=== PATIENT | female | born 1975 | race African-American/Black ===

== ENCOUNTER 2016-12-31 23:33 | Emergency (ER) | payer MEDICAID, OTHER ==
[~2016-12-31] VITALS: Ht 154.9 cm; Wt 79.4 kg
[~2016-12-31 23:33] MED LIST: KEFLEX500 MG ORAL
--- NOTE | 2017-01-01 00:05 | Emergency Room Report ---
History of Present Illness General Chief Complaint: Fever Source: Patient Present Illness HPI This is a 41-year-old female with a history of multiple sclerosis that went into remission. She also has a history of lupus that was in remission. She presents with chief complaint of fever and body pain. Onset for the last couple days. No nausea no vomiting. Denies any diarrhea. Pain is 8/10. She is on a second course of antibiotics for a sinus infection. She was on 10 days of Augmentin and now taking Bactrim. She has a son issue going on for a few months now. Has not seen ENT yet. She also has lymph nodes along both [place] next is been ongoing for many months. Allergies: Coded Allergies: CARBAMAZEPINE (Unverified Allergy, Unknown, 09/25/14) Patient History Past Medical History: see triage record, old chart reviewed Past Surgical History: other Pertinent Family History: none Social History: Denies: smoking Last Menstrual Period: december Now: No Immunizations: other Reviewed Nursing Documentation: PMH: Agreed, PSxH: Agreed Nursing Documentation-PMH Hx Neurological Problems: Yes - lupus, ms Review of Systems Constitutional: Reports: fever Eye: Denies: blurred vision, eye pain ENT: Denies: ear pain, nose congestion, throat swelling Respiratory: Denies: cough, shortness of breath Cardiovascular: Denies: chest pain, palpitations Gastrointestinal: Denies: abdominal pain, diarrhea, nausea, vomiting Musculoskeletal: Denies: back pain, joint pain Skin: Denies: rash Neurological: Denies: headache, numbness Endocrine: Denies: increased thirst, increased urine Hematologic/Lymphatic: Denies: easy bruising All Other Systems: negative except mentioned in HPI Physical Exam Vital Signs Date Time Temp Pulse Resp B/P Pulse Ox O2 Delivery O2 Flow Rate FiO2 12/31/16 23:40 99.9 101 18 103/64 96 Room Air vitals with fever Sp02 EP Interpretation: reviewed, normal General Appearance: well appearing, no apparent distress, alert Head: normocephalic, atraumatic Eyes: bilateral eye EOMI, bilateral eye PERRL ENT: hearing grossly normal, normal pharynx Neck: full range of motion, supple, no meningismus, other - Diffuse adenopathy Respiratory: chest non-tender, lungs clear, normal breath sounds Cardiovascular #1: regular rate, rhythm, no murmur Gastrointestinal: normal bowel sounds, non tender, no mass, no organomegaly, no bruit, non-distended Musculoskeletal: back normal, gait/station normal, normal range of motion Neurologic: alert, oriented x3 Psychiatric: mood/affect normal Skin: warm/dry Medical Decision Making Diagnostic Impression: Primary Impression: Fever Qualified Codes: R50.9 - Fever, unspecified Additional Impressions: Cervical adenopathy Anemia Qualified Codes: D64.9 - Anemia, unspecified Rhabdomyolysis Qualified Codes: M62.82 - Rhabdomyolysis Transaminitis Leukopenia Qualified Codes: D72.819 - Decreased white blood cell count, unspecified ER Course Issue with fever and vague symptoms. Most likely viral in nature. No evidence of sepsis. No evidence of septic joint. She is feeling better now. No evidence of bacterial infection. We'll discharge home. May be an exacerbation of her lupus. She will need a referral to see a film editor supervisor. Doubt leukemia or lymphoma. Lab Results Impression labs with elevated CPK Chest X-Ray Diagnostic Results EP Interpretation: Yes Findings: no consolidation, no effusion, no pneumothorax, no acute cardiopulmonary disease Number of Views: 1 Last Vital Signs Date Time Temp Pulse Resp B/P Pulse Ox O2 Delivery O2 Flow Rate FiO2 12/31/16 23:40 99.9 101 18 103/64 96 Room Air Status: improved Disposition: HOME, SELF-CARE Condition: Stable Scripts Ibuprofen* (MOTRIN*) 600 Mg Tablet 600 MG ORAL THREE TIMES A DAY, #30 TAB 0 Refills Prov: TEO LOCK M.D. 01/01/17 Prednisone* (PREDNISONE*) 20 Mg Tablet 60 MG ORAL DAILY, #15 TAB Prov: TEO LOCK M.D. 01/01/17 Patient Instructions: Fever, Adult, [id number] Additional Instructions: Followup with your DrKeith in 2-3 days. Recommend for her to see an ear nose and throat DrKeith and a film editor supervisor. Return if symptom worsen. TEO LOCK M.D. Jan 01, 2017 00:05
[2017-01-01] MEDS ORDERED: Acetaminophen 500mg (ES) tab ORAL ONE (00:15)
[2017-01-01 00:33] LABS: APPEARANCE,URINE CLEAR; KETONES,URINE NEGATIVE (NEGATIVE); LEUKOCYTE ESTERASE ,URINE 1+ (NEGATIVE); NITRITE,URINE NEGATIVE (NEGATIVE); PH,URINE 6 (4.5-8.0); PROTEIN,URINE NEGATIVE (NEGATIVE); UROBILINOGEN,URINE NORMAL MG/DL (0.0-1.0)
[2017-01-01 00:53] LABS: BACTERIA,URINE FEW /HPF; SQUAMOUS EPITHELIAL CELL,UR MODERATE /LPF (NONE/OCC)
[2017-01-01 00:56] LABS: MEAN CORPUSCULAR HEMOGLOBIN 25.1 PG (27.0-31.0); MEAN CORPUSCULAR HGB CONC 32.1 G/DL (32.0-36.0); MEAN CORPUSCULAR VOLUME 78 FL (80-99); MEAN PLATELET VOLUME 7.1 FL (6.5-10.1); PLATELET COUNT 178 K/UL (150-450); RED BLOOD COUNT 4.53 M/UL (4.20-5.40); RED CELL DISTRIBUTION WIDTH 14.1 % (11.6-14.8); WHITE BLOOD COUNT 2.9 K/UL (4.8-10.8)
[2017-01-01 01:20] LABS: ALANINE AMINOTRANSFERASE 53 U/L (3-33); ALBUMIN/GLOBULIN RATIO 2.2 (1.0-2.7); ANION GAP 19 (5-15); ASPARTATE AMINO TRANSFERASE 129 U/L (5-40); CALCIUM 8.7 mg/dL (8.6-10.2); CARBON DIOXIDE 19 mEQ/L (20-30); CHLORIDE 94 mEQ/L (98-107); GLOMERULAR FILTRATION RATE > 60 mL/min (>60); HEMOLYSIS 13; POTASSIUM 4.1 mEQ/L (3.4-4.9); SODIUM 132 mEQ/L (135-145); TOTAL PROTEIN 5.9 g/dL (6.6-8.7)
[2017-01-01 01:22] LABS: TROPONIN I < 0.30 ng/mL (<=0.30)
[2017-01-01 01:31] LABS: CKMB 20.9 ng/mL (< 3.8)
[2017-01-01] MEDS ORDERED: IBUPROFEN600 MG ORAL (02:12)
[2017-01-01] MEDS ORDERED: PREDNISONE20 MG ORAL (02:12)
[2017-01-01 02:20] VITALS: BP 110/64
[2017-01-01 02:22] VITALS: BP 110/64
[2017-01-01 08:11] LABS: BAND NEUTROPHILS % (MANUAL) 3 % (0-8); BASOPHILS % (MANUAL) 0 % (0-2); EOSINOPHILS % (MANUAL) 0 % (0-3); HYPOCHROMASIA 1+; LYMPHOCYTES % (MANUAL) 28 % (20-45); NEUTROPHILS % (MANUAL) 67 % (45-75); PLATELET ESTIMATE ADEQUATE; PLATELET MORPHOLOGY NORMAL; TOTAL CELLS COUNTED 100
--- NOTE | 2017-01-01 10:20 | Diagnostic Imaging Report ---
Clinical history: Shortness of breath Technique: Portable AP chest radiograph was obtained. Comparison: None Findings: The lungs are well inflated and clear. There is no pneumonia or pulmonary edema. There is no pleural effusion or pneumothorax. The cardiac and mediastinal silhouettes are normal in appearance. The bony thorax is unremarkable. Impression: No acute cardiopulmonary process.
== END 2017-01-01 02:22 | disposition home or self-care (01) ==
LOC: EMR 01-01 02:19
DX: R50.9 Fever, unspecified (principal); R59.0 Localized enlarged lymph nodes; D64.9 Anemia, unspecified; M32.9 Systemic lupus erythematosus, unspecified; G35 Multiple sclerosis
CPT/HCPCS: 36415; 71010; 80053; 81003; 81025; 82550; 82553; 83605; 84484; 85007; 85025; 87040; 96374; 99284

== ENCOUNTER 2018-01-08 00:51 | Emergency (ER) | payer MEDICAID ==
[~2018-01-08] VITALS: Ht 154.9 cm; Wt 79.4 kg
[~2018-01-08 00:51] MED LIST changes: +IBUPROFEN600 MG ORAL; +PREDNISONE20 MG ORAL
[2018-01-08] MEDS ORDERED: ACYCLOVIR400 MG ORAL (01:14)
[2018-01-08] MEDS ORDERED: VITAMIN D35000 UNI2 PO (01:14)
[2018-01-08 01:25] VITALS: BP 148/94
[2018-01-08] MEDS ORDERED: Albuterol ud Inhalation HHN ONE (01:30)
[2018-01-08] MEDS ORDERED: Ipratropium 0.02% Inh Soln 2.5ml UD HHN ONE (01:30)
[2018-01-08] MEDS ORDERED: PREDNISONE20 MG ORAL (02:16)
[2018-01-08] MEDS ORDERED: ALBUTEROL SULF8.5 GM INH (02:16)
[2018-01-08] MEDS ORDERED: AZITHROMYCIN250 MG ORAL (02:16)
--- NOTE | 2018-01-08 02:16 | Emergency Room Report ---
History of Present Illness General Chief Complaint: Upper Respiratory Illness Source: Patient Present Illness HPI Is a 42-year-old female with a history of asthma. She presents with chief complaint of shortness of breath. She's been coughing for the last 3 weeks. Her inhaler is not helping. Denies any fever or chills. Cough is nonproductive in nature. Worse with exertion. Worse with lying flat. Also losing her voice. No recent admission. No recent steroid use. Allergies: Coded Allergies: CARBAMAZEPINE (Unverified Allergy, Unknown, 09/25/14) Patient History Past Medical History: see triage record, old chart reviewed, asthma Past Surgical History: none Pertinent Family History: none Social History: Denies: smoking Last Menstrual Period: December Now: No Immunizations: other Reviewed Nursing Documentation: PMH: Agreed; PSxH: Agreed Nursing Documentation-PMH Hx Neurological Problems: Yes - lupus, ms,MIGRAINE Review of Systems Eye: Denies: eye pain, blurred vision ENT: Reports: throat pain; Denies: ear pain, nose congestion, throat swelling Respiratory: Reports: cough, shortness of breath, wheezing Cardiovascular: Denies: chest pain, palpitations Gastrointestinal: Denies: abdominal pain, diarrhea, nausea, vomiting Musculoskeletal: Denies: back pain, joint pain Skin: Denies: rash Neurological: Denies: headache, numbness Endocrine: Denies: increased thirst, increased urine Hematologic/Lymphatic: Denies: easy bruising All Other Systems: negative except mentioned in HPI Physical Exam Vital Signs Date Time Temp Pulse Resp B/P (MAP) Pulse Ox O2 Delivery O2 Flow Rate FiO2 01/08/18 01:06 99.4 85 16 148/94 97 Room Air 99.3 01/08/18 01:44 21 vitals normal except for low-grade fever Sp02 EP Interpretation: reviewed, normal General Appearance: well appearing, no apparent distress, alert Head: normocephalic, atraumatic Eyes: bilateral eye PERRL, bilateral eye EOMI ENT: hearing grossly normal, normal pharynx Neck: full range of motion, supple, no meningismus Respiratory: chest non-tender, respiratory distress, decreased breath sounds, accessory muscle use, wheezing Cardiovascular #1: regular rate, rhythm, no murmur Gastrointestinal: normal bowel sounds, non tender, no mass, no organomegaly, no bruit, non-distended Musculoskeletal: back normal, gait/station normal, normal range of motion Psychiatric: mood/affect normal Skin: warm/dry Medical Decision Making Diagnostic Impression: Primary Impression: Upper respiratory infection Qualified Codes: J06.9 - Acute upper respiratory infection, unspecified Additional Impressions: Atypical pneumonia Asthma exacerbation Qualified Codes: J45.21 - Mild intermittent asthma with (acute) exacerbation ER Course Patient presents with asthma exacerbation. She had a URI that has been persistent for 3 weeks. Concerning for secondary atypical pneumonia. We'll go ahead and put on antibiotics. Better after breathing treatment. No evidence of sepsis, ACS, PE, dissection to name a few. Last Vital Signs Date Time Temp Pulse Resp B/P (MAP) Pulse Ox O2 Delivery O2 Flow Rate FiO2 01/08/18 02:06 80 20 100 Room Air 21 01/08/18 01:25 99.3 148/94 99.3 Status: improved Disposition: HOME, SELF-CARE Condition: Stable Scripts Azithromycin* (ZITHROMAX*) 250 Mg Tablet 250 MG ORAL DAILY, #6 TAB 0 Refills Take two tablets by mouth today, then take one tablet by mouth daily for four days Prov: TEO LOCK M.D. 01/08/18 Prednisone* (PREDNISONE*) 20 Mg Tablet 60 MG ORAL DAILY, #12 TAB Prov: TEO LOCK M.D. 01/08/18 Albuterol Sulfate* (ALBUTEROL SULFATE MDI*) 8.5 Gm Hfa.aer.ad 2 PUFF INH Q4H PRN for cough/wheezing, #1 EA 0 Refills Prov: TEO LOCK M.D. 01/08/18 Referrals: [facility]ERR[facility] (PCP) Patient Instructions: Upper Respiratory Infection, Adult Additional Instructions: Follow-up with your DrKeith in 2 to 3 days. Return if symptom worsen. TEO LOCK M.D. Jan 08, 2018 02:16
[2018-01-08 02:21] VITALS: BP 148/94
== END 2018-01-08 02:21 | disposition home or self-care (01) ==
LOC: EMR 01:37
DX: J06.9 Acute upper respiratory infection, unspecified (principal); J18.9 Pneumonia, unspecified organism; J45.901 Unspecified asthma with (acute) exacerbation; M32.9 Systemic lupus erythematosus, unspecified
CPT/HCPCS: 94640; 99284; J7512

== ENCOUNTER 2018-01-22 14:42 | Emergency (ER) | payer MEDICAID ==
[~2018-01-22] VITALS: Ht 157.5 cm; Wt 79.4 kg
[~2018-01-22 14:42] MED LIST changes: +ACYCLOVIR400 MG ORAL; +ALBUTEROL SULF8.5 GM INH; +AZITHROMYCIN250 MG ORAL; +VITAMIN D35000 UNI2 PO
[2018-01-22 14:46] VITALS: BP 140/76
[2018-01-22] MEDS ORDERED: GUAIFENESIN-CO118 M1 ORAL (15:04)
[2018-01-22] MEDS ORDERED: PREDNISONE20 MG ORAL (15:04)
[2018-01-22] MEDS ORDERED: ZYRTEC10 MG ORAL (15:04)
--- NOTE | 2018-01-22 15:09 | Emergency Room Report ---
History of Present Illness General Chief Complaint: Upper Respiratory Illness Source: Patient, Medical Record Present Illness HPI Patient presents with complaints of cough She reports that after her initial visit she started doing somewhat better Several days ago again began having cough She feels that at nighttime or when there is heat the cough is worse Denies any shortness of breath denies any chest pain patient has long-standing history of asthma She also does have a cat however reports that she has been allergy tested and does not have allergies to the CAT Patient has albuterol at home has also had Atrovent Patient also reports using cough syrup Allergies: Coded Allergies: CARBAMAZEPINE (Unverified Allergy, Unknown, 09/25/14) Patient History Past Medical History: see triage record Pertinent Family History: none Last Menstrual Period: 01/14/18 Reviewed Nursing Documentation: PMH: Agreed; PSxH: Agreed Nursing Documentation-PMH Past Medical History: No History, Except For Hx Neurological Problems: Yes - lupus, ms,MIGRAINE Review of Systems All Other Systems: negative except mentioned in HPI Physical Exam Vital Signs Date Time Temp Pulse Resp B/P (MAP) Pulse Ox O2 Delivery O2 Flow Rate FiO2 01/22/18 14:46 76 18 Room Air 01/22/18 14:46 98.3 140/76 97 98.3 Sp02 EP Interpretation: reviewed, normal General Appearance: well appearing, no apparent distress Head: normocephalic, atraumatic Eyes: bilateral eye PERRL, bilateral eye EOMI ENT: hearing grossly normal, normal pharynx, TMs + canals normal, uvula midline Neck: full range of motion, supple, no meningismus, no bony tend Respiratory: lungs clear, normal breath sounds, no rhonchi, no respiratory distress, no retraction, no accessory muscle use, other - However the patient does have intermittent dry coughing episodes Cardiovascular #1: normal peripheral pulses, regular rate, rhythm, no edema, no gallop, no JVD, no murmur Gastrointestinal: normal bowel sounds, non tender, soft, no mass, no organomegaly, non-distended, no guarding, no hernia, no pulsatile mass, no rebound Musculoskeletal: normal inspection Neurologic: oriented x3, responsive, carpenter repair III-XII nml as tested, motor strength/ tone normal, sensory intact Psychiatric: mood/affect normal Skin: normal color, no rash, warm/dry, palpation normal Lymphatic: normal inspection, no adenopathy Medical Decision Making Diagnostic Impression: Primary Impression: reactive airway disease ER Course Given the patient's history and presentation Patient appears to have symptoms of URI pathology There appears to be some asthmatic type component along with some allergic component as well Patient's respirations are appropriate, lung sánchez are clear We will attempt different medications such as antihistamine as well and patient requires close outpatient follow-up Last Vital Signs Date Time Temp Pulse Resp B/P (MAP) Pulse Ox O2 Delivery O2 Flow Rate FiO2 01/22/18 14:46 98.3 76 18 140/76 97 Room Air 98.2 Status: unchanged Disposition: HOME, SELF-CARE Condition: Stable Scripts Guaifenesin/Codeine Phos* (ROBITUSSIN AC*) 118 Ml Liquid 5 ML ORAL Q6H PRN for For Cough for 7 Days, #118 ML 0 Refills Prov: Yoana Hernandez DO 01/22/18 Cetirizine Hcl* (ZYRTEC*) 10 Mg Tablet 10 MG ORAL DAILY, #30 TAB 0 Refills Prov: Yoana Hernandez DO 01/22/18 Prednisone* (PREDNISONE*) 20 Mg Tablet 20 MG ORAL BID, #12 TAB Prov: Yoana Hernandez DO 01/22/18 Patient Instructions: Upper Respiratory Infection, Adult, Asthma, Acute Bronchospasm Additional Instructions: Patient is provided with the discharge instructions notified to follow up with primary doctor in the next 2-3 days otherwise return to the er with any worsening symptoms. Please note that this report is being documented using [employer] technology. This can lead to erroneous entry secondary to incorrect interpretation by the dictating instrument. Yoana Hernandez DO Jan 22, 2018 15:08
[2018-01-22 15:11] VITALS: BP 149/89
== END 2018-01-22 15:25 | disposition home or self-care (01) ==
LOC: EMR 15:18
DX: J45.909 Unspecified asthma, uncomplicated (principal); Z88.8 Allergy status to other drugs, medicaments and biological substances
CPT/HCPCS: 99284

== ENCOUNTER 2018-05-03 21:55 | Emergency (ER) | payer MEDICAID ==
[~2018-05-03] VITALS: Ht 157.5 cm; Wt 81.6 kg
[~2018-05-03 21:55] MED LIST changes: +GUAIFENESIN-CO118 M1 ORAL; +ZYRTEC10 MG ORAL
[2018-05-03 22:12] VITALS: BP 147/66
[2018-05-03] MEDS ORDERED: IBUPROFEN600 MG ORAL (22:34)
[2018-05-03 22:48] VITALS: BP 0/0
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
--- NOTE | 2018-05-04 10:04 | Diagnostic Imaging Report ---
Indication: Pain Technique: 3 views left hand Comparison: none Findings: There is a fracture deformity of the base of the fifth distal phalanx with suggestion of acute fracture lines, only visible on the lateral view. No other acute fractures. No dislocations. The joint spaces are preserved. Impression: Positive for fracture of the base of the fifth distal phalanx This was discussed by phone with Dr. Cadet in the emergency room at the time of interpretation
== END 2018-05-03 22:55 | disposition home or self-care (01) ==
LOC: EMR 22:50
DX: S63.617A Unspecified sprain of left little finger, initial encounter (principal); Y04.0XXA Assault by unarmed brawl or fight, initial encounter; Y93.89 Activity, other specified; Y92.9 Unspecified place or not applicable
CPT/HCPCS: 99283

== ENCOUNTER 2018-09-18 13:23 | Inpatient (IN) | payer MEDICAID ==
[~2018-09-18] VITALS: Ht 157.5 cm; Wt 79.4 kg
[2018-09-18] MEDS ORDERED: plaquenil ORAL (13:44)
[2018-09-18 14:05] VITALS: BP 166/92
[2018-09-18] MEDS ORDERED: Albuterol ud Inhalation HHN ONE (14:30)
--- NOTE | 2018-09-18 14:30 | Emergency Room Report ---
History of Present Illness General Chief Complaint: Flu Like Symptoms Source: Patient Present Illness HPI The patient states that she has had progressively worsening cough, congestion and shortness of breath for the past week. The patient states that she is also had bodyaches and fever and chills. She states that her temp has been anywhere from 99-102. She states she has tried many different [id number] cold and flu medications without relief. She has had sputum production. She denies headache or neck pain. She denies nausea or vomiting. She denies abdominal pain. She denies dysuria or hematuria. She denies chest pain. She does have a history of lupus. She is on multiple medications to include Plaquenil. She did not receive the influenza vaccine. She has no other complaints. Allergies: Coded Allergies: CARBAMAZEPINE (Unverified Allergy, Unknown, 09/25/14) Patient History Past Medical History: see triage record, asthma, other - Lupus, MS Social History: Denies: smoking, alcohol use, drug use Last Menstrual Period: 09/01/2018 Reviewed Nursing Documentation: PMH: Agreed; PSxH: Agreed Nursing Documentation-PMH Hx Cardiac Problems: No Hx Hypertension: No Hx Pacemaker: No Hx Asthma: Yes Hx COPD: No Hx Diabetes: No Hx Cancer: No Hx Gastrointestinal Problems: No Hx Dialysis: No History Of Psychiatric Problem: No Hx Neurological Problems: Yes - Lupus, MS, MIGRAINE Hx Cerebrovascular Accident: No Hx Seizures: No Review of Systems All Other Systems: negative except mentioned in HPI Physical Exam Vital Signs Date Time Temp Pulse Resp B/P (MAP) Pulse Ox O2 Delivery O2 Flow Rate FiO2 09/18/18 13:38 98.6 85 16 148/88 96 Room Air 09/18/18 14:05 100 Sp02 EP Interpretation: reviewed, normal General Appearance: no apparent distress, alert, GCS 15, non-toxic Head: normocephalic, atraumatic Eyes: bilateral eye normal inspection, bilateral eye PERRL ENT: hearing grossly normal, normal pharynx, no angioedema, normal voice Neck: full range of motion, supple/symm/no masses Respiratory: chest non-tender, no respiratory distress, no retraction, no accessory muscle use, speaking full sentences, wheezing, expiration, other - Recurrent coughing episodes Cardiovascular #1: regular rate, rhythm, no edema Gastrointestinal: normal bowel sounds, non tender, soft, non-distended, no guarding, no rebound Rectal: deferred Musculoskeletal: back normal, gait/station normal, normal range of motion, non- tender Neurologic: alert, oriented x3, responsive, motor strength/tone normal, sensory intact, speech normal Psychiatric: judgement/insight normal, memory normal, mood/affect normal, no suicidal/homicidal ideation Skin: normal color, no rash, warm/dry, well hydrated Medical Decision Making Diagnostic Impression: Primary Impression: Asthma exacerbation Additional Impression: Pneumonia ER Course This patient has pneumonia. She also has an asthma exacerbation. She appears clinically ill. She is having active rigors and febrile to 103 here in the emergency department. She is given IV Rocephin and albuterol treatments. I feel that this patient should be admitted for further monitoring and pulmonary hygiene. I am concerned that the patient's asthma exacerbation could worsen. The patient is also immunocompromised at baseline secondary to MS and lupus and she could deteriorate rapidly. She is admitted for further evaluation and treatment. Please note that this Emergency Department Report was dictated using [employer] technology software, occasionally this can lead to erroneous entry secondary to interpretation by the dictation equipment. Laboratory Tests Test 09/18/18 14:40 White Blood Count 7.0 K/UL (4.8-10.8) Red Blood Count 4.15 M/UL (4.20-5.40) L Hemoglobin 10.7 G/DL (12.0-16.0) L Hematocrit 33.2 % (37.0-47.0) L Mean Corpuscular Volume 80 FL (80-99) Mean Corpuscular Hemoglobin 25.8 PG (27.0-31.0) L Mean Corpuscular Hemoglobin Concent 32.3 G/DL (32.0-36.0) Red Cell Distribution Width 11.8 % (11.6-14.8) Platelet Count 175 K/UL (150-450) Mean Platelet Volume 9.0 FL (6.5-10.1) Neutrophils (%) (Auto) 71.1 % (45.0-75.0) Lymphocytes (%) (Auto) 21.8 % (20.0-45.0) Monocytes (%) (Auto) 4.7 % (1.0-10.0) Eosinophils (%) (Auto) 1.1 % (0.0-3.0) Basophils (%) (Auto) 1.3 % (0.0-2.0) Sodium Level 141 MMOL/L (136-145) Potassium Level 3.5 MMOL/L (3.5-5.1) Chloride Level 105 MMOL/L (98-107) Carbon Dioxide Level 22 MMOL/L (21-32) Anion Gap 14 mmol/L (5-15) Blood Urea Nitrogen 11 mg/dL (7-18) Creatinine 0.8 MG/DL (0.55-1.30) Estimate Glomerular Filtration Rate > 60 mL/min (>60) Glucose Level 74 MG/DL (74-106) Calcium Level 8.8 MG/DL (8.5-10.1) Total Bilirubin 0.4 MG/DL (0.2-1.0) Aspartate Amino Transferase (AST) 41 U/L (15-37) H Alanine Aminotransferase (ALT) 29 U/L (12-78) Alkaline Phosphatase 110 U/L (46-116) Total Protein 6.9 G/DL (6.4-8.2) Albumin 3.2 G/DL (3.4-5.0) L Globulin 3.7 g/dL Albumin/Globulin Ratio 0.9 (1.0-2.7) L Microbiology Date/Time Source Procedure Growth Status 09/18/18 13:10 Nasal Nares Influenza Types A,B Antigen (CASSANDRA) - Final Complete Chest X-Ray Diagnostic Results Chest X-Ray Diagnostic Results : Chest X-Ray Ordered: Yes # of Views/Limited/Complete: 1 View Indication: Other - cough EP Interpretation: No Interpretation: other - LLL opacity Impression: Other - See above and official report in EMR Electronically Signed by: Gaby Lang DO Last Vital Signs Date Time Temp Pulse Resp B/P (MAP) Pulse Ox O2 Delivery O2 Flow Rate FiO2 09/18/18 14:05 98.5 77 12 166/92 100 Room Air 09/18/18 14:05 100 Disposition: ADMITTED INPATIENT Condition: Serious Gaby Lang DO Sep 18, 2018 14:29
[2018-09-18 15:00] LABS: BASOPHILS % (AUTO) 1.3 % (0.0-2.0); EOSINOPHILS % (AUTO) 1.1 % (0.0-3.0); HEMATOCRIT 33.2 % (37.0-47.0); HEMOGLOBIN 10.7 G/DL (12.0-16.0); LYMPHOCYTES % (AUTO) 21.8 % (20.0-45.0); MEAN CORPUSCULAR VOLUME 80 FL (80-99); MONOCYTES % (AUTO) 4.7 % (1.0-10.0); NEUTROPHILS % (AUTO) 71.1 % (45.0-75.0); PLATELET COUNT 175 K/UL (150-450); RED BLOOD COUNT 4.15 M/UL (4.20-5.40); RED CELL DISTRIBUTION WIDTH 11.8 % (11.6-14.8)
[2018-09-18 15:09] LABS: ANION GAP 14 mmol/L (5-15); BLOOD UREA NITROGEN 11 mg/dL (7-18); CALCIUM 8.8 MG/DL (8.5-10.1); CARBON DIOXIDE 22 MMOL/L (21-32); CHLORIDE 105 MMOL/L (98-107); CREATININE 0.8 MG/DL (0.55-1.30); POTASSIUM 3.5 MMOL/L (3.5-5.1); SODIUM 141 MMOL/L (136-145)
[2018-09-18 15:13] LABS: ALANINE AMINOTRANSFERASE 29 U/L (12-78); ALBUMIN 3.2 G/DL (3.4-5.0); ALBUMIN/GLOBULIN RATIO 0.9 (1.0-2.7); ALKALINE PHOSPHATASE 110 U/L (46-116); ASPARTATE AMINO TRANSFERASE 41 U/L (15-37); BILIRUBIN,TOTAL 0.4 MG/DL (0.2-1.0)
--- NOTE | 2018-09-18 15:58 | Diagnostic Imaging Report ---
Indication: Cough Comparison: 01/01/2017 A single view chest radiograph was obtained. Findings: There is a faint density in the retrocardiac aspect of the left lower lobe. Pneumonia not excluded. Correlate clinically. This is questionable. Heart size is normal. Bones are unremarkable. IMPRESSION: Query pneumonia at the left lung base.
[2018-09-18 16:12] VITALS: BP 158/66
[2018-09-18] MEDS ORDERED: cefTRIAXone 1 GM in NS 55 ML IVPB ONE (17:15)
[2018-09-18] MEDS ORDERED: Acetaminophen 500mg (ES) tab ORAL ONE (17:15)
[2018-09-18] MEDS ORDERED: IBUPROFEN800 M1 PO (18:24)
[2018-09-18] MEDS ORDERED: DICLOFENAC SODI75 MG ORAL (18:26)
[2018-09-18 20:00] VITALS: BP 122/62
[2018-09-18 20:50] VITALS: BP 132/78
[2018-09-18] MEDS: Heparin 5000 units/ml inj SUBQ SCH (21:00)
[2018-09-18] MEDS ORDERED: LORazepam Inj 2mg/ml 1ml IV PRN (21:15)
[2018-09-18] MEDS ORDERED: Nitroglycerin Subl 0.4mg tab SL PRN (21:15)
[2018-09-18] MEDS ORDERED: Ketorolac 30mg Inj IV PRN (21:15)
[2018-09-18] MEDS: Piperacillin/Tazobactam 3.375 GM in D5W 110 ML IVPB SCH (22:26)
[2018-09-18] MEDS: Solu-MEDROL 125mg Inj IV SCH (23:21)
[2018-09-18] MEDS: Promethazine/Codeine 5ml UD ORAL PRN (23:22)
[2018-09-19] VITALS: BP 124/75
[2018-09-19 04:00] VITALS: BP 148/79
[2018-09-19] MEDS: Solu-MEDROL 125mg Inj IV SCH ×3 (05:36→17:16)
[2018-09-19] MEDS: Piperacillin/Tazobactam 3.375 GM in D5W 110 ML IVPB SCH ×3 (05:36→21:21)
[2018-09-19] MEDS: Albuterol/Ipratropium 3ml neb HHN PRN ×3 (05:55→13:49)
[2018-09-19] MEDS: Promethazine/Codeine 5ml UD ORAL PRN ×3 (05:58→21:21)
[2018-09-19] MEDS: Morphine Sulfate 2mg/ml Inj IVP PRN ×2 (06:20→12:06)
[2018-09-19 08:00] VITALS: BP 144/80
[2018-09-19] MEDS: Heparin 5000 units/ml inj SUBQ SCH ×2 (09:00→21:00)
[2018-09-19 12:00] VITALS: BP 140/80
--- NOTE | 2018-09-19 12:57 | Consultation ---
History of Present Illness General Date patient seen: Sep 19, 2018 Chief Complaint: Flu Like Symptoms Present Illness HPI 43 year old male with hx of SLE (inactive for years), Asthma presented to ER with CC of progressively worsening cough, congestion and shortness of breath for the past week with fever and chills. She states that her temp has been anywhere from 99-102. She has had sputum production. She denied chest pain. She is on Plaquenil for her Lupus. she was diagnosed to have acute exacerbation of Asthma with purulent bronchitis and admitted for further treatment. Allergies: Coded Allergies: CARBAMAZEPINE (Unverified Allergy, Unknown, 09/25/14) Medication History Scheduled Acyclovir* (Acyclovir*), 400 MG ORAL DAILY, (Reported) Cetirizine Hcl* (Zyrtec*), 10 MG ORAL DAILY Diclofenac Sod* (Voltaren*), 75 MG ORAL DAILY, (Reported) [plaquenil], 400 MG ORAL DAILY, (Reported) Scheduled PRN Albuterol Sulfate* (Albuterol Sulfate Mdi*), 2 PUFF INH Q4H PRN for cough/ wheezing Ibuprofen (Ibuprofen), 800 MG PO Q8HR PRN for FEVER, (Reported) Discontinued Medications Guaifenesin/Codeine Phos* (Robitussin Ac*), 5 ML ORAL Q6H PRN for For Cough Discontinued Reason: Pt stopped taking med Patient History Healthcare decision maker N Resuscitation status Advanced Directive on File Past Medical/Surgical History Past Medical/Surgical History: (1) History of systemic lupus erythematosus (SLE) Review of Systems Constitutional: Reports: fever, malaise All Other Systems: negative except mentioned in HPI Physical Exam General Appearance: WD/WN Lines, tubes and drains: peripheral HEENT: normocephalic, atraumatic Neck: non-tender, supple Respiratory/Chest: chest wall non-tender, crackles/rales, rhonchi - left, rhonchi - right Cardiovascular/Chest: normal peripheral pulses, normal rate Abdomen: normal bowel sounds, non tender Genitourinary/Rectal: normal genital exam Extremities: normal range of motion Last 24 Hour Vital Signs Date Time Temp Pulse Resp B/P (MAP) Pulse Ox O2 Delivery O2 Flow Rate FiO2 09/19/18 09:21 80 14 96 Room Air 21 09/19/18 09:14 88 14 94 Room Air 21 09/19/18 09:00 Room Air 09/19/18 08:00 98.0 69 18 144/80 (101) 97 09/19/18 06:04 98 24 98 Room Air 21 09/19/18 05:54 101 22 96 Room Air 21 09/19/18 04:51 84 20 Room Air 21 09/19/18 04:00 97.4 66 18 148/79 (102) 98 09/19/18 00:00 98.1 98 18 124/75 (91) 98 09/18/18 21:18 Room Air 09/18/18 20:50 98.3 75 20 132/78 (96) 98 09/18/18 20:39 99.6 129 18 122/62 98 Room Air 21 09/18/18 20:00 99.6 18 122/62 98 09/18/18 19:15 99.6 09/18/18 17:51 103.6 09/18/18 16:12 129 25 158/66 99 Room Air 09/18/18 15:22 121 22 100 Room Air 21 09/18/18 14:37 80 22 Room Air 21 09/18/18 14:35 80 22 100 Room Air 21 09/18/18 14:05 98.5 77 12 166/92 100 Room Air 09/18/18 14:05 77 12 Room Air 100 09/18/18 13:38 98.6 85 16 148/88 96 Room Air Intake and Output 09/18/18 09/19/18 19:00 07:00 Intake Total 1000 ml 617.5 ml Output Total 200 ml Balance 1000 ml 417.5 ml Intake Oral 480 ml IV Total 1000 ml 137.5 ml Output Urine Total 200 ml # Voids 3 Laboratory Tests Test 09/18/18 14:40 White Blood Count 7.0 K/UL (4.8-10.8) Red Blood Count 4.15 M/UL (4.20-5.40) L Hemoglobin 10.7 G/DL (12.0-16.0) L Hematocrit 33.2 % (37.0-47.0) L Mean Corpuscular Volume 80 FL (80-99) Mean Corpuscular Hemoglobin 25.8 PG (27.0-31.0) L Mean Corpuscular Hemoglobin Concent 32.3 G/DL (32.0-36.0) Red Cell Distribution Width 11.8 % (11.6-14.8) Platelet Count 175 K/UL (150-450) Mean Platelet Volume 9.0 FL (6.5-10.1) Neutrophils (%) (Auto) 71.1 % (45.0-75.0) Lymphocytes (%) (Auto) 21.8 % (20.0-45.0) Monocytes (%) (Auto) 4.7 % (1.0-10.0) Eosinophils (%) (Auto) 1.1 % (0.0-3.0) Basophils (%) (Auto) 1.3 % (0.0-2.0) Sodium Level 141 MMOL/L (136-145) Potassium Level 3.5 MMOL/L (3.5-5.1) Chloride Level 105 MMOL/L (98-107) Carbon Dioxide Level 22 MMOL/L (21-32) Anion Gap 14 mmol/L (5-15) Blood Urea Nitrogen 11 mg/dL (7-18) Creatinine 0.8 MG/DL (0.55-1.30) Estimat Glomerular Filtration Rate > 60 mL/min (>60) Glucose Level 74 MG/DL (74-106) Calcium Level 8.8 MG/DL (8.5-10.1) Total Bilirubin 0.4 MG/DL (0.2-1.0) Aspartate Amino Transf (AST/SGOT) 41 U/L (15-37) H Alanine Aminotransferase (ALT/SGPT) 29 U/L (12-78) Alkaline Phosphatase 110 U/L (46-116) Total Protein 6.9 G/DL (6.4-8.2) Albumin 3.2 G/DL (3.4-5.0) L Globulin 3.7 g/dL Albumin/Globulin Ratio 0.9 (1.0-2.7) L Microbiology Date/Time Source Procedure Growth Status 09/18/18 23:20 Sputum Gram Stain - Final Resulted 09/18/18 23:20 Sputum Sputum Culture Pending Resulted 09/18/18 13:10 Nasal Nares Influenza Types A,B Antigen (CASSANDRA) - Final Complete Height (Feet): 5 Height (Inches): 2.00 Weight (Pounds): 175 Medications Current Medications Medications (Trade) Dose Ordered Sig/Aileen Route PRN Reason Start Time Stop Time Status Last Admin Dose Admin Acetaminophen (Tylenol) 650 mg Q6H PRN ORAL Mild Pain/Temp > 100.5 09/18/18 21:15 10/18/18 21:14 Albuterol/ Ipratropium (Albuterol/ Ipratropium) 3 ml Q4H PRN HHN dyspnea 09/18/18 21:15 09/23/18 21:14 09/19/18 09:13 Dextrose (Dextrose 50%) 25 ml Q30M PRN IV Hypoglycemia 09/18/18 21:15 10/18/18 21:14 Dextrose (Dextrose 50%) 50 ml Q30M PRN IV Hypoglycemia 09/18/18 21:15 10/18/18 21:14 Heparin Sodium (Porcine) (Heparin 5000 units/ml) 5,000 units EVERY 12 HOURS SUBQ 09/18/18 21:00 10/18/18 20:59 Ketorolac Tromethamine (Toradol 30mg) 30 mg Q8H PRN IV moderate pain 4-6 09/18/18 21:15 09/23/18 21:14 Lorazepam (Ativan 2mg/ml 1ml) 0.5 mg Q4H PRN IV For Anxiety 09/18/18 21:15 09/25/18 21:14 Methylprednisolone Sodium Succinate (Solu-MEDROL) 60 mg EVERY 6 HOURS IV 09/19/18 00:00 10/19/18 00:00 09/19/18 12:06 Morphine Sulfate (Morphine Sulfate) 2 mg Q4H PRN IVP severe pain 7-10 09/18/18 21:15 09/25/18 21:14 09/19/18 12:06 Nitroglycerin (Ntg) 0.4 mg Q5M X 3 DOSES PRN SL Prn Chest Pain 09/18/18 21:15 10/18/18 21:14 Ondansetron HCl (Zofran) 4 mg Q6H PRN IVP Nausea & Vomiting 09/18/18 21:15 10/18/18 21:14 Piperacillin Sod/ Tazobactam Sod 3.375 gm/Dextrose 110 ml @ 27.5 mls/hr EVERY 8 HOURS IVPB 09/18/18 22:00 09/25/18 21:59 09/19/18 05:36 Promethazine HCl/ Codeine (Phenergan with Codeine) 5 ml Q6H PRN ORAL cough 09/18/18 21:15 10/18/18 21:14 09/19/18 05:58 Temazepam (Restoril) 15 mg HSPRN PRN ORAL Insomnia 09/18/18 21:15 09/25/18 21:14 09/19/18 01:18 Theophylline (Bennett-Dur) 100 mg EVERY 12 HOURS ORAL 09/19/18 21:00 10/19/18 20:59 Assessment/Plan Problem List: (1) Asthma exacerbation ICD Codes: J45.901 - Unspecified asthma with (acute) exacerbation SNOMED: 312120364 (2) Pneumonia ICD Codes: J18.9 - Pneumonia, unspecified organism SNOMED: 815777321 (3) History of systemic lupus erythematosus (SLE) ICD Codes: Z87.39 - Personal history of other diseases of the musculoskeletal system and connective tissue SNOMED: 490664710 Assessment/Plan respiratory treatment iv steroids iv abx check sputum Rheumatology to see ( if available) Kadeem Lainez MD Sep 19, 2018 12:57
[2018-09-19 16:00] VITALS: BP 150/68
[2018-09-19] MEDS ORDERED: Tubing IV Secondary IV ONE (16:57)
[2018-09-19] MEDS ORDERED: NS 500ML ONE (16:57)
[2018-09-19 20:00] VITALS: BP 153/78
--- NOTE | 2018-09-19 21:10 | History & Physical ---
History and Physical History & Physicial Dictated for Int Med-Dr Gonzalez no. [id number]. Leonid Salmeron MD Sep 19, 2018 21:10
[2018-09-19] MEDS: Theophylline ER 100mg ORAL SCH (21:21)
--- NOTE | 2018-09-19 23:45 | History and Physical Report ---
DATE OF ADMISSION: 09/19/2018 CHIEF COMPLAINT: The patient is a 43-year-old female, presents with chief complaint of shortness of breath and cough. HISTORY OF PRESENT ILLNESS: Began on 09/10/2018. The patient was exposed to an upper respiratory tract infection by her grandchild. The patient states since that time, she has had fevers and chills. The patient has body aches. The patient has a cough, which is productive of a yellowish green phlegm. The patient also developed shortness of breath. The patient presented to [place] emergency room. The patient is admitted for acute exacerbation of asthma versus pneumonia. PAST MEDICAL HISTORY: Significant for: 1. Asthma. 2. Lupus. 3. History of multiple sclerosis. PAST SURGICAL HISTORY: Significant for bilateral tubal ligation. CURRENT MEDICATIONS: 1. Acyclovir 400 mg p.o. daily. 2. Albuterol metered-dose inhaler two puffs p.o. q.i.d. p.r.n. 3. Zyrtec 10 mg p.o. daily. 4. Voltaren 75 mg p.o. daily. 5. Ibuprofen 800 mg p.o. q.8 h. p.r.n. 6. Plaquenil 40 mg p.o. daily. ALLERGIES: To Tegretol. 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 The patient denies tobacco use. The patient admits to rare alcohol use. REVIEW OF SYSTEMS: CONSTITUTIONAL: The patient denies weight loss or weight gain. The patient denies fevers or chills. HEENT: The patient denies ear or throat pain. The patient denies headache. CARDIOVASCULAR: The patient denies palpitations or chest pain. CHEST: The patient complains of shortness of breath as above. The patient complains of productive cough. The patient denies wheezes. ABDOMEN: The patient denies nausea, vomiting, diarrhea, or constipation. GENITOURINARY: The patient denies dysuria or increased frequency of urination. NEUROMUSCULAR: The patient denies seizures or generalized weakness. PHYSICAL EXAMINATION: VITAL SIGNS: Temperature 98.9, respirations 18, pulse 74, and blood pressure 140/80. GENERAL: The patient is a well-developed and well-nourished slightly obese female, in no apparent distress. HEENT: Eyes, pupils equal and responsive to light and accommodation. Extraocular movements are intact. NECK: Supple without lymphadenopathy. CHEST: Lungs are with diffuse wheezes bilaterally. There are no crackles heard. There are decreased breath sounds in the left lower lobe. CARDIOVASCULAR: Regular rhythm and rate. S1, S2 are normal without murmurs, rubs, or gallops. ABDOMEN: Soft, nontender, and nondistended with positive bowel sounds. No evidence of hepatosplenomegaly. Currently, no rebound or guarding noted. EXTREMITIES: Negative for clubbing, cyanosis, or edema. RECTAL: Refused. GENITAL: Refused. NEUROLOGIC: Cranial nerves II through XII are grossly intact without focal deficits. Motor strength is 5/5 bilaterally intact. Deep tendon reflexes are 2+ plantar. LABORATORY AND DIAGNOSTIC DATA: A chest x-ray showed a faint density in the retrocardiac area of the left lower lobe. WBC 7.0, hemoglobin 10.7, hematocrit 33.2, and platelets 175,000. Sodium 141, potassium 3.5, chloride 105, CO2 22, BUN 11, creatinine 0.8, and glucose 74. ASSESSMENT: This is a 43-year-old female with: 1. Left lower lobe pneumonia. 2. Shortness of breath. 3. Asthma. 4. Systemic lupus. 5. Multiple sclerosis. TREATMENT: 1. Left lower lobe pneumonia. A Pulmonary consultation has been obtained with Dr. Kadeem Lainez. The patient has been started empirically on intravenous Zosyn. We will follow recommendations of Pulmonary. 2. Shortness of breath/asthma. The patient has been started empirically on IV Solu-Medrol. The patient is also on theophylline. We will follow recommendations of Pulmonary. 3. Systemic lupus. Continue Plaquenil as above. 4. History of multiple sclerosis. Leonid Salmeron M.D. DR: YAMILA JOB#: [id number] CC:
[2018-09-20] VITALS (8 sets, daily range): BP systolic 146–173; BP diastolic 79–102
[2018-09-20] MEDS: Solu-MEDROL 125mg Inj IV SCH ×3 (00:07→12:03)
[2018-09-20] MEDS: Morphine Sulfate 2mg/ml Inj IVP PRN ×3 (00:08→19:57)
[2018-09-20] MEDS: Albuterol/Ipratropium 3ml neb HHN PRN ×2 (02:14→13:22)
[2018-09-20] MEDS: Piperacillin/Tazobactam 3.375 GM in D5W 110 ML IVPB SCH ×3 (05:25→21:55)
[2018-09-20] MEDS: Theophylline ER 100mg ORAL SCH ×2 (08:58→21:55)
[2018-09-20] MEDS: Heparin 5000 units/ml inj SUBQ SCH ×2 (08:59→21:00)
[2018-09-20 09:13] LABS: HEMATOCRIT 31.8 % (37.0-47.0); HEMOGLOBIN 10.4 G/DL (12.0-16.0); MEAN CORPUSCULAR VOLUME 79 FL (80-99); PLATELET COUNT 242 K/UL (150-450); RED BLOOD COUNT 4.02 M/UL (4.20-5.40); RED CELL DISTRIBUTION WIDTH 11.7 % (11.6-14.8); WHITE BLOOD COUNT 15.2 K/UL (4.8-10.8)
[2018-09-20 09:30] LABS: ANION GAP 12 mmol/L (5-15); BLOOD UREA NITROGEN 9 mg/dL (7-18); CALCIUM 8.8 MG/DL (8.5-10.1); CARBON DIOXIDE 22 MMOL/L (21-32); CHLORIDE 106 MMOL/L (98-107); CREATININE 0.8 MG/DL (0.55-1.30); POTASSIUM 3.6 MMOL/L (3.5-5.1); SODIUM 140 MMOL/L (136-145)
--- NOTE | 2018-09-20 13:05 | Pulmonology Progress Note ---
Assessment/Plan Problems: (1) Asthma exacerbation (2) Pneumonia (3) History of systemic lupus erythematosus (SLE) Assessment/Plan improving taper steroids check electrolytes check sputum ID evaluation check cultures. dvt prophylaxis. Subjective Interval Events: less phlegmn Allergies: Coded Allergies: CARBAMAZEPINE (Unverified Allergy, Unknown, 09/25/14) Objective Last 24 Hour Vital Signs Date Time Temp Pulse Resp B/P (MAP) Pulse Ox O2 Delivery O2 Flow Rate FiO2 09/20/18 12:00 98.6 62 20 173/102 (125) 100 09/20/18 10:15 168/85 09/20/18 08:00 98.3 65 18 168/85 (112) 100 09/20/18 04:00 97.4 74 18 152/91 (111) 96 09/20/18 02:25 81 18 99 Room Air 21 09/20/18 02:15 79 18 95 Room Air 21 09/20/18 00:00 97.9 62 18 151/80 (103) 97 09/19/18 21:00 Room Air 09/19/18 20:25 86 20 Room Air 21 09/19/18 20:00 98.5 70 21 153/78 (103) 99 09/19/18 16:00 98.7 88 21 150/68 (95) 99 09/19/18 14:00 88 16 99 Room Air 21 09/19/18 13:50 84 16 92 Room Air 21 09/19/18 13:50 21 Intake and Output 09/19/18 09/20/18 19:00 07:00 Intake Total 1292.5 ml 497.5 ml Balance 1292.5 ml 497.5 ml Intake Oral 1100 ml 360 ml IV Total 192.5 ml 137.5 ml # Voids 4 3 General Appearance: cachetic HEENT: normocephalic, atraumatic Respiratory/Chest: chest wall non-tender, lungs clear Cardiovascular: normal peripheral pulses, normal rate Abdomen: normal bowel sounds, no organomegaly Genitourinary: normal external genitalia Extremities: no cyanosis 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: 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, abnormal gait Microbiology Date/Time Source Procedure Growth Status 09/18/18 23:20 Sputum Gram Stain - Final Resulted 09/18/18 23:20 Sputum Sputum Culture Pending Resulted 09/18/18 13:10 Nasal Nares Influenza Types A,B Antigen (CASSANDRA) - Final Complete Laboratory Tests 09/20/18 08:12: White Blood Count 15.2H, Red Blood Count 4.02L, Hemoglobin 10.4L, Hematocrit 31.8L, Mean Corpuscular Volume 79L, Mean Corpuscular Hemoglobin 25.8L, Mean Corpuscular Hemoglobin Concent 32.6, Red Cell Distribution Width 11.7, Platelet Count 242, Mean Platelet Volume 7.0, Neutrophils (%) (Auto) , Lymphocytes (%) ( Auto) , Monocytes (%) (Auto) , Eosinophils (%) (Auto) , Basophils (%) (Auto) , Differential Total Cells Counted 100, Neutrophils % (Manual) 86H, Lymphocytes % (Manual) 8L, Monocytes % (Manual) 3, Eosinophils % (Manual) 0, Basophils % ( Manual) 0, Band Neutrophils 3, Platelet Estimate Adequate, Platelet Morphology , Giant Platelets Occasional, Hypochromasia 1+, Sodium Level 140, Potassium Level 3.6, Chloride Level 106, Carbon Dioxide Level 22, Anion Gap 12, Blood Urea Nitrogen 9, Creatinine 0.8, Estimat Glomerular Filtration Rate > 60, Glucose Level 137H, Calcium Level 8.8 Current Medications Medications (Trade) Dose Ordered Sig/Aileen Route PRN Reason Start Time Stop Time Status Last Admin Dose Admin Acetaminophen (Tylenol) 650 mg Q6H PRN ORAL Mild Pain/Temp > 100.5 09/18/18 21:15 10/18/18 21:14 Albuterol/ Ipratropium (Albuterol/ Ipratropium) 3 ml Q4H PRN HHN dyspnea 09/18/18 21:15 09/23/18 21:14 09/20/18 02:14 Clonidine HCl (Catapres Tab) 0.1 mg Q4H PRN ORAL For High Blood Pressure 09/20/18 10:00 10/20/18 09:59 09/20/18 10:15 Dextrose (Dextrose 50%) 25 ml Q30M PRN IV Hypoglycemia 09/18/18 21:15 10/18/18 21:14 Dextrose (Dextrose 50%) 50 ml Q30M PRN IV Hypoglycemia 09/18/18 21:15 10/18/18 21:14 Heparin Sodium (Porcine) (Heparin 5000 units/ml) 5,000 units EVERY 12 HOURS SUBQ 09/18/18 21:00 10/18/18 20:59 Lorazepam (Ativan 2mg/ml 1ml) 0.5 mg Q4H PRN IV For Anxiety 09/18/18 21:15 09/25/18 21:14 Methylprednisolone Sodium Succinate (Solu-MEDROL) 60 mg EVERY 6 HOURS IV 09/19/18 00:00 10/19/18 00:00 09/20/18 12:03 Morphine Sulfate (Morphine Sulfate) 2 mg Q4H PRN IVP severe pain 7-09/18/18 21:15 09/25/18 21:14 09/20/18 12:07 Nitroglycerin (Ntg) 0.4 mg Q5M X 3 DOSES PRN SL Prn Chest Pain 09/18/18 21:15 10/18/18 21:14 Ondansetron HCl (Zofran) 4 mg Q6H PRN IVP Nausea & Vomiting 09/18/18 21:15 10/18/18 21:14 Piperacillin Sod/ Tazobactam Sod 3.375 gm/Dextrose 110 ml @ 27.5 mls/hr EVERY 8 HOURS IVPB 09/18/18 22:00 09/25/18 21:59 09/20/18 05:25 Promethazine HCl/ Codeine (Phenergan with Codeine) 5 ml Q6H PRN ORAL cough 09/18/18 21:15 10/18/18 21:14 09/19/18 21:21 Temazepam (Restoril) 15 mg HSPRN PRN ORAL Insomnia 09/18/18 21:15 09/25/18 21:14 09/19/18 21:21 Theophylline (Bennett-Dur) 100 mg EVERY 12 HOURS ORAL 09/19/18 21:00 10/19/18 20:59 09/20/18 08:58 Kadeem Lainez MD Sep 20, 2018 13:05
[2018-09-20] MEDS: Promethazine/Codeine 5ml UD ORAL PRN (21:55)
--- NOTE | 2018-09-20 23:00 | Internal Med Progress Note ---
Subjective Physician Name Jason Gonzalez Attending Physician Jason Gonzalez MD Current Medications Medications (Trade) Dose Ordered Sig/Aileen Route PRN Reason Start Time Stop Time Status Last Admin Dose Admin Acetaminophen (Tylenol) 650 mg Q6H PRN ORAL Mild Pain/Temp > 100.5 09/18/18 21:15 10/18/18 21:14 Albuterol/ Ipratropium (Albuterol/ Ipratropium) 3 ml Q4H PRN HHN dyspnea 09/18/18 21:15 09/23/18 21:14 09/20/18 13:22 Clonidine HCl (Catapres Tab) 0.1 mg Q4H PRN ORAL For High Blood Pressure 09/20/18 10:00 10/20/18 09:59 09/20/18 10:15 Dextrose (Dextrose 50%) 25 ml Q30M PRN IV Hypoglycemia 09/18/18 21:15 10/18/18 21:14 Dextrose (Dextrose 50%) 50 ml Q30M PRN IV Hypoglycemia 09/18/18 21:15 10/18/18 21:14 Heparin Sodium (Porcine) (Heparin 5000 units/ml) 5,000 units EVERY 12 HOURS SUBQ 09/18/18 21:00 10/18/18 20:59 Lorazepam (Ativan 2mg/ml 1ml) 0.5 mg Q4H PRN IV For Anxiety 09/18/18 21:15 09/25/18 21:14 Methylprednisolone Sodium Succinate (Solu-MEDROL) 60 mg DAILY IV 09/21/18 09:00 10/19/18 00:00 Morphine Sulfate (Morphine Sulfate) 2 mg Q4H PRN IVP severe pain 7-10 09/18/18 21:15 09/25/18 21:14 09/20/18 19:57 Nitroglycerin (Ntg) 0.4 mg Q5M X 3 DOSES PRN SL Prn Chest Pain 09/18/18 21:15 10/18/18 21:14 Ondansetron HCl (Zofran) 4 mg Q6H PRN IVP Nausea & Vomiting 09/18/18 21:15 10/18/18 21:14 Piperacillin Sod/ Tazobactam Sod 3.375 gm/Dextrose 110 ml @ 27.5 mls/hr EVERY 8 HOURS IVPB 09/18/18 22:00 09/25/18 21:59 09/20/18 21:55 Promethazine HCl/ Codeine (Phenergan with Codeine) 5 ml Q6H PRN ORAL cough 09/18/18 21:15 10/18/18 21:14 09/20/18 21:55 Temazepam (Restoril) 15 mg HSPRN PRN ORAL Insomnia 09/18/18 21:15 09/25/18 21:14 09/20/18 21:55 Theophylline (Bennett-Dur) 100 mg EVERY 12 HOURS ORAL 09/19/18 21:00 10/19/18 20:59 09/20/18 21:55 Allergies: Coded Allergies: CARBAMAZEPINE (Unverified Allergy, Unknown, 09/25/14) Subjective awake, alert, responsive, elevated BP, C/O WATTS, less SOB Objective Last Vital Signs Date Time Temp Pulse Resp B/P (MAP) Pulse Ox O2 Delivery O2 Flow Rate FiO2 09/20/18 21:00 Room Air 09/20/18 20:34 68 18 21 09/20/18 20:00 97.6 146/79 (101) 98 Laboratory Tests Test 09/20/18 08:12 White Blood Count 15.2 K/UL (4.8-10.8) H Red Blood Count 4.02 M/UL (4.20-5.40) L Hemoglobin 10.4 G/DL (12.0-16.0) L Hematocrit 31.8 % (37.0-47.0) L Mean Corpuscular Volume 79 FL (80-99) L Mean Corpuscular Hemoglobin 25.8 PG (27.0-31.0) L Mean Corpuscular Hemoglobin Concent 32.6 G/DL (32.0-36.0) Red Cell Distribution Width 11.7 % (11.6-14.8) Platelet Count 242 K/UL (150-450) Mean Platelet Volume 7.0 FL (6.5-10.1) Neutrophils (%) (Auto) % (45.0-75.0) Lymphocytes (%) (Auto) % (20.0-45.0) Monocytes (%) (Auto) % (1.0-10.0) Eosinophils (%) (Auto) % (0.0-3.0) Basophils (%) (Auto) % (0.0-2.0) Differential Total Cells Counted 100 Neutrophils % (Manual) 86 % (45-75) H Lymphocytes % (Manual) 8 % (20-45) L Monocytes % (Manual) 3 % (1-10) Eosinophils % (Manual) 0 % (0-3) Basophils % (Manual) 0 % (0-2) Band Neutrophils 3 % (0-8) Platelet Estimate Adequate Platelet Morphology Giant Platelets Occasional Hypochromasia 1+ Sodium Level 140 MMOL/L (136-145) Potassium Level 3.6 MMOL/L (3.5-5.1) Chloride Level 106 MMOL/L (98-107) Carbon Dioxide Level 22 MMOL/L (21-32) Anion Gap 12 mmol/L (5-15) Blood Urea Nitrogen 9 mg/dL (7-18) Creatinine 0.8 MG/DL (0.55-1.30) Estimat Glomerular Filtration Rate > 60 mL/min (>60) Glucose Level 137 MG/DL (74-106) H Calcium Level 8.8 MG/DL (8.5-10.1) Microbiology Date/Time Source Procedure Growth Status 09/18/18 23:20 Sputum Gram Stain - Final Resulted 09/18/18 23:20 Sputum Sputum Culture Pending Resulted 09/18/18 13:10 Nasal Nares Influenza Types A,B Antigen (CASSANDRA) - Final Complete Intake and Output 09/19/18 09/20/18 19:00 07:00 Intake Total 1292.5 ml 497.5 ml Balance 1292.5 ml 497.5 ml Intake Oral 1100 ml 360 ml IV Total 192.5 ml 137.5 ml # Voids 4 3 Objective General: No acute distress, awake and alert HEENT: NCAT, sclera anicteric, PERRL, EOMI. Neck: Supple, no significant jugular venous distention, Lungs: Good inspiratory effort, less Wheeze, No Rales. Heart: Regular rate and rhythm, normal S1/S2, no murmurs Abdomen: soft, nontender, nondistended. Normoactive bowel sounds, Obesity. / Rectal: Refused and deferred. Extremities: No Cyanosis , clubbing or edema. Neuro: A&O x 3, Able to move all extremities Skin: warm, no rashes or lesions Psych: Normal mood and affect Assessment/Plan Assessment/Plan 1. Left lower lobe pneumonia. 2. Shortness of breath. 3. Asthma. 4. Systemic lupus. 5. Multiple sclerosis Plan: Neb Tx Abx: Zosyn Solumedral IV Heparin SQ Jason Gonzalez MD Sep 20, 2018 23:00
[2018-09-21] VITALS: BP 149/92
[2018-09-21 04:00] VITALS: BP 152/90
[2018-09-21] MEDS: Piperacillin/Tazobactam 3.375 GM in D5W 110 ML IVPB SCH (05:14)
[2018-09-21] MEDS: Promethazine/Codeine 5ml UD ORAL PRN (05:26)
[2018-09-21] MEDS: Albuterol/Ipratropium 3ml neb HHN PRN (05:40)
[2018-09-21 06:47] LABS: BASOPHILS % (AUTO) 0.5 % (0.0-2.0); LYMPHOCYTES % (AUTO) 12.7 % (20.0-45.0); MEAN CORPUSCULAR VOLUME 80 FL (80-99); MONOCYTES % (AUTO) 3.1 % (1.0-10.0); NEUTROPHILS % (AUTO) 83.8 % (45.0-75.0); PLATELET COUNT 280 K/UL (150-450); RED BLOOD COUNT 3.86 M/UL (4.20-5.40); RED CELL DISTRIBUTION WIDTH 11.8 % (11.6-14.8); WHITE BLOOD COUNT 14.9 K/UL (4.8-10.8)
[2018-09-21 07:06] LABS: ALANINE AMINOTRANSFERASE 37 U/L (12-78); ALBUMIN 3.1 G/DL (3.4-5.0); ALBUMIN/GLOBULIN RATIO 0.9 (1.0-2.7); ALKALINE PHOSPHATASE 89 U/L (46-116); ANION GAP 11 mmol/L (5-15); ASPARTATE AMINO TRANSFERASE 26 U/L (15-37); BILIRUBIN,TOTAL 0.3 MG/DL (0.2-1.0); BLOOD UREA NITROGEN 16 mg/dL (7-18); CALCIUM 8.8 MG/DL (8.5-10.1); CARBON DIOXIDE 24 MMOL/L (21-32); CHLORIDE 106 MMOL/L (98-107); CREATININE 0.9 MG/DL (0.55-1.30); PHOSPHORUS 3.8 MG/DL (2.5-4.9); SODIUM 140 MMOL/L (136-145)
[2018-09-21 08:00] VITALS: BP 171/94
[2018-09-21] MEDS ORDERED: Solu-MEDROL 125mg Inj IV SCH (09:00)
[2018-09-21] MEDS: Heparin 5000 units/ml inj SUBQ SCH (09:00)
[2018-09-21] MEDS: Morphine Sulfate 2mg/ml Inj IVP PRN (09:40)
[2018-09-21] MEDS: Theophylline ER 100mg ORAL SCH (09:41)
[2018-09-21 12:00] VITALS: BP 155/90
--- NOTE | 2018-09-21 12:06 | Consultation ---
History of Present Illness General Date patient seen: Sep 21, 2018 Chief Complaint: Flu Like Symptoms Present Illness HPI 43 y/o F with hx of SLE (inactive for years) on Plaquenil, Migraine Headaches, MS, Asthma, s/p b/l tubal ligation presents to ED on 09/18 with worsening productive cough, congestion, body aches, SOB, f/c for 1 week. Fever up to 102. Patient refers symptoms began on 09/10. Exposed to grandchild who have an URI. CXR showed faint density retrocardiac area of LLL. Denied CP, WATTS, neck pain, N/V, abd pain, dysuria, hematuria, CP Allergies: Coded Allergies: CARBAMAZEPINE (Unverified Allergy, Unknown, 09/25/14) Medication History Scheduled Acyclovir* (Acyclovir*), 400 MG ORAL DAILY, (Reported) Cetirizine Hcl* (Zyrtec*), 10 MG ORAL DAILY Diclofenac Sod* (Voltaren*), 75 MG ORAL DAILY, (Reported) [plaquenil], 400 MG ORAL DAILY, (Reported) Scheduled PRN Albuterol Sulfate* (Albuterol Sulfate Mdi*), 2 PUFF INH Q4H PRN for cough/ wheezing Ibuprofen (Ibuprofen), 800 MG PO Q8HR PRN for FEVER, (Reported) Discontinued Medications Guaifenesin/Codeine Phos* (Robitussin Ac*), 5 ML ORAL Q6H PRN for For Cough Discontinued Reason: Pt stopped taking med Patient History Healthcare decision maker N Resuscitation status Advanced Directive on File Patient History Narrative Pmhx: as above Shx: Denies: smoking, alcohol use, drug use Fhx: non contributory Review of Systems All Other Systems: negative except mentioned in HPI Physical Exam Physical Exam Narrative GENERAL: The patient is a well-developed and well-nourished slightly obese female, in no apparent distress. HEENT: Eyes, pupils equal and responsive to light and accommodation. Extraocular movements are intact. NECK: Supple without lymphadenopathy. CHEST: Lungs are with diffuse wheezes bilaterally. There are no crackles heard. There are decreased breath sounds in the left lower lobe. CARDIOVASCULAR: Regular rhythm and rate. S1, S2 are normal without murmurs, rubs, or gallops. ABDOMEN: Soft, nontender, and nondistended with positive bowel sounds. No evidence of hepatosplenomegaly. Currently, no rebound or guarding noted. EXTREMITIES: Negative for clubbing, cyanosis, or edema. Last 24 Hour Vital Signs Date Time Temp Pulse Resp B/P (MAP) Pulse Ox O2 Delivery O2 Flow Rate FiO2 09/21/18 10:10 97.7 09/21/18 09:40 171/94 09/21/18 09:00 Room Air 09/21/18 08:00 97.7 60 19 171/94 (119) 100 09/21/18 06:58 64 18 Room Air 21 09/21/18 05:51 62 20 99 Room Air 21 09/21/18 05:40 95 20 96 Room Air 21 09/21/18 04:00 97.5 60 17 152/90 (110) 97 09/21/18 00:00 97.6 63 18 149/92 (111) 100 09/20/18 21:00 Room Air 09/20/18 20:34 68 18 Room Air 21 09/20/18 20:00 97.6 61 18 146/79 (101) 98 09/20/18 16:00 98.4 63 19 154/90 (111) 96 09/20/18 13:31 80 20 99 Room Air 21 09/20/18 13:23 62 20 Room Air 21 09/20/18 13:22 62 20 98 Room Air 21 09/20/18 13:00 98.6 62 20 160/97 (118) 100 09/20/18 12:00 98.6 62 20 173/102 (125) 100 Intake and Output 09/20/18 09/21/18 19:00 07:00 Intake Total 645.0 ml 437.5 ml Balance 645.0 ml 437.5 ml Intake Oral 480 ml 300 ml IV Total 165.0 ml 137.5 ml # Voids 4 4 # Bowel Movements 1 Laboratory Tests Test 09/21/18 05:10 White Blood Count 14.9 K/UL (4.8-10.8) H Red Blood Count 3.86 M/UL (4.20-5.40) L Hemoglobin 10.0 G/DL (12.0-16.0) L Hematocrit 31.0 % (37.0-47.0) L Mean Corpuscular Volume 80 FL (80-99) Mean Corpuscular Hemoglobin 25.9 PG (27.0-31.0) L Mean Corpuscular Hemoglobin Concent 32.3 G/DL (32.0-36.0) Red Cell Distribution Width 11.8 % (11.6-14.8) Platelet Count 280 K/UL (150-450) Mean Platelet Volume 7.5 FL (6.5-10.1) Neutrophils (%) (Auto) 83.8 % (45.0-75.0) H Lymphocytes (%) (Auto) 12.7 % (20.0-45.0) L Monocytes (%) (Auto) 3.1 % (1.0-10.0) Eosinophils (%) (Auto) 0.0 % (0.0-3.0) Basophils (%) (Auto) 0.5 % (0.0-2.0) Erythrocyte Sedimentation Rate 57 MM/HR (0-20) H Sodium Level 140 MMOL/L (136-145) Potassium Level 4.0 MMOL/L (3.5-5.1) Chloride Level 106 MMOL/L (98-107) Carbon Dioxide Level 24 MMOL/L (21-32) Anion Gap 11 mmol/L (5-15) Blood Urea Nitrogen 16 mg/dL (7-18) Creatinine 0.9 MG/DL (0.55-1.30) Estimat Glomerular Filtration Rate > 60 mL/min (>60) Glucose Level 103 MG/DL (74-106) Calcium Level 8.8 MG/DL (8.5-10.1) Phosphorus Level 3.8 MG/DL (2.5-4.9) Magnesium Level 2.1 MG/DL (1.8-2.4) Total Bilirubin 0.3 MG/DL (0.2-1.0) Aspartate Amino Transf (AST/SGOT) 26 U/L (15-37) Alanine Aminotransferase (ALT/SGPT) 37 U/L (12-78) Alkaline Phosphatase 89 U/L (46-116) C-Reactive Protein, Quantitative 3.9 mg/dL (0.00-0.90) H Total Protein 6.4 G/DL (6.4-8.2) Albumin 3.1 G/DL (3.4-5.0) L Globulin 3.3 g/dL Albumin/Globulin Ratio 0.9 (1.0-2.7) L Height (Feet): 5 Height (Inches): 2.00 Weight (Pounds): 175 Medications Current Medications Medications (Trade) Dose Ordered Sig/Aileen Route PRN Reason Start Time Stop Time Status Last Admin Dose Admin Acetaminophen (Tylenol) 650 mg Q6H PRN ORAL Mild Pain/Temp > 100.5 09/18/18 21:15 10/18/18 21:14 Albuterol/ Ipratropium (Albuterol/ Ipratropium) 3 ml Q4H PRN HHN dyspnea 09/18/18 21:15 09/23/18 21:14 09/21/18 05:40 Clonidine HCl (Catapres Tab) 0.1 mg Q4H PRN ORAL For High Blood Pressure 09/20/18 10:00 10/20/18 09:59 09/21/18 09:40 Dextrose (Dextrose 50%) 25 ml Q30M PRN IV Hypoglycemia 09/18/18 21:15 10/18/18 21:14 Dextrose (Dextrose 50%) 50 ml Q30M PRN IV Hypoglycemia 09/18/18 21:15 10/18/18 21:14 Heparin Sodium (Porcine) (Heparin 5000 units/ml) 5,000 units EVERY 12 HOURS SUBQ 09/18/18 21:00 10/18/18 20:59 Lorazepam (Ativan 2mg/ml 1ml) 0.5 mg Q4H PRN IV For Anxiety 09/18/18 21:15 09/25/18 21:14 Methylprednisolone Sodium Succinate (Solu-MEDROL) 60 mg DAILY IV 09/21/18 09:00 10/19/18 00:00 09/21/18 09:41 Morphine Sulfate (Morphine Sulfate) 2 mg Q4H PRN IVP severe pain 7-10 09/18/18 21:15 09/25/18 21:14 09/21/18 09:40 Nitroglycerin (Ntg) 0.4 mg Q5M X 3 DOSES PRN SL Prn Chest Pain 09/18/18 21:15 10/18/18 21:14 Ondansetron HCl (Zofran) 4 mg Q6H PRN IVP Nausea & Vomiting 09/18/18 21:15 10/18/18 21:14 09/20/18 23:28 Piperacillin Sod/ Tazobactam Sod 3.375 gm/Dextrose 110 ml @ 27.5 mls/hr EVERY 8 HOURS IVPB 09/18/18 22:00 09/25/18 21:59 09/21/18 05:14 Promethazine HCl/ Codeine (Phenergan with Codeine) 5 ml Q6H PRN ORAL cough 09/18/18 21:15 10/18/18 21:14 09/21/18 05:26 Temazepam (Restoril) 15 mg HSPRN PRN ORAL Insomnia 09/18/18 21:15 09/25/18 21:14 09/20/18 21:55 Theophylline (Bennett-Dur) 100 mg EVERY 12 HOURS ORAL 09/19/18 21:00 10/19/18 20:59 09/21/18 09:41 Assessment/Plan Assessment/Plan Abx: Zosyn 09/18- Assessment: CAP, likely complication of viral URI -influenz sc neg -CXR: There is a faint density in the retrocardiac aspect of the left lower lobe. Pneumonia not excluded. -sp cx normal margaret Fever, improving Leukocytosis (on high dose steroids) SLE (inactive for years) on Plaquenil Migraine Headaches MS Asthma s/p b/l tubal ligation Plan: -Switch Zosyn #4/7 to PO Levaquin for PNA -f/u cx -Monitor CBC/CMP, temperatures -aspiration precautions Thank you for this consultation. Will continue to follow along with you. Discussed with Jany Herrera M.D. Sep 21, 2018 12:06
--- NOTE | 2018-09-21 15:11 | Internal Med Progress Note ---
Subjective Physician Name Jason Gonzalez Attending Physician Jason Gonzalez MD Current Medications Medications (Trade) Dose Ordered Sig/Aileen Route PRN Reason Start Time Stop Time Status Last Admin Dose Admin Acetaminophen (Tylenol) 650 mg Q6H PRN ORAL Mild Pain/Temp > 100.5 09/18/18 21:15 10/18/18 21:14 Albuterol/ Ipratropium (Albuterol/ Ipratropium) 3 ml Q4H PRN HHN dyspnea 09/18/18 21:15 09/23/18 21:14 09/21/18 05:40 Clonidine HCl (Catapres Tab) 0.1 mg Q4H PRN ORAL For High Blood Pressure 09/20/18 10:00 10/20/18 09:59 09/21/18 09:40 Dextrose (Dextrose 50%) 25 ml Q30M PRN IV Hypoglycemia 09/18/18 21:15 10/18/18 21:14 Dextrose (Dextrose 50%) 50 ml Q30M PRN IV Hypoglycemia 09/18/18 21:15 10/18/18 21:14 Heparin Sodium (Porcine) (Heparin 5000 units/ml) 5,000 units EVERY 12 HOURS SUBQ 09/18/18 21:00 10/18/18 20:59 Levofloxacin (Levaquin) 750 mg DAILY ORAL 09/21/18 12:09 09/28/18 12:08 09/21/18 12:35 Lorazepam (Ativan 2mg/ml 1ml) 0.5 mg Q4H PRN IV For Anxiety 09/18/18 21:15 09/25/18 21:14 Methylprednisolone Sodium Succinate (Solu-MEDROL) 60 mg DAILY IV 09/21/18 09:00 10/19/18 00:00 09/21/18 09:41 Morphine Sulfate (Morphine Sulfate) 2 mg Q4H PRN IVP severe pain 7-10 09/18/18 21:15 09/25/18 21:14 09/21/18 09:40 Nitroglycerin (Ntg) 0.4 mg Q5M X 3 DOSES PRN SL Prn Chest Pain 09/18/18 21:15 10/18/18 21:14 Ondansetron HCl (Zofran) 4 mg Q6H PRN IVP Nausea & Vomiting 09/18/18 21:15 10/18/18 21:14 12/13/18 23:28 Promethazine HCl/ Codeine (Phenergan with Codeine) 5 ml Q6H PRN ORAL cough 09/18/18 21:15 10/18/18 21:14 09/21/18 05:26 Temazepam (Restoril) 15 mg HSPRN PRN ORAL Insomnia 09/18/18 21:15 09/25/18 21:14 09/20/18 21:55 Theophylline (Bennett-Dur) 100 mg EVERY 12 HOURS ORAL 09/19/18 21:00 10/19/18 20:59 09/21/18 09:41 Allergies: Coded Allergies: CARBAMAZEPINE (Unverified Allergy, Unknown, 09/25/14) Subjective awake, alert, responsive, elevated BP, C/O less WATTS, less SOB Objective Last Vital Signs Date Time Temp Pulse Resp B/P (MAP) Pulse Ox O2 Delivery O2 Flow Rate FiO2 09/21/18 12:00 97.8 61 20 155/90 (111) 94 09/21/18 09:00 Room Air 09/21/18 06:58 21 Laboratory Tests Test 09/21/18 05:10 White Blood Count 14.9 K/UL (4.8-10.8) H Red Blood Count 3.86 M/UL (4.20-5.40) L Hemoglobin 10.0 G/DL (12.0-16.0) L Hematocrit 31.0 % (37.0-47.0) L Mean Corpuscular Volume 80 FL (80-99) Mean Corpuscular Hemoglobin 25.9 PG (27.0-31.0) L Mean Corpuscular Hemoglobin Concent 32.3 G/DL (32.0-36.0) Red Cell Distribution Width 11.8 % (11.6-14.8) Platelet Count 280 K/UL (150-450) Mean Platelet Volume 7.5 FL (6.5-10.1) Neutrophils (%) (Auto) 83.8 % (45.0-75.0) H Lymphocytes (%) (Auto) 12.7 % (20.0-45.0) L Monocytes (%) (Auto) 3.1 % (1.0-10.0) Eosinophils (%) (Auto) 0.0 % (0.0-3.0) Basophils (%) (Auto) 0.5 % (0.0-2.0) Erythrocyte Sedimentation Rate 57 MM/HR (0-20) H Sodium Level 140 MMOL/L (136-145) Potassium Level 4.0 MMOL/L (3.5-5.1) Chloride Level 106 MMOL/L (98-107) Carbon Dioxide Level 24 MMOL/L (21-32) Anion Gap 11 mmol/L (5-15) Blood Urea Nitrogen 16 mg/dL (7-18) Creatinine 0.9 MG/DL (0.55-1.30) Estimat Glomerular Filtration Rate > 60 mL/min (>60) Glucose Level 103 MG/DL (74-106) Calcium Level 8.8 MG/DL (8.5-10.1) Phosphorus Level 3.8 MG/DL (2.5-4.9) Magnesium Level 2.1 MG/DL (1.8-2.4) Total Bilirubin 0.3 MG/DL (0.2-1.0) Aspartate Amino Transf (AST/SGOT) 26 U/L (15-37) Alanine Aminotransferase (ALT/SGPT) 37 U/L (12-78) Alkaline Phosphatase 89 U/L (46-116) C-Reactive Protein, Quantitative 3.9 mg/dL (0.00-0.90) H Total Protein 6.4 G/DL (6.4-8.2) Albumin 3.1 G/DL (3.4-5.0) L Globulin 3.3 g/dL Albumin/Globulin Ratio 0.9 (1.0-2.7) L Microbiology Date/Time Source Procedure Growth Status 09/18/18 23:20 Sputum Gram Stain - Final Complete 09/18/18 23:20 Sputum Sputum Culture - Final NORMAL UPPER RESPIRATORY BAY AT 48 ... Complete Intake and Output 09/20/18 09/21/18 19:00 07:00 Intake Total 645.0 ml 437.5 ml Balance 645.0 ml 437.5 ml Intake Oral 480 ml 300 ml IV Total 165.0 ml 137.5 ml # Voids 4 4 # Bowel Movements 1 Objective General: No acute distress, awake and alert HEENT: NCAT, sclera anicteric, PERRL, EOMI. Neck: Supple, no significant jugular venous distention, Lungs: Good inspiratory effort, less Wheeze, No Rales. Heart: Regular rate and rhythm, normal S1/S2, no murmurs Abdomen: soft, nontender, nondistended. Normoactive bowel sounds, Obesity. / Rectal: Refused and deferred. Extremities: No Cyanosis , clubbing or edema. Neuro: A&O x 3, Able to move all extremities Skin: warm, no rashes or lesions Psych: Normal mood and affect Assessment/Plan Assessment/Plan 1. Left lower lobe pneumonia. 2. Shortness of breath. 3. Asthma. 4. Systemic lupus. 5. Multiple sclerosis Plan: Neb Tx Abx: Start Levaquin , DC Zosyn Solumedral IV Heparin SQ DC planning Start Clonidine PRN, Avapro 75 mg Jason Gonzalez MD Sep 21, 2018 15:11
[2018-09-21] MEDS ORDERED: LEVOFLOXACIN500 MG ORAL (15:32)
[2018-09-21] MEDS ORDERED: PREDNISONE10 M2 PO (15:32)
--- NOTE | 2018-09-21 15:33 | Pulmonology Progress Note ---
Assessment/Plan Problems: (1) Asthma exacerbation (2) Pneumonia (3) History of systemic lupus erythematosus (SLE) Assessment/Plan improving taper steroids check electrolytes check sputum ID evaluation appreciated check cultures. dvt prophylaxis. dc home with oral abx and steroids Subjective ROS Limited/Unobtainable: No Constitutional: Reports: no symptoms HEENT: Repors: no symptoms Allergies: Coded Allergies: CARBAMAZEPINE (Unverified Allergy, Unknown, 09/25/14) Objective Last 24 Hour Vital Signs Date Time Temp Pulse Resp B/P (MAP) Pulse Ox O2 Delivery O2 Flow Rate FiO2 09/21/18 15:30 154/89 09/21/18 12:00 97.8 61 20 155/90 (111) 94 09/21/18 10:10 97.7 09/21/18 09:40 171/94 09/21/18 09:00 Room Air 09/21/18 08:00 97.7 60 19 171/94 (119) 100 09/21/18 06:58 64 18 Room Air 21 09/21/18 05:51 62 20 99 Room Air 21 09/21/18 05:40 95 20 96 Room Air 21 09/21/18 04:00 97.5 60 17 152/90 (110) 97 09/21/18 00:00 97.6 63 18 149/92 (111) 100 09/20/18 21:00 Room Air 09/20/18 20:34 68 18 Room Air 21 09/20/18 20:00 97.6 61 18 146/79 (101) 98 09/20/18 16:00 98.4 63 19 154/90 (111) 96 Intake and Output 09/20/18 09/21/18 19:00 07:00 Intake Total 645.0 ml 437.5 ml Balance 645.0 ml 437.5 ml Intake Oral 480 ml 300 ml IV Total 165.0 ml 137.5 ml # Voids 4 4 # Bowel Movements 1 General Appearance: WD/WN HEENT: normocephalic Respiratory/Chest: chest wall non-tender, lungs clear Breasts: no masses Cardiovascular: normal rate Abdomen: normal bowel sounds, soft, non tender Extremities: no cyanosis Skin: no lesions Microbiology Date/Time Source Procedure Growth Status 09/18/18 23:20 Sputum Gram Stain - Final Complete 09/18/18 23:20 Sputum Sputum Culture - Final NORMAL UPPER RESPIRATORY BAY AT 48 ... Complete Laboratory Tests 09/21/18 05:10: White Blood Count 14.9H, Red Blood Count 3.86L, Hemoglobin 10.0L, Hematocrit 31.0L, Mean Corpuscular Volume 80, Mean Corpuscular Hemoglobin 25.9L, Mean Corpuscular Hemoglobin Concent 32.3, Red Cell Distribution Width 11.8, Platelet Count 280, Mean Platelet Volume 7.5, Neutrophils (%) (Auto) 83.8H, Lymphocytes ( %) (Auto) 12.7L, Monocytes (%) (Auto) 3.1, Eosinophils (%) (Auto) 0.0, Basophils (%) (Auto) 0.5, Erythrocyte Sedimentation Rate 57H, Sodium Level 140, Potassium Level 4.0, Chloride Level 106, Carbon Dioxide Level 24, Anion Gap 11, Blood Urea Nitrogen 16, Creatinine 0.9, Estimat Glomerular Filtration Rate > 60 , Glucose Level 103, Calcium Level 8.8, Phosphorus Level 3.8, Magnesium Level 2.1, Total Bilirubin 0.3, Aspartate Amino Transf (AST/SGOT) 26, Alanine Aminotransferase (ALT/SGPT) 37, Alkaline Phosphatase 89, C-Reactive Protein, Quantitative 3.9H, Total Protein 6.4, Albumin 3.1L, Globulin 3.3, Albumin/ Globulin Ratio 0.9L Current Medications Medications (Trade) Dose Ordered Sig/Aileen Route PRN Reason Start Time Stop Time Status Last Admin Dose Admin Acetaminophen (Tylenol) 650 mg Q6H PRN ORAL Mild Pain/Temp > 100.5 09/18/18 21:15 10/18/18 21:14 Albuterol/ Ipratropium (Albuterol/ Ipratropium) 3 ml Q4H PRN HHN dyspnea 09/18/18 21:15 09/23/18 21:14 09/21/18 05:40 Clonidine HCl (Catapres Tab) 0.1 mg Q4H PRN ORAL SBP > 160 09/21/18 15:15 10/21/18 15:14 Dextrose (Dextrose 50%) 25 ml Q30M PRN IV Hypoglycemia 09/18/18 21:15 10/18/18 21:14 Dextrose (Dextrose 50%) 50 ml Q30M PRN IV Hypoglycemia 09/18/18 21:15 10/18/18 21:14 Heparin Sodium (Porcine) (Heparin 5000 units/ml) 5,000 units EVERY 12 HOURS SUBQ 09/18/18 21:00 10/18/18 20:59 Irbesartan (Avapro) 75 mg DAILY ORAL 09/21/18 15:15 10/21/18 15:14 09/21/18 15:30 Levofloxacin (Levaquin) 750 mg DAILY ORAL 09/21/18 12:09 09/28/18 12:08 09/21/18 12:35 Nitroglycerin (Ntg) 0.4 mg Q5M X 3 DOSES PRN SL Prn Chest Pain 09/18/18 21:15 10/18/18 21:14 Promethazine HCl/ Codeine (Phenergan with Codeine) 5 ml Q6H PRN ORAL cough 09/18/18 21:15 10/18/18 21:14 09/21/18 05:26 Temazepam (Restoril) 15 mg HSPRN PRN ORAL Insomnia 09/18/18 21:15 09/25/18 21:14 09/20/18 21:55 Kadeem Lainez MD Sep 21, 2018 15:33
[2018-09-21 16:00] VITALS: BP 154/89
--- NOTE | 2018-09-24 08:42 | Discharge Summary ---
Discharge Summary Discharge Summary _ DATE OF ADMISSION: 09/18/2018 DATE OF DISCHARGE: 09/21/2018 DISCHARGED BY: Dr. Gonzalez REASON FOR ADMISSION: 43 years old female with past medical history of lupus, MS, asthma , migraine headaches, presented to emergency department complaining of progressively worsening cough ,congestion and shortness of breath. Patient reported body aches ,fever and chills. Cough productive , but no hemoptysis . No nausea, no vomiting,no abdominal pain . No dysuria or hematuria . No chest pain . Patient did not receive influenza vaccine this year. Upon evaluation blood pressure was slightly elevated 148/88. Pulse oximetry was stable on room air. No fever. Chest x-ray revealed density in the retrocardiac aspect of the left lower lobe, possible pneumonia. Laboratory workup revealed no leukocytosis ,hemoglobin 10.7, hematocrit 33.2. Electrolytes and renal parameters were stable. Patient admitted with diagnoses of pneumonia, asthma exacerbation. CONSULTANTS: pulmonary Dr. Fatou CR specialist Dr. Chavarria [facility] COURSE: Patient admitted to medical surgical floor . ID and pulmonology consults were requested. Supplemental oxygen provided as needed to keep pulse oximetry above 90%. Pulmonary toilet with nebulizing therapy with bronchodilators provided around the clock and as needed. Patient was started on intravenous steroids with gradual tapering down. Patient was started on empiric antibiotic. Sputum culture was negative. Influenza screen test was negative. Trial of theophylline started Antitussive provided as needed . Patient noted to have leukocytosis , likely reactive secondary to high dose of steroids. No fevers. Blood pressure was managed with ARB. DVT prophylaxis provided. Supportive care provided. Apparently systemic lupus was inactive for years. Patient on Plaquenil at home , Patient clinically stabilized and was ready for discharge home on oral antibiotic to complete the course and Medrol Dosepak. FINAL DIAGNOSES: Community-acquired pneumonia left lower lobe, likely complication of viral upper respiratory infection Asthma exacerbation Systemic lupus erythematosus Multiple sclerosis Hypertension DISCHARGE MEDICATIONS: See Medication Reconciliation list. DISCHARGE INSTRUCTIONS: Patient was discharged home . Follow up with primary care provider in one week. I have been assigned to dictate discharge summary for this account. I was not involved in the patient's management. Viktoriya Rios NP Sep 24, 2018 08:42
== END 2018-09-21 18:04 | disposition home or self-care (01) | DRG 139 ==
LOC: EMR 14:35 → 4E 17:45 → EDBEDREQ 20:00 → EMR 20:41
DX: J18.9 Pneumonia, unspecified organism (principal); M32.9 Systemic lupus erythematosus, unspecified; G35 Multiple sclerosis; J45.901 Unspecified asthma with (acute) exacerbation; J06.9 Acute upper respiratory infection, unspecified; I10 Essential (primary) hypertension; Z88.8 Allergy status to other drugs, medicaments and biological substances
CPT/HCPCS: 36415; 71045; 80048; 80053; 83735; 84100; 85007; 85025; 85651; 86140; 86710; 87070; 87205; 94640; 94664; 96361; 96365; 99285; J2405; J7620

== ENCOUNTER 2018-10-11 14:07 | Inpatient (IN) | payer MEDICAID ==
[~2018-10-11] VITALS: Ht 154.9 cm; Wt 79.4 kg
[~2018-10-11 14:07] MED LIST changes: +DICLOFENAC SODI75 MG ORAL; +IBUPROFEN800 M1 PO; +LEVOFLOXACIN500 MG ORAL; +PREDNISONE10 M2 PO; +plaquenil ORAL
[2018-10-11 14:30] VITALS: BP 132/72
--- NOTE | 2018-10-11 14:37 | NUR ---
ED Nurse Note: Received pt from [facility].
[2018-10-11] MEDS ORDERED: Solu-MEDROL 125mg Inj IVP ONE (14:45)
[2018-10-11] MEDS ORDERED: Ipratropium 0.02% Inh Soln 2.5ml UD HHN ONE (14:45)
[2018-10-11] MEDS ORDERED: Morphine Sulfate 4mg/ml Inj (IV/IM USE ONLY) IVP ONE (14:45)
[2018-10-11] MEDS: Albuterol ud Inhalation HHN SCH ×3 (15:08→15:59)
[2018-10-11 16:00] VITALS: BP 129/66
--- NOTE | 2018-10-11 16:00 | Emergency Room Report ---
History of Present Illness General Chief Complaint: Upper Respiratory Illness Source: Patient Present Illness HPI Patient presents with fever and cough. She was recently admitted for pneumonia. She is on prednisone for lupus. She also has a history of asthma. Never intubated. Not worse attack, but weak, not eating well. Taking OTC meds for fever. Use of inhaler without help. No h/o blood clots, calf pain, edema. Discharged 09/21 with these diagnoses: Community-acquired pneumonia left lower lobe, likely complication of viral upper respiratory infection Asthma exacerbation Systemic lupus erythematosus Multiple sclerosis Hypertension H/O Lupus on plaquinil, and prednisone H/O multiple sclerosis - in remission. Previously she had numbness and weakness in her left arm that resolved completely. She states veins were used up with treatment of multiple sclerosis. 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 Last Menstrual Period: 09/2018 Now: No Reviewed Nursing Documentation: PMH: Agreed; PSxH: Agreed Nursing Documentation-PMH Past Medical History: No History, Except For Hx Cardiac Problems: No Hx Hypertension: No Hx Pacemaker: No Hx Asthma: Yes - PNA Hx COPD: No Hx Diabetes: No Hx Cancer: No Hx Gastrointestinal Problems: No Hx Dialysis: No Hx Neurological Problems: Yes - Lupus, MS Hx Cerebrovascular Accident: No Hx Seizures: No Review of Systems All Other Systems: negative except mentioned in HPI Physical Exam Vital Signs Date Time Temp Pulse Resp B/P (MAP) Pulse Ox O2 Delivery O2 Flow Rate FiO2 10/11/18 14:09 103.1 135 20 145/78 95 Room Air 10/11/18 15:08 21 Sp02 EP Interpretation: reviewed, abnormal - interpreted as low by me General Appearance: mild distress Eyes: bilateral eye normal inspection, bilateral eye PERRL ENT: moist mucus membranes Neck: supple, no meningismus, other - Thyroid fullness Respiratory: respiratory distress - mild, rales, wheezing, expiration, inspiration Cardiovascular #1: no edema, tachycardia Cardiovascular #2: 2+ radial (R), 2+ femoral (R) Gastrointestinal: non tender, soft, decreased bowel sounds Genitourinary: no CVA tenderness Neurologic: oriented x3, motor strength/tone normal, sensory intact, grossly normal Psychiatric: mood/affect normal Skin: normal color, warm/dry, other - striae Procedures Central Line Central Line : Consent: Verbal Central Line Lumen: triple Maximal Sterile Barrier Tech: yes cap, yes mask, yes sterile gown, yes sterile gloves, yes large sterile sheet, yes hand hygiene, yes chlorhexidine prep Central Line Postion: femoral (R) Anesthesia: Lidocaine cc's of anesthesia: 5 Complications: none Central Line Post Position: sutured, good blood return Attempts: One Patient Tolerated: Well Complications: None Progress CVP performed with ultrasound. EBL = 23 cc (20 for blood) Medical Decision Making Diagnostic Impression: Primary Impression: Pneumonia Qualified Codes: J18.1 - Lobar pneumonia, unspecified organism Additional Impressions: Bronchospasm History of systemic lupus erythematosus (SLE) Volume depletion ER Course Patient presents febrile tachycardic with cough. Differential includes sepsis, pneumonia, pulmonary embolus, UTI amongst others. Evaluation will be with EKG, chest x-ray and labs. Patient will receive IV hydration, Tylenol, solumedrol and breathing treatments. Most likely she will need antibiotics. We will be checking influenza and treat her if her influenza swab is positive. Nurse's unable to start IV. Attempts at external jugular were unsuccessful. The veins were cannulated however due to decreased volume IVs were unsuccessful. A central line was begun. Bloods were drawn at that time. Central venous pressures were low. EKG was sinus tachycardia without strain pattern. Chest x-ray with bilateral infiltrates. White count normal (on immune suppression). Initial lactate is normal. CMP normal. Troponin negative. Patient improving with IV hydration, breathing treatments and antipyretics. Antibiotics are begun.. Patient is admitted to telemetry with a diagnosis of bilateral pneumonia, Dr. Gonzalez. Patient with paroxysms of coughing and wheezing. Repeat Albuterol with improvement. Laboratory Tests Test 10/11/18 14:30 10/11/18 15:50 10/11/18 17:01 10/11/18 17:15 Sodium Level 135 MMOL/L (136-145) L Potassium Level 3.5 MMOL/L (3.5-5.1) Chloride Level 101 MMOL/L (98-107) Carbon Dioxide Level 21 MMOL/L (21-32) Anion Gap 13 mmol/L (5-15) Blood Urea Nitrogen 16 mg/dL (7-18) Creatinine 1.1 MG/DL (0.55-1.30) Estimate Glomerular Filtration Rate > 60 mL/min (>60) Glucose Level 92 MG/DL (74-106) Calcium Level 9.1 MG/DL (8.5-10.1) Total Bilirubin 0.4 MG/DL (0.2-1.0) Aspartate Amino Transferase (AST) 23 U/L (15-37) Alanine Aminotransferase (ALT) 24 U/L (12-78) Alkaline Phosphatase 84 U/L (46-116) Total Creatine Kinase 29 U/L (26-308) Creatine Kinase MB < 0.5 NG/ML (0.0-3.6) Creatine Kinase MB Relative Index 1.7 Total Protein 6.2 G/DL (6.4-8.2) L Albumin 2.8 G/DL (3.4-5.0) L Globulin 3.4 g/dL Albumin/Globulin Ratio 0.8 (1.0-2.7) L White Blood Count 7.5 K/UL (4.8-10.8) Red Blood Count 3.68 M/UL (4.20-5.40) L Hemoglobin 9.5 G/DL (12.0-16.0) L Hematocrit 29.8 % (37.0-47.0) L Mean Corpuscular Volume 81 FL (80-99) Mean Corpuscular Hemoglobin 25.9 PG (27.0-31.0) L Mean Corpuscular Hemoglobin Concent 32.0 G/DL (32.0-36.0) Red Cell Distribution Width 13.7 % (11.6-14.8) Platelet Count 215 K/UL (150-450) Mean Platelet Volume 6.6 FL (6.5-10.1) Neutrophils (%) (Auto) 41.4 % (45.0-75.0) L Lymphocytes (%) (Auto) 40.1 % (20.0-45.0) Monocytes (%) (Auto) 14.6 % (1.0-10.0) H Eosinophils (%) (Auto) 1.7 % (0.0-3.0) Basophils (%) (Auto) 2.2 % (0.0-2.0) H Lactic Acid Level 1.60 mmol/L (0.4-2.0) Troponin I 0.000 ng/mL (0.000-0.056) Thyroid Stimulating Hormone (TSH) 1.700 uiU/mL (0.358-3.740) Prothrombin Time 10.5 SEC (9.30-11.50) Prothrombin Time INR 1.0 (0.9-1.1) PTT 26 SEC (23-33) Urine Color Pale yellow Urine Appearance Clear Urine pH 6 (4.5-8.0) Urine Specific [place] 1.005 (1.005-1.035) Urine Protein 3+ (NEGATIVE) H Urine Glucose (UA) Negative (NEGATIVE) Urine Ketones Negative (NEGATIVE) Urine Blood Negative (NEGATIVE) Urine Nitrite Negative (NEGATIVE) Urine Bilirubin Negative (NEGATIVE) Urine Urobilinogen Normal MG/DL (0.0-1.0) Urine Leukocyte Esterase Negative (NEGATIVE) Urine RBC 0-2 /HPF (0 - 2) Urine WBC 0-2 /HPF (0 - 2) Urine Squamous Epithelial Cells Few /LPF (NONE/OCC) Urine Bacteria Occasional /HPF (NONE) Urine Opiates Screen Negative (NEGATIVE) Urine Barbiturates Screen Negative (NEGATIVE) Phencyclidine (PCP) Screen Negative (NEGATIVE) Urine Amphetamines Screen Negative (NEGATIVE) Urine Benzodiazepines Screen Negative (NEGATIVE) Urine Cocaine Screen Negative (NEGATIVE) Urine Marijuana (THC) Screen Positive (NEGATIVE) H Microbiology Date/Time Source Procedure Growth Status 10/11/18 15:50 Nasal Nares Influenza Types A,B Antigen (CASSANDRA) - Final Complete EKG Diagnostic Results Rate: tachycardiac ST Segments: no acute changes Rhythm Strip Diag. Results EP Interpretation: yes Rhythm: NSR, no PVC's, no ectopy Chest X-Ray Diagnostic Results Chest X-Ray Diagnostic Results : Chest X-Ray Ordered: Yes # of Views/Limited/Complete: 1 View Indication: Other EP Interpretation: Yes Interpretation: no effusion, no pneumothorax, other - bilat infiltrates Impression: Other Electronically Signed by: Electronically signed by Matthias Nova MD Last Vital Signs Date Time Temp Pulse Resp B/P (MAP) Pulse Ox O2 Delivery O2 Flow Rate FiO2 10/12/18 00:00 96.8 16 138/91 (107) 95 10/12/18 00:00 101 10/11/18 23:37 Room Air 10/11/18 21:20 21 Status: improved Disposition: ADMITTED INPATIENT Condition: Serious Referrals: NON PHYSICIAN (PCP) Matthias Nova MD Oct 11, 2018 16:00
[2018-10-11] MEDS ORDERED: Azithromycin 500 MG in D5W 275 ML IVPB ONE (16:15)
[2018-10-11] MEDS ORDERED: cefTRIAXone 1 GM in NS 55 ML IVPB ONE (16:15)
[2018-10-11 16:30] LABS: BASOPHILS % (AUTO) 2.2 % (0.0-2.0); EOSINOPHILS % (AUTO) 1.7 % (0.0-3.0); HEMATOCRIT 29.8 % (37.0-47.0); HEMOGLOBIN 9.5 G/DL (12.0-16.0); LYMPHOCYTES % (AUTO) 40.1 % (20.0-45.0); MEAN CORPUSCULAR VOLUME 81 FL (80-99); MONOCYTES % (AUTO) 14.6 % (1.0-10.0); NEUTROPHILS % (AUTO) 41.4 % (45.0-75.0); PLATELET COUNT 215 K/UL (150-450); RED BLOOD COUNT 3.68 M/UL (4.20-5.40); RED CELL DISTRIBUTION WIDTH 13.7 % (11.6-14.8); WHITE BLOOD COUNT 7.5 K/UL (4.8-10.8)
[2018-10-11 16:44] LABS: ANION GAP 13 mmol/L (5-15); BLOOD UREA NITROGEN 16 mg/dL (7-18); CALCIUM 9.1 MG/DL (8.5-10.1); CARBON DIOXIDE 21 MMOL/L (21-32); CHLORIDE 101 MMOL/L (98-107); CREATININE 1.1 MG/DL (0.55-1.30); POTASSIUM 3.5 MMOL/L (3.5-5.1); SODIUM 135 MMOL/L (136-145)
[2018-10-11 16:57] LABS: ALANINE AMINOTRANSFERASE 24 U/L (12-78); ALBUMIN 2.8 G/DL (3.4-5.0); ALBUMIN/GLOBULIN RATIO 0.8 (1.0-2.7); ALKALINE PHOSPHATASE 84 U/L (46-116); ASPARTATE AMINO TRANSFERASE 23 U/L (15-37); BILIRUBIN,TOTAL 0.4 MG/DL (0.2-1.0); CKMB < 0.5 NG/ML (0.0-3.6); CREATINE KINASE 29 U/L (26-308)
[2018-10-11 17:32] LABS: APPEARANCE,URINE CLEAR; BILIRUBIN, URINE NEGATIVE (NEGATIVE); COLOR,URINE PALE YELLOW; GLUCOSE, URINE (UA) NEGATIVE (NEGATIVE); KETONES,URINE NEGATIVE (NEGATIVE); LEUKOCYTE ESTERASE ,URINE NEGATIVE (NEGATIVE); NITRITE,URINE NEGATIVE (NEGATIVE); PH,URINE 6 (4.5-8.0); PROTEIN,URINE 3+ (NEGATIVE); UROBILINOGEN,URINE NORMAL MG/DL (0.0-1.0)
[2018-10-11] MEDS ORDERED: Morphine Sulfate 4mg/ml Inj (IV/IM USE ONLY) IVP PRN (18:00)
[2018-10-11] MEDS ORDERED: Miralax 17gm pkt ORAL PRN (18:00)
[2018-10-11] MEDS ORDERED: Albuterol ud Inhalation HHN ONE (18:30)
--- NOTE | 2018-10-11 18:31 | NUR ---
ED Nurse Note: Report given to [facility] over telephone. Pt stable with family at bedisde. Ready to transport to unit.
--- NOTE | 2018-10-11 19:30 | NUR ---
ED Nurse Note: Received patient from NOE Mackey. Pt AO4. VÍCTOR. BAILEE.
[2018-10-11 19:44] VITALS: BP 139/78
[2018-10-11 20:00] VITALS: BP 129/80
--- NOTE | 2018-10-11 20:10 | NUR ---
TRANSFER TO FLOOR: Patient transferred to [facility] 207-2 as ordered, per MD Carlos. Report given to NOE Little. Belongings list completed with receiving RN. Pt ambulatory AO4. NAD. VSS.
--- NOTE | 2018-10-11 20:30 | NUR ---
NURSE NOTES: Pt admitted on floor from ED All Car RN. Initial assessment done. Pt ambulatory. A+Ox4. Pt able to verbalize needs. No acute distress or discomfort noted. V/S: T:97.5 HR:113 O2:98 on room air R:18 BP:129/80. Skin intact. Pt resting in bed comfortably. Belongings checked with RN. Put on radiographer cardiac catheterization. Pt has R femoral TL iv flushes well. Admission orders already put by Dr. Lainez. Bed in low and locked position, call light within reach,bedside table within reach.Continue to monitor.
[2018-10-11] MEDS: Cefepime HCl 2 GM in D5W 110 ML IV SCH (21:29)
[2018-10-11] MEDS: Heparin 5000 units/ml inj SUBQ SCH (21:30)
[2018-10-11] MEDS ORDERED: Vancomycin 1.5 GM/D5W 250ML IVPB ONE (22:00)
[2018-10-11] MEDS ORDERED: Vancomycin 1 GM in D5W 275 ML IV SCH (23:00)
--- NOTE | 2018-10-11 23:00 | NUR ---
NURSE NOTES: Pt noted with non-productive cough. made aware with new order.Also made aware that pt has 98% O2 saturation on room air. Awaiting for diet order.
[2018-10-12] VITALS (7 sets, daily range): BP systolic 138–164; BP diastolic 84–101
[2018-10-12] MEDS: Albuterol/Ipratropium 3ml neb HHN PRN ×3 (02:29→19:22)
--- NOTE | 2018-10-12 03:55 | NUR ---
NURSE NOTES: Pt in stable condition with no signs of distress or discomfort. Pt resting in bed comfortably. Bed in low and locked position, call light within reach, bedside table within reach.Continue to monitor.
--- NOTE | 2018-10-12 07:23 | NUR ---
HAND-OFF: Report given to NOE Lynn and NOE Swanson. Endorsed plan of care.
--- NOTE | 2018-10-12 07:23 | NUR ---
NURSE NOTES: Received report from NOE Stubbs. Patient is in bed resting with no signs of acute distress and denies pain. Call light within reach. Bed in lowest position. Will continue to monitor.
[2018-10-12 08:27] LABS: BASOPHILS % (AUTO) 2.4 % (0.0-2.0); EOSINOPHILS % (AUTO) 0.1 % (0.0-3.0); HEMATOCRIT 26.9 % (37.0-47.0); HEMOGLOBIN 8.6 G/DL (12.0-16.0); LYMPHOCYTES % (AUTO) 16.7 % (20.0-45.0); MEAN CORPUSCULAR VOLUME 81 FL (80-99); MONOCYTES % (AUTO) 7.9 % (1.0-10.0); NEUTROPHILS % (AUTO) 72.9 % (45.0-75.0); PLATELET COUNT 213 K/UL (150-450); RED CELL DISTRIBUTION WIDTH 14.2 % (11.6-14.8)
[2018-10-12 08:43] LABS: ALBUMIN 2.6 G/DL (3.4-5.0); ANION GAP 12 mmol/L (5-15); BLOOD UREA NITROGEN 12 mg/dL (7-18); CALCIUM 8.7 MG/DL (8.5-10.1); CARBON DIOXIDE 21 MMOL/L (21-32); CHLORIDE 108 MMOL/L (98-107); CREATININE 0.9 MG/DL (0.55-1.30); PHOSPHORUS 2.5 MG/DL (2.5-4.9); POTASSIUM 3.7 MMOL/L (3.5-5.1); SODIUM 141 MMOL/L (136-145)
--- NOTE | 2018-10-12 08:49 | Consultation ---
History of Present Illness General Date patient seen: Oct 12, 2018 Chief Complaint: Upper Respiratory Illness Reason for Consultation: PNA Present Illness HPI Ms. Bradley is a 43 y/o F with hx of SLE (inactive for years) on Plaquenil and prednisone, Migraine Headaches, MS, Asthma, s/p b/l tubal ligation presents to ED on 10/11/18 with worsening productive cough, congestion, body aches, SOB, f/c. She was recently D/C from the hospital with CAP about two weeks ago. She was started Abx and a CXR showed infiltrated per the ED read. She had a single fever up to 103.1 but has been aferbile since. ID was consulted for PNA PMHx/PSHx SLE on Plaquenil and prednisone Migraine Headaches MS Asthma s/p b/l tubal ligation SocHx No E/T/D FamHx Not contributory Allergies: Coded Allergies: CARBAMAZEPINE (Unverified Allergy, Unknown, 09/25/14) Medication History Scheduled Acyclovir* (Acyclovir*), 400 MG ORAL DAILY, (Reported) Cetirizine Hcl* (Zyrtec*), 10 MG ORAL DAILY [plaquenil], 400 MG ORAL DAILY, (Reported) Scheduled PRN Albuterol Sulfate* (Albuterol Sulfate Mdi*), 2 PUFF INH Q4H PRN for cough/ wheezing Ibuprofen (Ibuprofen), 800 MG PO Q8HR PRN for FEVER, (Reported) Discontinued Medications Diclofenac Sod* (Voltaren*), 75 MG ORAL DAILY, (Reported) Discontinued Reason: Therapy completed Levofloxacin (Levofloxacin*), 750 MG ORAL DAILY Discontinued Reason: Therapy completed Prednisone (Prednisone), 20 MG PO DAILY Discontinued Reason: Therapy completed Patient History Healthcare decision maker Resuscitation status Advanced Directive on File Review of Systems ROS Narrative 12 point ROS negative except as note in the HPI. Physical Exam Last 24 Hour Vital Signs Date Time Temp Pulse Resp B/P (MAP) Pulse Ox O2 Delivery O2 Flow Rate FiO2 10/12/18 08:00 98.4 18 156/95 (115) 97 10/12/18 04:32 94 10/12/18 04:31 96.8 16 138/91 (107) 95 10/12/18 02:40 95 22 96 Room Air 21 10/12/18 02:29 102 25 95 Room Air 21 10/12/18 00:00 96.8 16 138/91 (107) 95 10/12/18 00:00 101 10/11/18 23:37 Room Air 10/11/18 21:20 118 20 Room Air 21 10/11/18 20:38 115 10/11/18 20:00 97.5 18 129/80 (96) 98 10/11/18 19:44 98.6 122 20 139/78 100 Room Air 10/11/18 18:54 138 28 100 Room Air 21 10/11/18 18:40 126 24 98 Room Air 21 10/11/18 18:24 98.6 137 25 135/63 94 Room Air 10/11/18 16:54 98.6 10/11/18 16:00 98.5 155 24 129/66 100 Room Air 10/11/18 16:00 155 24 Room Air 10/11/18 15:32 150 29 100 Room Air 10/11/18 15:08 140 25 99 Room Air 10/11/18 15:08 140 25 Room Air 10/11/18 14:30 98.7 145 31 132/72 99 Room Air 10/11/18 14:09 103.1 135 20 145/78 95 Room Air Intake and Output 10/11/18 10/12/18 19:00 07:00 Intake Total 120 ml Balance 120 ml Intake Oral 120 ml Laboratory Tests Test 10/11/18 14:30 10/11/18 15:50 10/11/18 17:01 10/11/18 17:15 Sodium Level 135 MMOL/L (136-145) L Potassium Level 3.5 MMOL/L (3.5-5.1) Chloride Level 101 MMOL/L (98-107) Carbon Dioxide Level 21 MMOL/L (21-32) Anion Gap 13 mmol/L (5-15) Blood Urea Nitrogen 16 mg/dL (7-18) Creatinine 1.1 MG/DL (0.55-1.30) Estimat Glomerular Filtration Rate > 60 mL/min (>60) Glucose Level 92 MG/DL (74-106) Calcium Level 9.1 MG/DL (8.5-10.1) Total Bilirubin 0.4 MG/DL (0.2-1.0) Aspartate Amino Transf (AST/SGOT) 23 U/L (15-37) Alanine Aminotransferase (ALT/SGPT) 24 U/L (12-78) Alkaline Phosphatase 84 U/L (46-116) Total Creatine Kinase 29 U/L (26-308) Creatine Kinase MB < 0.5 NG/ML (0.0-3.6) Creatine Kinase MB Relative Index 1.7 Total Protein 6.2 G/DL (6.4-8.2) L Albumin 2.8 G/DL (3.4-5.0) L Globulin 3.4 g/dL Albumin/Globulin Ratio 0.8 (1.0-2.7) L White Blood Count 7.5 K/UL (4.8-10.8) Red Blood Count 3.68 M/UL (4.20-5.40) L Hemoglobin 9.5 G/DL (12.0-16.0) L Hematocrit 29.8 % (37.0-47.0) L Mean Corpuscular Volume 81 FL (80-99) Mean Corpuscular Hemoglobin 25.9 PG (27.0-31.0) L Mean Corpuscular Hemoglobin Concent 32.0 G/DL (32.0-36.0) Red Cell Distribution Width 13.7 % (11.6-14.8) Platelet Count 215 K/UL (150-450) Mean Platelet Volume 6.6 FL (6.5-10.1) Neutrophils (%) (Auto) 41.4 % (45.0-75.0) L Lymphocytes (%) (Auto) 40.1 % (20.0-45.0) Monocytes (%) (Auto) 14.6 % (1.0-10.0) H Eosinophils (%) (Auto) 1.7 % (0.0-3.0) Basophils (%) (Auto) 2.2 % (0.0-2.0) H Lactic Acid Level 1.60 mmol/L (0.4-2.0) Troponin I 0.000 ng/mL (0.000-0.056) Thyroid Stimulating Hormone (TSH) 1.700 uiU/mL (0.358-3.740) Prothrombin Time 10.5 SEC (9.30-11.50) Prothromb Time International Ratio 1.0 (0.9-1.1) Activated Partial Thromboplast Time 26 SEC (23-33) Urine Color Pale yellow Urine Appearance Clear Urine pH 6 (4.5-8.0) Urine Specific [place] 1.005 (1.005-1.035) Urine Protein 3+ (NEGATIVE) H Urine Glucose (UA) Negative (NEGATIVE) Urine Ketones Negative (NEGATIVE) Urine Blood Negative (NEGATIVE) Urine Nitrite Negative (NEGATIVE) Urine Bilirubin Negative (NEGATIVE) Urine Urobilinogen Normal MG/DL (0.0-1.0) Urine Leukocyte Esterase Negative (NEGATIVE) Urine RBC 0-2 /HPF (0 - 2) Urine WBC 0-2 /HPF (0 - 2) Urine Squamous Epithelial Cells Few /LPF (NONE/OCC) Urine Bacteria Occasional /HPF (NONE) Urine Opiates Screen Negative (NEGATIVE) Urine Barbiturates Screen Negative (NEGATIVE) Phencyclidine (PCP) Screen Negative (NEGATIVE) Urine Amphetamines Screen Negative (NEGATIVE) Urine Benzodiazepines Screen Negative (NEGATIVE) Urine Cocaine Screen Negative (NEGATIVE) Urine Marijuana (THC) Screen Positive (NEGATIVE) H Test 10/12/18 07:30 White Blood Count Pending Red Blood Count Pending Hemoglobin Pending Hematocrit Pending Mean Corpuscular Volume Pending Mean Corpuscular Hemoglobin Pending Mean Corpuscular Hemoglobin Concent Pending Red Cell Distribution Width Pending Platelet Count Pending Mean Platelet Volume Pending Neutrophils (%) (Auto) Pending Lymphocytes (%) (Auto) Pending Monocytes (%) (Auto) Pending Eosinophils (%) (Auto) Pending Basophils (%) (Auto) Pending Sodium Level 141 MMOL/L (136-145) Potassium Level 3.7 MMOL/L (3.5-5.1) Chloride Level 108 MMOL/L (98-107) H Carbon Dioxide Level 21 MMOL/L (21-32) Anion Gap 12 mmol/L (5-15) Blood Urea Nitrogen 12 mg/dL (7-18) Creatinine 0.9 MG/DL (0.55-1.30) Estimat Glomerular Filtration Rate > 60 mL/min (>60) Glucose Level 120 MG/DL (74-106) H Calcium Level 8.7 MG/DL (8.5-10.1) Phosphorus Level 2.5 MG/DL (2.5-4.9) Albumin 2.6 G/DL (3.4-5.0) L Microbiology Date/Time Source Procedure Growth Status 10/11/18 15:50 Nasal Nares Influenza Types A,B Antigen (CASSANDRA) - Final Complete 10/11/18 17:15 Urine,Clean Catch Urine Culture - Preliminary NO GROWTH Resulted Height (Feet): 5 Height (Inches): 1.00 Weight (Pounds): 175 Medications Current Medications Medications (Trade) Dose Ordered Sig/Aileen Route PRN Reason Start Time Stop Time Status Last Admin Dose Admin Acetaminophen (Tylenol) 650 mg Q4H PRN ORAL FEVER (temp>100.5F) 10/11/18 18:00 11/10/18 17:59 Albuterol/ Ipratropium (Albuterol/ Ipratropium) 3 ml Q4H PRN HHN Shortness of Breath 10/11/18 18:00 10/16/18 17:59 10/12/18 02:29 Cefepime HCl 2 gm/ Dextrose 110 ml @ 220 mls/hr EVERY 12 HOURS IV 10/11/18 21:00 10/18/18 20:59 10/11/18 21:29 Chlorhexidine Gluconate (Ann-Hex 2%) 1 applic DAILY@2000 TOPIC 10/12/18 20:00 11/11/18 19:59 Dextrose (Dextrose 50%) 25 ml Q30M PRN IV Hypoglycemia 10/11/18 18:00 11/10/18 17:59 Dextrose (Dextrose 50%) 50 ml Q30M PRN IV Hypoglycemia 10/11/18 18:00 11/10/18 17:59 Heparin Sodium (Porcine) (Heparin 5000 units/ml) 5,000 units EVERY 12 HOURS SUBQ 10/11/18 21:00 11/10/18 20:59 10/11/18 21:30 Morphine Sulfate (Morphine Sulfate) 2 mg Q4H PRN IVP Severe Pain (Pain Scale 7-10) 10/11/18 18:00 10/18/18 17:59 Ondansetron HCl (Zofran) 4 mg Q6H PRN IVP Nausea & Vomiting 10/11/18 18:00 11/10/18 17:59 Polyethylene Glycol (Miralax) 17 gm DAILYPRN PRN ORAL Constipation 10/11/18 18:00 11/10/18 17:59 Vancomycin HCl (Vanco rx to dose) 1 ea DAILY PRN MISC PER RX PROTOCOL 10/11/18 18:15 11/10/18 18:14 Vancomycin/Sodium Chloride 250 ml @ 166.667 mls/hr Q12HR@1000,2200 IVPB 10/12/18 10:00 10/17/18 09:59 Objective Narrative Gen: NAD, well appearing, alert HEENT: NCAT, MMM, EOMI, PERRL, No Oral lesion, no scleral icterus NECK: full range of motion, supple, no meningismus, No LAD, No JVD LUNGS: B/L Congestion and Wheezing, No Accessory muscle use CARDS: RRR, S1, S2, No M/R/G, ABD: Soft, NT, ND, No R/G, + BS, No HSM, No Masses : Deferred Ext: C/C/E, Pulses 2+ B/L (DP, Rad): NEURO: A/O x 4, Strength and Sensation Grossly intact PSYCH: Mood/affect normal SKIN: Warm/dry, No rashes Assessment/Plan Assessment/Plan 43 y/o F with hx of SLE (inactive for years) on Plaquenil and prednisone, Migraine Headaches, MS, Asthma, s/p b/l tubal ligation presents to ED on 10/11/18 with worsening productive cough, congestion, body aches, SOB, f/c. CAP, likely complication of viral URI, Suspect asthma exacerbation contributing -influenz sc neg -CXR - read pending -SCx pend - On Abx for HAP Fever - resolved Leukocytosis (on high dose steroids) SLE on Plaquenil and steroids Migraine Headaches MS Plan: - D/C Cefepime and Vancomcyin - Start levofloxacin PO 750mg Qday #10/14 - f/u cx - f/u CXR - Monitor CBC/CMP, temperatures - Aspiration precautions Thank you for this consult. We will continue to follow the patient during this hospitalization. Matthias Flores MD Oct 12, 2018 08:49
[2018-10-12] MEDS: Heparin 5000 units/ml inj SUBQ SCH ×2 (09:00→20:29)
[2018-10-12] MEDS: Cefepime HCl 2 GM in D5W 110 ML IV SCH (09:06)
--- NOTE | 2018-10-12 09:13 | NUR ---
INSURANCE ALL AVAILABLE CLINICALS FAXED TO: EDITA ELLIS:NIA P:[phone] F:[phone] REF#[id number]
[2018-10-12] MEDS ORDERED: Vancomycin 750mg/NS 250ml IVPB SCH (10:00)
[2018-10-12] MEDS ORDERED: Levofloxacin 500mg tab ORAL SCH (11:00)
--- NOTE | 2018-10-12 11:58 | NUR ---
CASE MANAGEMENT:REVIEW 43 YR OLD FEMALE FROM HOME CC: FLU LIKE SYMPTOMS AND FEVER 103.1 PMH: ASTHMA. PNA. LUPUS SI: PNEUMONIA. BRONCHOSPASM 103.1 135 20 145/78 95% ON RA H/H-9.5/29.8 ALB-2.8 IS: DUONEB HHN X4 IV ROCEPHIN IV AZITHROMYCIN IV SOLUMEDROL 1L NS BOLUS IV ZOFRAN IV MORPHINE TYLENOL PO CXR SPUTUM CX : TO TELEMETRY UNIT
--- NOTE | 2018-10-12 12:07 | Consultation ---
History of Present Illness General Date patient seen: Oct 12, 2018 Chief Complaint: Upper Respiratory Illness Reason for Consultation: PNA Present Illness HPI 43 year old female with hx of lupus, Asthma, multiple sclerosis, presented to ER with fever and cough. She was diagnosed to have sepsis and pneumonia and admitted to telemetry for further management. Allergies: Coded Allergies: CARBAMAZEPINE (Unverified Allergy, Unknown, 09/25/14) Medication History Scheduled Acyclovir* (Acyclovir*), 400 MG ORAL DAILY, (Reported) Cetirizine Hcl* (Zyrtec*), 10 MG ORAL DAILY [plaquenil], 400 MG ORAL DAILY, (Reported) Scheduled PRN Albuterol Sulfate* (Albuterol Sulfate Mdi*), 2 PUFF INH Q4H PRN for cough/ wheezing Ibuprofen (Ibuprofen), 800 MG PO Q8HR PRN for FEVER, (Reported) Discontinued Medications Diclofenac Sod* (Voltaren*), 75 MG ORAL DAILY, (Reported) Discontinued Reason: Therapy completed Levofloxacin (Levofloxacin*), 750 MG ORAL DAILY Discontinued Reason: Therapy completed Prednisone (Prednisone), 20 MG PO DAILY Discontinued Reason: Therapy completed Patient History Healthcare decision maker Resuscitation status Advanced Directive on File Past Medical/Surgical History Past Medical/Surgical History: (1) History of asthma (2) History of systemic lupus erythematosus (SLE) Review of Systems Respiratory: Reports: cough, shortness of breath All Other Systems: negative except mentioned in HPI Physical Exam General Appearance: WD/WN Lines, tubes and drains: peripheral HEENT: normocephalic, atraumatic Neck: non-tender, normal alignment Respiratory/Chest: chest wall non-tender, lungs clear Breasts: no masses Cardiovascular/Chest: normal peripheral pulses Abdomen: normal bowel sounds Genitourinary/Rectal: normal genital exam Extremities: normal range of motion 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 Last 24 Hour Vital Signs Date Time Temp Pulse Resp B/P (MAP) Pulse Ox O2 Delivery O2 Flow Rate FiO2 10/12/18 12:00 98.5 18 164/101 (122) 96 10/12/18 09:00 Room Air 10/12/18 08:00 98.4 18 156/95 (115) 97 10/12/18 07:31 86 10/12/18 04:32 94 10/12/18 04:31 96.8 16 138/91 (107) 95 10/12/18 02:40 95 22 96 Room Air 21 10/12/18 02:29 102 25 95 Room Air 21 10/12/18 00:00 96.8 16 138/91 (107) 95 10/12/18 00:00 101 10/11/18 23:37 Room Air 10/11/18 21:20 118 20 Room Air 21 10/11/18 20:38 115 10/11/18 20:00 97.5 18 129/80 (96) 98 10/11/18 19:44 98.6 122 20 139/78 100 Room Air 10/11/18 18:54 138 28 100 Room Air 21 10/11/18 18:40 126 24 98 Room Air 21 10/11/18 18:24 98.6 137 25 135/63 94 Room Air 10/11/18 16:54 98.6 10/11/18 16:00 98.5 155 24 129/66 100 Room Air 10/11/18 16:00 155 24 Room Air 10/11/18 15:32 150 29 100 Room Air 10/11/18 15:08 140 25 99 Room Air 21 10/11/18 15:08 140 25 Room Air 21 10/11/18 14:30 98.7 145 31 132/72 99 Room Air 10/11/18 14:09 103.1 135 20 145/78 95 Room Air Intake and Output 10/11/18 10/12/18 19:00 07:00 Intake Total 120 ml Balance 120 ml Intake Oral 120 ml Laboratory Tests Test 10/11/18 14:30 10/11/18 15:50 10/11/18 17:01 10/11/18 17:15 Sodium Level 135 MMOL/L (136-145) L Potassium Level 3.5 MMOL/L (3.5-5.1) Chloride Level 101 MMOL/L (98-107) Carbon Dioxide Level 21 MMOL/L (21-32) Anion Gap 13 mmol/L (5-15) Blood Urea Nitrogen 16 mg/dL (7-18) Creatinine 1.1 MG/DL (0.55-1.30) Estimat Glomerular Filtration Rate > 60 mL/min (>60) Glucose Level 92 MG/DL (74-106) Calcium Level 9.1 MG/DL (8.5-10.1) Total Bilirubin 0.4 MG/DL (0.2-1.0) Aspartate Amino Transf (AST/SGOT) 23 U/L (15-37) Alanine Aminotransferase (ALT/SGPT) 24 U/L (12-78) Alkaline Phosphatase 84 U/L (46-116) Total Creatine Kinase 29 U/L (26-308) Creatine Kinase MB < 0.5 NG/ML (0.0-3.6) Creatine Kinase MB Relative Index 1.7 Total Protein 6.2 G/DL (6.4-8.2) L Albumin 2.8 G/DL (3.4-5.0) L Globulin 3.4 g/dL Albumin/Globulin Ratio 0.8 (1.0-2.7) L White Blood Count 7.5 K/UL (4.8-10.8) Red Blood Count 3.68 M/UL (4.20-5.40) L Hemoglobin 9.5 G/DL (12.0-16.0) L Hematocrit 29.8 % (37.0-47.0) L Mean Corpuscular Volume 81 FL (80-99) Mean Corpuscular Hemoglobin 25.9 PG (27.0-31.0) L Mean Corpuscular Hemoglobin Concent 32.0 G/DL (32.0-36.0) Red Cell Distribution Width 13.7 % (11.6-14.8) Platelet Count 215 K/UL (150-450) Mean Platelet Volume 6.6 FL (6.5-10.1) Neutrophils (%) (Auto) 41.4 % (45.0-75.0) L Lymphocytes (%) (Auto) 40.1 % (20.0-45.0) Monocytes (%) (Auto) 14.6 % (1.0-10.0) H Eosinophils (%) (Auto) 1.7 % (0.0-3.0) Basophils (%) (Auto) 2.2 % (0.0-2.0) H Lactic Acid Level 1.60 mmol/L (0.4-2.0) Troponin I 0.000 ng/mL (0.000-0.056) Thyroid Stimulating Hormone (TSH) 1.700 uiU/mL (0.358-3.740) Prothrombin Time 10.5 SEC (9.30-11.50) Prothromb Time International Ratio 1.0 (0.9-1.1) Activated Partial Thromboplast Time 26 SEC (23-33) Urine Color Pale yellow Urine Appearance Clear Urine pH 6 (4.5-8.0) Urine Specific [place] 1.005 (1.005-1.035) Urine Protein 3+ (NEGATIVE) H Urine Glucose (UA) Negative (NEGATIVE) Urine Ketones Negative (NEGATIVE) Urine Blood Negative (NEGATIVE) Urine Nitrite Negative (NEGATIVE) Urine Bilirubin Negative (NEGATIVE) Urine Urobilinogen Normal MG/DL (0.0-1.0) Urine Leukocyte Esterase Negative (NEGATIVE) Urine RBC 0-2 /HPF (0 - 2) Urine WBC 0-2 /HPF (0 - 2) Urine Squamous Epithelial Cells Few /LPF (NONE/OCC) Urine Bacteria Occasional /HPF (NONE) Urine Opiates Screen Negative (NEGATIVE) Urine Barbiturates Screen Negative (NEGATIVE) Phencyclidine (PCP) Screen Negative (NEGATIVE) Urine Amphetamines Screen Negative (NEGATIVE) Urine Benzodiazepines Screen Negative (NEGATIVE) Urine Cocaine Screen Negative (NEGATIVE) Urine Marijuana (THC) Screen Positive (NEGATIVE) H Test 10/12/18 07:30 White Blood Count 9.0 K/UL (4.8-10.8) Red Blood Count 3.30 M/UL (4.20-5.40) L Hemoglobin 8.6 G/DL (12.0-16.0) L Hematocrit 26.9 % (37.0-47.0) L Mean Corpuscular Volume 81 FL (80-99) Mean Corpuscular Hemoglobin 25.9 PG (27.0-31.0) L Mean Corpuscular Hemoglobin Concent 31.9 G/DL (32.0-36.0) L Red Cell Distribution Width 14.2 % (11.6-14.8) Platelet Count 213 K/UL (150-450) Mean Platelet Volume 5.8 FL (6.5-10.1) L Neutrophils (%) (Auto) 72.9 % (45.0-75.0) Lymphocytes (%) (Auto) 16.7 % (20.0-45.0) L Monocytes (%) (Auto) 7.9 % (1.0-10.0) Eosinophils (%) (Auto) 0.1 % (0.0-3.0) Basophils (%) (Auto) 2.4 % (0.0-2.0) H Sodium Level 141 MMOL/L (136-145) Potassium Level 3.7 MMOL/L (3.5-5.1) Chloride Level 108 MMOL/L (98-107) H Carbon Dioxide Level 21 MMOL/L (21-32) Anion Gap 12 mmol/L (5-15) Blood Urea Nitrogen 12 mg/dL (7-18) Creatinine 0.9 MG/DL (0.55-1.30) Estimat Glomerular Filtration Rate > 60 mL/min (>60) Glucose Level 120 MG/DL (74-106) H Calcium Level 8.7 MG/DL (8.5-10.1) Phosphorus Level 2.5 MG/DL (2.5-4.9) Albumin 2.6 G/DL (3.4-5.0) L Microbiology Date/Time Source Procedure Growth Status 10/11/18 15:50 Nasal Nares Influenza Types A,B Antigen (CASSANDRA) - Final Complete 10/11/18 17:15 Urine,Clean Catch Urine Culture - Preliminary NO GROWTH Resulted Height (Feet): 5 Height (Inches): 1.00 Weight (Pounds): 175 Medications Current Medications Medications (Trade) Dose Ordered Sig/Aileen Route PRN Reason Start Time Stop Time Status Last Admin Dose Admin Acetaminophen (Tylenol) 650 mg Q4H PRN ORAL FEVER (temp>100.5F) 10/11/18 18:00 11/10/18 17:59 Albuterol/ Ipratropium (Albuterol/ Ipratropium) 3 ml Q4H PRN HHN Shortness of Breath 10/11/18 18:00 10/16/18 17:59 10/12/18 02:29 Chlorhexidine Gluconate (Ann-Hex 2%) 1 applic DAILY@1999 TOPIC 10/12/18 20:00 11/11/18 19:59 Dextrose (Dextrose 50%) 25 ml Q30M PRN IV Hypoglycemia 10/11/18 18:00 11/10/18 17:59 Dextrose (Dextrose 50%) 50 ml Q30M PRN IV Hypoglycemia 10/11/18 18:00 11/10/18 17:59 Heparin Sodium (Porcine) (Heparin 5000 units/ml) 5,000 units EVERY 12 HOURS SUBQ 10/11/18 21:00 11/10/18 20:59 10/11/18 21:30 Levofloxacin (Levaquin) 500 mg DAILY ORAL 10/12/18 11:00 10/19/18 10:59 10/12/18 11:03 Morphine Sulfate (Morphine Sulfate) 2 mg Q4H PRN IVP Severe Pain (Pain Scale 7-10) 10/11/18 18:00 10/18/18 17:59 Ondansetron HCl (Zofran) 4 mg Q6H PRN IVP Nausea & Vomiting 10/11/18 18:00 11/10/18 17:59 Polyethylene Glycol (Miralax) 17 gm DAILYPRN PRN ORAL Constipation 10/11/18 18:00 11/10/18 17:59 Assessment/Plan Problem List: (1) Pneumonia ICD Codes: J18.9 - Pneumonia, unspecified organism SNOMED: 087363537 Qualifiers: Qualified Codes: J18.1 - Lobar pneumonia, unspecified organism (2) History of asthma ICD Codes: Z87.09 - Personal history of other diseases of the respiratory system SNOMED: 785665116 (3) History of systemic lupus erythematosus (SLE) ICD Codes: Z87.39 - Personal history of other diseases of the musculoskeletal system and connective tissue SNOMED: 024022253 Assessment/Plan respiratory treatment check electrolytes iv abx titrate fio2 to sat of 92% Kadeem Lainez MD Oct 12, 2018 12:07
--- NOTE | 2018-10-12 13:48 | NUR ---
NURSE NOTES: Left a message to Dr. Fernandez regarding blood pressure 164/101n and 146/94. New orders recieve
--- NOTE | 2018-10-12 13:50 | NUR ---
NURSE NOTES: Left a message to Dr. Fernandez regarding blood pressure 164/101n and 146/94. New orders received. Will take note and carry out.
--- NOTE | 2018-10-12 15:50 | NUR ---
TRANSFER TO FLOOR: Patient transferred to [facility], per Dr. Lainez's order. Report given to Gerry Carpio. Belongings and medications given to GERRY Carpio. Family informed of transfer.
--- NOTE | 2018-10-12 15:50 | NUR ---
NURSE NOTES: REC'D FROM 2E A 43 YR OLD FEMALE WITH DX OF PNEUMONIA. AWAKE /ALERT. NO C/O PAIN. NO ACUTE SOB. IN NO DISTRESS.
--- NOTE | 2018-10-12 17:00 | NUR ---
NURSE NOTES: mrsa, vre, cre collected and sent to lab per protocol.
[2018-10-12] MEDS ORDERED: Miralax 17gm pkt ORAL PRN (18:00)
--- NOTE | 2018-10-12 18:04 | History & Physical ---
History and Physical History & Physicial Jason Gonzalez MD Oct 12, 2018 18:04
[2018-10-12] MEDS: guaiFENesin ER 600mg tab ORAL SCH (18:06)
[2018-10-12] MEDS: Morphine Sulfate 4mg/ml Inj (IV/IM USE ONLY) IVP PRN (18:56)
--- NOTE | 2018-10-12 19:00 | NUR ---
NURSE NOTES: RESTING IN BED. IN NO DISTRESS.
--- NOTE | 2018-10-12 19:15 | NUR ---
NURSE NOTES: Pt awake and alert x4, resting in bed. No s/s of acute distress noted, breathing even and unlabored to room air. No complaining of pain, IV patent with no s/s of infiltration. Irrigated 10cc to right catheter pt tolerated well. Bed to lowest position, call light within reach, will continue to monitor. Addendum: 10/12/18 at 1928 by Aparna Garcia RN Wrong pt documentation.
--- NOTE | 2018-10-12 19:28 | NUR ---
Pt resting in bed awake, sitting in bed receiving respiratory treatment. No s/s of acute distress noted, no complaining of pain. Bed to lowest position, call light within reach, will continue to monitor.
--- NOTE | 2018-10-12 19:30 | NUR ---
HAND-OFF: Report given to ELVIE LIU.
--- NOTE | 2018-10-12 19:30 | History and Physical Report ---
DATE OF ADMISSION: 10/11/2018 CHIEF COMPLAINT: Shortness of breath and cough. HISTORY OF PRESENT ILLNESS: This is a 43-year-old very unfortunate female with past medical history significant for SLE on Plaquenil, history of migraine headaches, multiple sclerosis, asthma, as well as hypertension, morbid obesity, and history of bilateral tubal ligation, who presented to emergency room complaining about worsening of productive cough associated with chest congestion, body aches, and shortness of breath. The patient was recently discharged from the [facility] due to community-acquired pneumonia about two weeks ago, received antibiotics. Shortly after initial evaluation in the emergency, the patient was admitted to the hospital with pneumonia and a fever of 103.1. PAST MEDICAL HISTORY AND PAST SURGICAL HISTORY: As above. History of SLE on Plaquenil, migraine headache, multiple sclerosis, asthma, bilateral tubal ligation, and hypertension. MEDICATIONS: At home, please refer to medication reconciliation. ALLERGIES: Carbamazepine. SOCIAL HISTORY: Denies any smoking, alcohol, or drugs. FAMILY HISTORY: Noncontributory. REVIEW OF SYSTEMS: Mostly as above. Denies any dysuria, frequency, or hematuria. Denies any hemoptysis or hematochezia. Denies any suicidal or homicidal ideation. Complained of a productive cough with yellowish sputum. Denies any loss of consciousness. Denies any fall or head trauma. Complained about fever, chills and weakness. PHYSICAL EXAMINATION: VITAL SIGNS: On admission, temperature 98.4, pulse 94, respirations 18, and blood pressure 156/95. GENERAL: The patient is awake and responsive, in no acute distress. HEAD AND NECK: Pupils are equal and reactive to light. Extraocular movements are intact. Neck was supple. No JVD. LUNGS: Good air entry. Expiratory wheezes bilaterally. No rhonchi. HEART: S1 and S2. Regular rhythm. No murmur or gallops. Distant heart sounds. ABDOMEN: Soft, nontender, and nondistended. Mildly obese. EXTREMITIES: No cyanosis, clubbing, or edema. NEUROLOGIC: Cranial nerves II through XII grossly intact. Moves all four extremities. Gait is intact. RECTAL: Refused and deferred. GENITOURINARY: Refused and deferred. LABORATORY AND DIAGNOSTIC DATA: On admission, WBC of 7.5, hemoglobin 9.5, hematocrit 29, and platelets 215,000. PT 10, INR 1.1, and PTT 26. Sodium 135, potassium 3.5, chloride 101, bicarbonate 21, BUN 16, and creatinine 1.1. Glucose is 92. Lactic acid is 1.6. First troponin 0.00. TSH is 1.70. AST 20, ALT 24. Urinalysis +3 protein, otherwise all negative. Urine drug screen is positive for marijuana. Chest x-ray is still pending. ASSESSMENT: 1. Acute pneumonia. 2. Acute asthma exacerbation. 3. History of multiple sclerosis. 4. Systemic lupus erythematosus. 5. Migraine headache. 6. Morbid obesity. PLAN: 1. Admit the patient to medical/surgical. 2. Discussed with Dr. Lainez from Pulmonary Critical Care and Dr. Matthias Flores from Infectious Disease. 3. We follow up with laboratory and cultures. 4. Broad spectrum antibiotic with Levaquin. 5. Monitor blood cultures. 6. Nebulizer treatment. 7. Code status, Full Code. 8. DVT prophylaxis is heparin subcutaneous. Jason Gonzalez M.D. DR: MICHAEL JOB#: [id number] CC:
[2018-10-12] MEDS ORDERED: Dyna-Hex 2% Top Sol 2oz TOPIC SCH (20:00)
[2018-10-12] MEDS: Dyna-Hex 2% Top Sol 2oz TOPIC SCH (20:28)
[2018-10-12] MEDS: Guaifenesin/DM 10ml syrup ORAL PRN (21:56)
[2018-10-13] VITALS (7 sets, daily range): BP systolic 127–180; BP diastolic 90–115
[2018-10-13] MEDS: Albuterol/Ipratropium 3ml neb HHN PRN ×4 (00:46→20:29)
[2018-10-13] MEDS: Morphine Sulfate 4mg/ml Inj (IV/IM USE ONLY) IVP PRN ×3 (01:22→19:38)
[2018-10-13] MEDS: Guaifenesin/DM 10ml syrup ORAL PRN ×2 (03:38→08:36)
--- NOTE | 2018-10-13 07:23 | NUR ---
NURSE NOTES: AWAKE/ALERT. NO C/O PAIN. WITH OCCASSIONAL COUGH. NO SOB. IN NO DISTRESS.
--- NOTE | 2018-10-13 07:29 | NUR ---
HAND-OFF: Report given to NOE Carpio.
[2018-10-13] MEDS: guaiFENesin ER 600mg tab ORAL SCH ×2 (08:36→17:32)
[2018-10-13] MEDS: Levofloxacin 500mg tab ORAL SCH (08:36)
[2018-10-13] MEDS: Heparin 5000 units/ml inj SUBQ SCH ×2 (08:37→21:00)
--- NOTE | 2018-10-13 08:47 | Infectious Diseases Prog Note ---
Assessment/Plan Assessment/Plan 43 y/o F with hx of SLE (inactive for years) on Plaquenil and prednisone, Migraine Headaches, MS, Asthma, s/p b/l tubal ligation presents to ED on 10/11/18 with worsening productive cough, congestion, body aches, SOB, f/c. CAP, likely complication of viral URI, Suspect asthma exacerbation contributing -influenz sc neg -CXR - read pending -SCx pend - On Abx for HAP Fever - resolved Leukocytosis (on high dose steroids) SLE on Plaquenil and steroids Migraine Headaches MS Plan: - Continue levofloxacin PO 500mg Qday #2/6 - 10/12/17 SP Cefepime and Vancomcyin #1- f/u cx - f/u CXR - Monitor CBC/CMP, temperatures - Aspiration precautions Thank you for this consult. We will continue to follow the patient during this hospitalization. Subjective Allergies: Coded Allergies: CARBAMAZEPINE (Unverified Allergy, Unknown, 09/25/14) Subjective Patient remains aferbile and on RA Breathing better Objective Vital Signs Last 24 Hour Vital Signs Date Time Temp Pulse Resp B/P (MAP) Pulse Ox O2 Delivery O2 Flow Rate FiO2 10/13/18 08:02 97.9 89 18 163/97 (119) 100 10/13/18 07:59 Room Air 10/13/18 05:13 74 20 98 Room Air 21 10/13/18 05:06 70 18 96 Room Air 21 10/13/18 04:00 97.3 93 20 144/92 (109) 99 10/13/18 00:56 96 22 99 Room Air 21 10/13/18 00:46 92 22 96 Room Air 21 10/13/18 00:00 97.2 85 18 127/98 (108) 98 10/12/18 21:00 Room Air 10/12/18 20:00 97.9 96 18 145/84 (104) 96 10/12/18 19:30 90 20 99 Room Air 21 10/12/18 19:23 86 22 Room Air 21 10/12/18 19:22 86 22 96 Room Air 21 10/12/18 16:00 98.0 18 160/96 (117) 98 10/12/18 13:21 99 20 99 Room Air 21 10/12/18 13:21 99 20 Room Air 21 10/12/18 12:53 146/94 (111) 87 10/12/18 12:00 98.5 18 164/101 (122) 96 10/12/18 09:00 Room Air Height (Feet): 5 Height (Inches): 1.00 Weight (Pounds): 175 Objective Gen: NAD, well appearing, alert HEENT: NCAT, MMM, EOM LUNGS: Mild Wheezing, No Accessory muscle use CARDS: RRR, S1, S2, No M/R/G, ABD: Soft, NT, ND, + BS NEURO: A/O x 4, Strength and Sensation Grossly intact Microbiology Date/Time Source Procedure Growth Status 10/11/18 18:25 Sputum Gram Stain - Final Resulted 10/11/18 18:25 Sputum Sputum Culture Pending Resulted 10/11/18 15:50 Nasal Nares Influenza Types A,B Antigen (CASSANDRA) - Final Complete 10/11/18 17:15 Urine,Clean Catch Urine Culture - Preliminary NO GROWTH Resulted Current Medications Medications (Trade) Dose Ordered Sig/Aileen Route PRN Reason Start Time Stop Time Status Last Admin Dose Admin Acetaminophen (Tylenol) 650 mg Q4H PRN ORAL FEVER (temp>100.5F) 10/12/18 18:00 11/10/18 17:59 Albuterol/ Ipratropium (Albuterol/ Ipratropium) 3 ml Q4H PRN HHN Shortness of Breath 10/12/18 18:00 10/16/18 17:59 10/13/18 05:04 Chlorhexidine Gluconate (Ann-Hex 2%) 1 applic DAILY@2000 TOPIC 10/12/18 20:00 11/11/18 19:59 10/12/18 20:28 Clonidine HCl (Catapres Tab) 0.1 mg EVERY 8 HOURS PRN ORAL For High Blood Pressure 10/12/18 22:00 11/11/18 13:59 Dextrose (Dextrose 50%) 25 ml Q30M PRN IV Hypoglycemia 10/12/18 16:00 11/10/18 17:59 Dextrose (Dextrose 50%) 50 ml Q30M PRN IV Hypoglycemia 10/12/18 16:00 11/10/18 17:59 Guaifenesin (Mucinex ER) 600 mg TWICE A DAY ORAL 10/12/18 18:00 11/11/18 17:59 10/13/18 08:36 Guaifenesin/ Dextromethorphan (Robitussin DM Syrup) 10 ml Q4H PRN ORAL For Cough 10/12/18 18:00 11/11/18 17:59 10/13/18 08:36 Heparin Sodium (Porcine) (Heparin 5000 units/ml) 5,000 units EVERY 12 HOURS SUBQ 10/12/18 21:00 11/10/18 20:59 Levofloxacin (Levaquin) 500 mg DAILY ORAL 10/13/18 09:00 10/19/18 10:59 10/13/18 08:36 Morphine Sulfate (Morphine Sulfate) 2 mg Q4H PRN IVP Severe Pain (Pain Scale 7-10) 10/12/18 18:00 10/18/18 17:59 10/13/18 01:22 Ondansetron HCl (Zofran) 4 mg Q6H PRN IVP Nausea & Vomiting 10/12/18 18:00 11/10/18 17:59 Polyethylene Glycol (Miralax) 17 gm DAILYPRN PRN ORAL Constipation 10/12/18 18:00 11/10/18 17:59 Matthias Flores MD Oct 13, 2018 08:46
--- NOTE | 2018-10-13 12:40 | Pulmonology Progress Note ---
Assessment/Plan Problems: (1) Pneumonia (2) History of asthma (3) History of systemic lupus erythematosus (SLE) Assessment/Plan continue abx respiratory treatment check electrolytes Subjective ROS Limited/Unobtainable: No Constitutional: Reports: no symptoms HEENT: Repors: no symptoms Respiratory: Reports: no symptoms Allergies: Coded Allergies: CARBAMAZEPINE (Unverified Allergy, Unknown, 09/25/14) Objective Last 24 Hour Vital Signs Date Time Temp Pulse Resp B/P (MAP) Pulse Ox O2 Delivery O2 Flow Rate FiO2 10/13/18 09:18 78 20 98 Room Air 21 10/13/18 09:13 97.9 10/13/18 09:08 88 20 Room Air 21 10/13/18 09:08 72 18 96 Room Air 21 10/13/18 08:42 163/97 10/13/18 08:02 97.9 89 18 163/97 (119) 100 10/13/18 07:59 Room Air 10/13/18 05:13 74 20 98 Room Air 21 10/13/18 05:06 70 18 96 Room Air 21 10/13/18 04:00 97.3 93 20 144/92 (109) 99 10/13/18 00:56 96 22 99 Room Air 21 10/13/18 00:46 92 22 96 Room Air 21 10/13/18 00:00 97.2 85 18 127/98 (108) 98 10/12/18 21:00 Room Air 10/12/18 20:00 97.9 96 18 145/84 (104) 96 10/12/18 19:30 90 20 99 Room Air 21 10/12/18 19:23 86 22 Room Air 21 10/12/18 19:22 86 22 96 Room Air 21 10/12/18 16:00 98.0 18 160/96 (117) 98 10/12/18 13:21 99 20 99 Room Air 21 10/12/18 13:21 99 20 Room Air 10/12/18 12:53 146/94 (111) 87 Intake and Output 10/12/18 10/13/18 19:00 07:00 Intake Total 690 ml 250 ml Balance 690 ml 250 ml Intake Oral 690 ml 250 ml # Voids 2 2 # Bowel Movements 1 General Appearance: WD/WN HEENT: normocephalic, atraumatic Respiratory/Chest: chest wall non-tender, lungs clear Breasts: no masses Cardiovascular: normal peripheral pulses Abdomen: normal bowel sounds, soft, non tender Genitourinary: normal external genitalia Extremities: no cyanosis Skin: no lesions 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 Resulted 10/11/18 15:50 Nasal Nares Influenza Types A,B Antigen (CASSANDRA) - Final Complete 10/11/18 17:15 Urine,Clean Catch Urine Culture - Final Lactobacillus Species Complete Current Medications Medications (Trade) Dose Ordered Sig/Aileen Route PRN Reason Start Time Stop Time Status Last Admin Dose Admin Acetaminophen (Tylenol) 650 mg Q4H PRN ORAL FEVER (temp>100.5F) 10/12/18 18:00 11/10/18 17:59 Albuterol/ Ipratropium (Albuterol/ Ipratropium) 3 ml Q4H PRN HHN Shortness of Breath 10/12/18 18:00 10/16/18 17:59 10/13/18 09:09 Chlorhexidine Gluconate (Ann-Hex 2%) 1 applic DAILY@2000 TOPIC 10/12/18 20:00 11/11/18 19:59 10/12/18 20:28 Clonidine HCl (Catapres Tab) 0.1 mg EVERY 8 HOURS PRN ORAL For High Blood Pressure 10/12/18 22:00 11/11/18 13:59 10/13/18 08:42 Dextrose (Dextrose 50%) 25 ml Q30M PRN IV Hypoglycemia 10/12/18 16:00 11/10/18 17:59 Dextrose (Dextrose 50%) 50 ml Q30M PRN IV Hypoglycemia 10/12/18 16:00 11/10/18 17:59 Guaifenesin (Mucinex ER) 600 mg TWICE A DAY ORAL 10/12/18 18:00 11/11/18 17:59 10/13/18 08:36 Guaifenesin/ Dextromethorphan (Robitussin DM Syrup) 10 ml Q4H PRN ORAL For Cough 10/12/18 18:00 11/11/18 17:59 10/13/18 08:36 Heparin Sodium (Porcine) (Heparin 5000 units/ml) 5,000 units EVERY 12 HOURS SUBQ 10/12/18 21:00 11/10/18 20:59 Levofloxacin (Levaquin) 500 mg DAILY ORAL 10/13/18 09:00 10/19/18 10:59 10/13/18 08:36 Morphine Sulfate (Morphine Sulfate) 2 mg Q4H PRN IVP Severe Pain (Pain Scale 7-10) 10/12/18 18:00 10/18/18 17:59 10/13/18 08:43 Ondansetron HCl (Zofran) 4 mg Q6H PRN IVP Nausea & Vomiting 10/12/18 18:00 11/10/18 17:59 Polyethylene Glycol (Miralax) 17 gm DAILYPRN PRN ORAL Constipation 10/12/18 18:00 11/10/18 17:59 Kadeem Lainez MD Oct 13, 2018 12:40
[2018-10-13] MEDS ORDERED: Promethazine/Codeine 5ml UD ORAL PRN (12:45)
--- NOTE | 2018-10-13 15:49 | Diagnostic Imaging Report ---
Indication: Chest pain Comparison: 09/18/2018 A single view chest radiograph was obtained. Findings: Mild infiltrate or atelectasis suspected at the left lung base. Heart size is normal. Bones are unremarkable. IMPRESSION: Infiltrate versus atelectasis left lung base
--- NOTE | 2018-10-13 16:00 | NUR ---
NURSE NOTES: BP 180/115. DR Raffaele VARGAS HERE AND INFORMED WITH NEW ORDER.
--- NOTE | 2018-10-13 16:03 | Internal Med Progress Note ---
Subjective Date of Service: Oct 13, 2018 Physician Name Leonid Salmeron Attending Physician Jason Gonzalez MD Current Medications Medications (Trade) Dose Ordered Sig/Aileen Route PRN Reason Start Time Stop Time Status Last Admin Dose Admin Acetaminophen (Tylenol) 650 mg Q4H PRN ORAL FEVER (temp>100.5F) 10/12/18 18:00 11/10/18 17:59 Albuterol/ Ipratropium (Albuterol/ Ipratropium) 3 ml Q4H PRN HHN Shortness of Breath 10/12/18 18:00 10/16/18 17:59 10/13/18 09:09 Chlorhexidine Gluconate (Ann-Hex 2%) 1 applic DAILY@1999 TOPIC 10/12/18 20:00 11/11/18 19:59 10/12/18 20:28 Clonidine HCl (Catapres Tab) 0.1 mg EVERY 8 HOURS PRN ORAL For High Blood Pressure 10/12/18 22:00 11/11/18 13:59 10/13/18 08:42 Dextrose (Dextrose 50%) 25 ml Q30M PRN IV Hypoglycemia 10/12/18 16:00 11/10/18 17:59 Dextrose (Dextrose 50%) 50 ml Q30M PRN IV Hypoglycemia 10/12/18 16:00 11/10/18 17:59 Guaifenesin (Mucinex ER) 600 mg TWICE A DAY ORAL 10/12/18 18:00 11/11/18 17:59 10/13/18 08:36 Heparin Sodium (Porcine) (Heparin 5000 units/ml) 5,000 units EVERY 12 HOURS SUBQ 10/12/18 21:00 11/10/18 20:59 Levofloxacin (Levaquin) 500 mg DAILY ORAL 10/13/18 09:00 10/19/18 10:59 10/13/18 08:36 Morphine Sulfate (Morphine Sulfate) 2 mg Q4H PRN IVP Severe Pain (Pain Scale 7-10) 10/12/18 18:00 10/18/18 17:59 10/13/18 08:43 Ondansetron HCl (Zofran) 4 mg Q6H PRN IVP Nausea & Vomiting 10/12/18 18:00 11/10/18 17:59 Polyethylene Glycol (Miralax) 17 gm DAILYPRN PRN ORAL Constipation 10/12/18 18:00 11/10/18 17:59 Promethazine HCl/ Codeine (Phenergan with Codeine) 10 ml TIDPRN PRN ORAL For Cough 10/13/18 12:45 11/12/18 12:44 Temazepam (Restoril) 15 mg HSPRN PRN ORAL Insomnia 10/13/18 12:45 10/20/18 12:44 Allergies: Coded Allergies: CARBAMAZEPINE (Unverified Allergy, Unknown, 09/25/14) ROS Limited/Unobtainable: No Constitutional: Reports: no symptoms HEENT: Reports: no symptoms Cardiovascular: Reports: no symptoms Respiratory: Reports: cough Gastrointestinal/Abdominal: Reports: no symptoms Genitourinary: Reports: no symptoms 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: Reports: no symptoms Subjective 43 YO F admitted with cough, now pneumonia. Cover for Int Med-DR Gonzalez Objective Last Vital Signs Date Time Temp Pulse Resp B/P (MAP) Pulse Ox O2 Delivery O2 Flow Rate FiO2 10/13/18 12:00 97.8 101 18 154/90 (111) 100 10/13/18 09:18 Room Air 21 General Appearance: WD/WN, no apparent distress, alert EENT: PERRL/EOMI, normal ENT inspection, TMs normal Neck: non-tender, normal alignment, supple, normal inspection Cardiovascular: normal peripheral pulses, normal rate, regular rhythm, no gallop/murmur, no JVD Respiratory/Chest: no respiratory distress, no accessory muscle use, decreased breath sounds, crackles/rales, expiratory wheezing Abdomen: normal bowel sounds, non tender, soft, no organomegaly, no mass Extremities: normal range of motion, non-tender Edema: trace edema 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 Resulted 10/11/18 15:50 Nasal Nares Influenza Types A,B Antigen (CASSANDRA) - Final Complete 10/11/18 17:15 Urine,Clean Catch Urine Culture - Final Lactobacillus Species Complete Intake and Output 10/12/18 10/13/18 19:00 07:00 Intake Total 690 ml 250 ml Balance 690 ml 250 ml Intake Oral 690 ml 250 ml # Voids 2 2 # Bowel Movements 1 Assessment/Plan Problem List: (1) Community acquired pneumonia Assessment & Plan: Continue levaquin (2) Systemic lupus Assessment & Plan: continue plaquenil. (3) Migraine (4) Multiple sclerosis (5) Hypertension Assessment & Plan: Uncontrolled. Not on antihypertensive med at home. Continue clonidine prn (6) Asthma (7) Obesity Status: not improved Leonid Salmeron MD Oct 13, 2018 16:03
[2018-10-13] MEDS ORDERED: Flonase Nasal Inhaler 16gm NASAL SCH (18:00)
--- NOTE | 2018-10-13 18:58 | NUR ---
NURSE NOTES: resting in bed. in no distress.
--- NOTE | 2018-10-13 19:21 | NUR ---
HAND-OFF: Report given to Cecilia MCCLOUD RN.
--- NOTE | 2018-10-13 19:30 | NUR ---
NURSE NOTES: Received report from outgoing RN Shirin. Pt VSS laying supine in bed, A&O x 4. IV site, right femoral C/D/I. Pt refusing Heparin, stating that she ambulates every shift. Potential risks of refusing heparin explained to pt and pt expresses understanding. Pt expressed difficulty breathing. RT called and will administer breathing treatment. Call light in reach, bed in lowest position, side rails up x 2. Will continue to monitor.
[2018-10-13] MEDS: Dyna-Hex 2% Top Sol 2oz TOPIC SCH (19:38)
--- NOTE | 2018-10-13 21:34 | NUR ---
Pt c/o SOB, nasal congestion, difficulty breathing post breathing treatment and increased cough. O2 95% room air. Dr. Lainez notified. Phenergan Codeine, cough syrup increased to Q6 PRN cough. Will continue to monitor pt.
--- NOTE | 2018-10-13 22:00 | NUR ---
NURSE NOTES: Pt requested Afrin nasal spray. Dr. Lainez notified and approved order. Pt states relief from nasal congestion after initial dose. Will continue to monitor.
[2018-10-13] MEDS ORDERED: Tubing IV Secondary IV ONE (22:45)
[2018-10-13] MEDS: Oxymetazoline 0.05% Na Spray 30ml NASAL SCH (23:01)
[2018-10-14] VITALS: BP 165/94
[2018-10-14] MEDS: Promethazine/Codeine 5ml UD ORAL PRN ×2 (03:44→21:27)
[2018-10-14] MEDS: Albuterol/Ipratropium 3ml neb HHN PRN ×4 (03:45→23:45)
[2018-10-14 04:00] VITALS: BP 157/94
[2018-10-14 06:48] LABS: BASOPHILS % (AUTO) 1.8 % (0.0-2.0); EOSINOPHILS % (AUTO) 1.7 % (0.0-3.0); HEMATOCRIT 27.2 % (37.0-47.0); HEMOGLOBIN 8.6 G/DL (12.0-16.0); LYMPHOCYTES % (AUTO) 33.6 % (20.0-45.0); MEAN CORPUSCULAR VOLUME 81 FL (80-99); MONOCYTES % (AUTO) 4.5 % (1.0-10.0); NEUTROPHILS % (AUTO) 58.3 % (45.0-75.0); PLATELET COUNT 256 K/UL (150-450); RED BLOOD COUNT 3.35 M/UL (4.20-5.40); RED CELL DISTRIBUTION WIDTH 14.2 % (11.6-14.8); WHITE BLOOD COUNT 9.6 K/UL (4.8-10.8)
[2018-10-14 07:03] LABS: LACTATE DEHYDROGENASE 271 U/L (81-234)
--- NOTE | 2018-10-14 07:37 | NUR ---
HAND-OFF: Report given to Radha LIU. Pt is stable.
--- NOTE | 2018-10-14 07:53 | NUR ---
NURSE NOTES: Patient received in stable condition, sleeping in bed. Breathing unlabored on room air, no s/s of respiratory distress noted. No s/s of pain or discomfort observed. No coughing observed during time of hand off. IV site on R femoral, no signs of complication observed. Bed locked and set in low position, call light within reach. Will continue to monitor.
[2018-10-14 08:00] VITALS: BP 150/100
[2018-10-14 08:13] LABS: % IRON SATURATION 13 % (15-50); IRON 29 ug/dL (50-175); TOTAL IRON BINDING CAPACITY 227 ug/dL (250-450)
[2018-10-14] MEDS: guaiFENesin ER 600mg tab ORAL SCH ×2 (09:00→17:40)
[2018-10-14] MEDS: Heparin 5000 units/ml inj SUBQ SCH ×2 (09:00→21:00)
[2018-10-14] MEDS: Oxymetazoline 0.05% Na Spray 30ml NASAL SCH ×2 (09:31→17:16)
[2018-10-14] MEDS: Levofloxacin 500mg tab ORAL SCH (09:31)
[2018-10-14 12:00] VITALS: BP 151/95
--- NOTE | 2018-10-14 12:18 | NUR ---
CASE MANAGEMENT:REVIEW 10/13/18 SI: PNEUMONIA. BRONCHOSPASM 98.1 90 18 180/115 100% ON RA IS: LEVAQUIN PO QD CLONIDINE PO Q4HRS PRN FLONASE SPRAY BID HEPARIN SQ Q12 DUONEB HHN Q4HRS PRN IV MORPHINE Q4HRS PRN : MED/SURG STATUS 3 [facility] 10/14/18 SI: PNEUMONIA. BRONCHOSPASM 97.9 83 17 150/100 97% ON RA H/H-8.6/27.2 IS: AFRIN NASAL BID LEVAQUIN PO QD CLONIDINE PO Q4HRS PRN HEPARIN SQ Q12 DUONEB HHN Q4HRS PRN IV MORPHINE Q4HRS PRN : MED/SURG STATUS 3 [facility]
--- NOTE | 2018-10-14 14:42 | Internal Med Progress Note ---
Subjective Date of Service: Oct 14, 2018 Physician Name Leonid Salmeron Attending Physician Jason Gonzalez MD Current Medications Medications (Trade) Dose Ordered Sig/Aileen Route PRN Reason Start Time Stop Time Status Last Admin Dose Admin Acetaminophen (Tylenol) 650 mg Q4H PRN ORAL FEVER (temp>100.5F) 10/12/18 18:00 11/10/18 17:59 Albuterol/ Ipratropium (Albuterol/ Ipratropium) 3 ml Q4H PRN HHN Shortness of Breath 10/12/18 18:00 10/16/18 17:59 10/14/18 08:51 Chlorhexidine Gluconate (Ann-Hex 2%) 1 applic DAILY@2000 TOPIC 10/12/18 20:00 11/11/18 19:59 10/13/18 19:38 Clonidine HCl (Catapres Tab) 0.1 mg Q4H PRN ORAL For High Blood Pressure 10/13/18 16:30 11/12/18 16:29 10/14/18 00:26 Dextrose (Dextrose 50%) 25 ml Q30M PRN IV Hypoglycemia 10/12/18 16:00 11/10/18 17:59 Dextrose (Dextrose 50%) 50 ml Q30M PRN IV Hypoglycemia 10/12/18 16:00 11/10/18 17:59 Guaifenesin (Mucinex ER) 600 mg TWICE A DAY ORAL 10/12/18 18:00 11/11/18 17:59 10/13/18 08:36 Heparin Sodium (Porcine) (Heparin 5000 units/ml) 5,000 units EVERY 12 HOURS SUBQ 10/12/18 21:00 11/10/18 20:59 Levofloxacin (Levaquin) 500 mg DAILY ORAL 10/13/18 09:00 10/19/18 10:59 10/14/18 09:31 Morphine Sulfate (Morphine Sulfate) 2 mg Q4H PRN IVP Severe Pain (Pain Scale 7-10) 10/12/18 18:00 10/18/18 17:59 10/13/18 19:38 Ondansetron HCl (Zofran) 4 mg Q6H PRN IVP Nausea & Vomiting 10/12/18 18:00 11/10/18 17:59 Oxymetazoline HCl (Afrin Nasal [place]) 1 spray BID NASAL 10/13/18 22:30 11/12/18 22:29 10/14/18 09:31 Polyethylene Glycol (Miralax) 17 gm DAILYPRN PRN ORAL Constipation 10/12/18 18:00 11/10/18 17:59 Promethazine HCl/ Codeine (Phenergan with Codeine) 10 ml Q6H PRN ORAL For Cough 10/13/18 21:30 11/12/18 21:29 10/14/18 03:44 Temazepam (Restoril) 15 mg HSPRN PRN ORAL Insomnia 10/13/18 12:45 10/20/18 12:44 10/13/18 23:17 Allergies: Coded Allergies: CARBAMAZEPINE (Unverified Allergy, Unknown, 09/25/14) ROS Limited/Unobtainable: No Constitutional: Reports: no symptoms HEENT: Reports: no symptoms Cardiovascular: Reports: no symptoms Respiratory: Reports: cough, shortness of breath Gastrointestinal/Abdominal: Reports: no symptoms Genitourinary: Reports: no symptoms 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: Reports: no symptoms Subjective 43 YO F admitted with cough, now pneumonia. Cover for Int Med-DR Gonzalez Objective Last Vital Signs Date Time Temp Pulse Resp B/P (MAP) Pulse Ox O2 Delivery O2 Flow Rate FiO2 10/14/18 12:00 98.1 86 18 151/95 (113) 98 10/14/18 09:00 Room Air 10/14/18 08:59 21 Laboratory Tests Test 10/14/18 06:30 10/14/18 06:50 White Blood Count 9.6 K/UL (4.8-10.8) Red Blood Count 3.35 M/UL (4.20-5.40) L Hemoglobin 8.6 G/DL (12.0-16.0) L Hematocrit 27.2 % (37.0-47.0) L Mean Corpuscular Volume 81 FL (80-99) Mean Corpuscular Hemoglobin 25.7 PG (27.0-31.0) L Mean Corpuscular Hemoglobin Concent 31.7 G/DL (32.0-36.0) L Red Cell Distribution Width 14.2 % (11.6-14.8) Platelet Count 256 K/UL (150-450) Mean Platelet Volume 6.1 FL (6.5-10.1) L Neutrophils (%) (Auto) 58.3 % (45.0-75.0) Lymphocytes (%) (Auto) 33.6 % (20.0-45.0) Monocytes (%) (Auto) 4.5 % (1.0-10.0) Eosinophils (%) (Auto) 1.7 % (0.0-3.0) Basophils (%) (Auto) 1.8 % (0.0-2.0) Differential Total Cells Counted 100 Neutrophils % (Manual) 57 % (45-75) Lymphocytes % (Manual) 37 % (20-45) Monocytes % (Manual) 6 % (1-10) Eosinophils % (Manual) 0 % (0-3) Basophils % (Manual) 0 % (0-2) Band Neutrophils 0 % (0-8) Reactive Lymphocytes Occasional Platelet Estimate Adequate Platelet Morphology Normal Hypochromasia 1+ Anisocytosis 1+ Erythrocyte Sedimentation Rate 71 MM/HR (0-20) H Reticulocyte Count 0.4 % (0.0-2.0) Prothrombin Time 10.5 SEC (9.30-11.50) Prothromb Time International Ratio 1.0 (0.9-1.1) Activated Partial Thromboplast Time 22 SEC (23-33) L Iron Level 29 ug/dL (50-175) L Total Iron Binding Capacity 227 ug/dL (250-450) L Percent Iron Saturation 13 % (15-50) L Unsaturated Iron Binding 198 ug/dL (112-346) Lactate Dehydrogenase 271 U/L (81-234) H Carcinoembryonic Antigen Pending Vitamin B12 Level > 2000 PG/ML (193-986) H Folate 9.6 NG/ML (8.6-58.9) Stool Occult Blood Negative (NEGATIVE) Microbiology Date/Time Source Procedure Growth Status 10/11/18 15:50 Blood Blood Culture - Preliminary NO GROWTH AFTER 48 HOURS Resulted 10/11/18 15:50 Blood Blood Culture - Preliminary NO GROWTH AFTER 48 HOURS Resulted 10/12/18 16:50 Nasal Nares MRSA Culture - Final NO METHICILLIN RESISTANT STAPH AUREUS... Complete 10/11/18 18:25 Sputum Gram Stain - Final Complete 10/11/18 18:25 Sputum Sputum Culture - Final NORMAL UPPER RESPIRATORY BAY PRESENT Complete 10/11/18 15:50 Nasal Nares Influenza Types A,B Antigen (CASSANDRA) - Final Complete 10/11/18 17:15 Urine,Clean Catch Urine Culture - Final Lactobacillus Species Complete 10/12/18 16:50 Rectum VRE Culture - Final NO VANCOMYCIN RESISTANT ENTEROCOCCUS ... Resulted 10/12/18 16:50 Rectum Pending Resulted Intake and Output 10/13/18 10/14/18 19:00 07:00 Intake Total 750 ml 360 ml Balance 750 ml 360 ml Intake Oral 750 ml 360 ml # Voids 2 2 Objective General Appearance: WD/WN, no apparent distress, alert EENT: PERRL/EOMI, normal ENT inspection, TMs normal Neck: non-tender, normal alignment, supple, normal inspection Cardiovascular: normal peripheral pulses, normal rate, regular rhythm, no gallop/murmur, no JVD Respiratory/Chest: no respiratory distress, no accessory muscle use, decreased breath sounds, crackles/rales, expiratory wheezing Abdomen: normal bowel sounds, non tender, soft, no organomegaly, no mass Extremities: normal range of motion, non-tender Edema: trace edema 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 (3) Migraine (4) Multiple sclerosis (5) Hypertension Assessment & Plan: Not on antihypertensive med at home. Continue clonidine prn (6) Asthma (7) Obesity Status: progressing Leonid Salmeron MD Oct 14, 2018 14:42
--- NOTE | 2018-10-14 15:49 | Pulmonology Progress Note ---
Assessment/Plan Problems: (1) Pneumonia (2) History of asthma (3) History of systemic lupus erythematosus (SLE) Assessment/Plan improving titrate fio2 to sat of 92% continue abx respiratory treatment check electrolytes Subjective ROS Limited/Unobtainable: No Constitutional: Reports: no symptoms HEENT: Repors: no symptoms Allergies: Coded Allergies: CARBAMAZEPINE (Unverified Allergy, Unknown, 09/25/14) Objective Last 24 Hour Vital Signs Date Time Temp Pulse Resp B/P (MAP) Pulse Ox O2 Delivery O2 Flow Rate FiO2 10/14/18 12:00 98.1 86 18 151/95 (113) 98 10/14/18 09:00 Room Air 10/14/18 08:59 96 20 99 Room Air 21 10/14/18 08:52 96 18 97 Room Air 21 10/14/18 08:52 96 18 Room Air 21 10/14/18 08:00 97.9 83 17 150/100 (117) 97 10/14/18 04:00 98.3 92 18 157/94 (115) 96 10/14/18 04:00 84 20 100 Room Air 21 10/14/18 03:46 77 18 97 Room Air 21 10/14/18 00:26 165/94 10/14/18 00:00 99.1 92 19 165/94 (117) 96 10/13/18 21:00 Room Air 10/13/18 20:37 87 20 99 Room Air 21 10/13/18 20:30 85 18 98 Room Air 21 10/13/18 20:30 85 18 Room Air 21 10/13/18 20:08 98.2 10/13/18 20:03 98.2 90 18 139/96 (110) 97 10/13/18 17:30 98.3 90 18 168/104 (125) 100 10/13/18 16:33 180/115 10/13/18 16:00 98.1 90 18 180/115 (136) 100 Intake and Output 10/13/18 10/14/18 19:00 07:00 Intake Total 750 ml 360 ml Balance 750 ml 360 ml Intake Oral 750 ml 360 ml # Voids 2 2 General Appearance: WD/WN HEENT: normocephalic, atraumatic Respiratory/Chest: chest wall non-tender, lungs clear Breasts: no masses Cardiovascular: normal peripheral pulses, normal rate Abdomen: normal bowel sounds, soft, non tender Genitourinary: normal external genitalia Extremities: no cyanosis 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 Complete 10/11/18 18:25 Sputum Gram Stain - Final Complete 10/11/18 18:25 Sputum Sputum Culture - Final NORMAL UPPER RESPIRATORY BAY PRESENT Complete 10/11/18 15:50 Nasal Nares Influenza Types A,B Antigen (CASSANDRA) - Final Complete 10/11/18 17:15 Urine,Clean Catch Urine Culture - Final Lactobacillus Species Complete 10/12/18 16:50 Rectum VRE Culture - Final NO VANCOMYCIN RESISTANT ENTEROCOCCUS ... Resulted 10/12/18 16:50 Rectum Pending Resulted Laboratory Tests 10/14/18 06:30: White Blood Count 9.6, Red Blood Count 3.35L, Hemoglobin 8.6L, Hematocrit 27.2L , Mean Corpuscular Volume 81, Mean Corpuscular Hemoglobin 25.7L, Mean Corpuscular Hemoglobin Concent 31.7L, Red Cell Distribution Width 14.2, Platelet Count 256, Mean Platelet Volume 6.1L, Neutrophils (%) (Auto) 58.3, Lymphocytes (%) (Auto) 33.6, Monocytes (%) (Auto) 4.5, Eosinophils (%) (Auto) 1.7, Basophils (%) (Auto) 1.8, Differential Total Cells Counted 100, Neutrophils % (Manual) 57, Lymphocytes % (Manual) 37, Monocytes % (Manual) 6, Eosinophils % (Manual) 0, Basophils % (Manual) 0, Band Neutrophils 0, Reactive Lymphocytes Occasional, Platelet Estimate Adequate, Platelet Morphology Normal, Hypochromasia 1+, Anisocytosis 1+, Erythrocyte Sedimentation Rate 71H, Reticulocyte Count 0.4, Prothrombin Time 10.5, Prothromb Time International Ratio 1.0, Activated Partial Thromboplast Time 22L, Iron Level 29L, Total Iron Binding Capacity 227L, Percent Iron Saturation 13L, Unsaturated Iron Binding 198 , Lactate Dehydrogenase 271H, Carcinoembryonic Antigen [Pending], Vitamin B12 Level > 2000H, Folate 9.6 10/14/18 06:50: Stool Occult Blood Negative Current Medications Medications (Trade) Dose Ordered Sig/Aileen Route PRN Reason Start Time Stop Time Status Last Admin Dose Admin Acetaminophen (Tylenol) 650 mg Q4H PRN ORAL FEVER (temp>100.5F) 10/12/18 18:00 11/10/18 17:59 Albuterol/ Ipratropium (Albuterol/ Ipratropium) 3 ml Q4H PRN HHN Shortness of Breath 10/12/18 18:00 10/16/18 17:59 10/14/18 08:51 Chlorhexidine Gluconate (Ann-Hex 2%) 1 applic DAILY@2000 TOPIC 10/12/18 20:00 11/11/18 19:59 10/13/18 19:38 Clonidine HCl (Catapres Tab) 0.1 mg Q4H PRN ORAL For High Blood Pressure 10/13/18 16:30 11/12/18 16:29 10/14/18 00:26 Dextrose (Dextrose 50%) 25 ml Q30M PRN IV Hypoglycemia 10/12/18 16:00 11/10/18 17:59 Dextrose (Dextrose 50%) 50 ml Q30M PRN IV Hypoglycemia 10/12/18 16:00 11/10/18 17:59 Guaifenesin (Mucinex ER) 600 mg TWICE A DAY ORAL 10/12/18 18:00 11/11/18 17:59 10/13/18 08:36 Heparin Sodium (Porcine) (Heparin 5000 units/ml) 5,000 units EVERY 12 HOURS SUBQ 10/12/18 21:00 11/10/18 20:59 Levofloxacin (Levaquin) 500 mg DAILY ORAL 10/13/18 09:00 10/19/18 10:59 10/14/18 09:31 Morphine Sulfate (Morphine Sulfate) 2 mg Q4H PRN IVP Severe Pain (Pain Scale 7-10) 10/12/18 18:00 10/18/18 17:59 10/13/18 19:38 Ondansetron HCl (Zofran) 4 mg Q6H PRN IVP Nausea & Vomiting 10/12/18 18:00 11/10/18 17:59 Oxymetazoline HCl (Afrin Nasal [place]) 1 spray BID NASAL 10/13/18 22:30 11/12/18 22:29 10/14/18 09:31 Polyethylene Glycol (Miralax) 17 gm DAILYPRN PRN ORAL Constipation 10/12/18 18:00 11/10/18 17:59 Promethazine HCl/ Codeine (Phenergan with Codeine) 10 ml Q6H PRN ORAL For Cough 10/13/18 21:30 11/12/18 21:29 10/14/18 03:44 Temazepam (Restoril) 15 mg HSPRN PRN ORAL Insomnia 10/13/18 12:45 10/20/18 12:44 10/13/18 23:17 Kadeem Lainez MD Oct 14, 2018 15:49
[2018-10-14 16:00] VITALS: BP 146/96
[2018-10-14] MEDS: Morphine Sulfate 4mg/ml Inj (IV/IM USE ONLY) IVP PRN (17:17)
--- NOTE | 2018-10-14 19:40 | NUR ---
NURSE NOTES: Received report from outgoing RN Radha. Pt is stable, A&O x 4, laying supine in bed. No signs of pain or distress. IV right femoral C/D/I. Pt significant other at bedside. Call light in reach, bed in lowest position, side rails up x2. Will continue to monitor pt.
[2018-10-14 20:00] VITALS: BP 168/104
[2018-10-14] MEDS: Dyna-Hex 2% Top Sol 2oz TOPIC SCH (21:28)
[2018-10-15] VITALS: BP 150/99
[2018-10-15] MEDS: Morphine Sulfate 4mg/ml Inj (IV/IM USE ONLY) IVP PRN ×2 (03:14→08:47)
[2018-10-15 04:00] VITALS: BP 150/95
[2018-10-15 06:13] LABS: BASOPHILS % (AUTO) 1.5 % (0.0-2.0); EOSINOPHILS % (AUTO) 1.5 % (0.0-3.0); HEMATOCRIT 28.1 % (37.0-47.0); HEMOGLOBIN 9.1 G/DL (12.0-16.0); LYMPHOCYTES % (AUTO) 28.6 % (20.0-45.0); MEAN CORPUSCULAR VOLUME 80 FL (80-99); MONOCYTES % (AUTO) 5.1 % (1.0-10.0); NEUTROPHILS % (AUTO) 63.3 % (45.0-75.0); PLATELET COUNT 296 K/UL (150-450); WHITE BLOOD COUNT 9.9 K/UL (4.8-10.8)
[2018-10-15 06:29] LABS: ANION GAP 10 mmol/L (5-15); BLOOD UREA NITROGEN 8 mg/dL (7-18); CALCIUM 8.3 MG/DL (8.5-10.1); CARBON DIOXIDE 26 MMOL/L (21-32); CHLORIDE 103 MMOL/L (98-107); CREATININE 0.9 MG/DL (0.55-1.30); POTASSIUM 3.1 MMOL/L (3.5-5.1); SODIUM 139 MMOL/L (136-145)
[2018-10-15 08:00] VITALS: BP 154/102
[2018-10-15] MEDS: Levofloxacin 500mg tab ORAL SCH (08:39)
[2018-10-15] MEDS: guaiFENesin ER 600mg tab ORAL SCH (08:55)
[2018-10-15] MEDS: Heparin 5000 units/ml inj SUBQ SCH (08:55)
[2018-10-15] MEDS: Oxymetazoline 0.05% Na Spray 30ml NASAL SCH (09:23)
--- NOTE | 2018-10-15 10:30 | Infectious Diseases Prog Note ---
Assessment/Plan Assessment/Plan 43 y/o F with hx of SLE (inactive for years) on Plaquenil and prednisone, Migraine Headaches, MS, Asthma, s/p b/l tubal ligation presents to ED on 10/11/18 with worsening productive cough, congestion, body aches, SOB, f/c. CAP, likely complication of viral URI, Suspect asthma exacerbation contributing -influenz sc neg -CXR - read pending -SCx pend - On Abx for HAP Fever - resolved Leukocytosis (on high dose steroids) SLE on Plaquenil and steroids Migraine Headaches MS Plan: - Continue levofloxacin PO 500mg Qday #/ (End date 10/17/18) - 10/12/17 SP Cefepime and Vancomcyin #1- f/u cx - f/u CXR - Monitor CBC/CMP, temperatures - Aspiration precautions Thank you for this consult. We will continue to follow the patient during this hospitalization. Subjective Allergies: Coded Allergies: CARBAMAZEPINE (Unverified Allergy, Unknown, 09/25/14) Subjective Patient remains aferbile and on RA No leukocytosis Objective Vital Signs Last 24 Hour Vital Signs Date Time Temp Pulse Resp B/P (MAP) Pulse Ox O2 Delivery O2 Flow Rate FiO2 10/15/18 09:17 98.4 10/15/18 09:00 Room Air 10/15/18 08:37 96 16 Room Air 21 10/15/18 08:00 99.2 93 18 154/102 (119) 94 10/15/18 04:00 98.4 95 18 150/95 (113) 95 10/15/18 00:00 98.6 93 18 150/99 (116) 96 10/14/18 23:55 81 20 98 Room Air 21 10/14/18 23:45 79 20 96 Room Air 21 10/14/18 21:28 168/104 10/14/18 21:00 Room Air 10/14/18 20:42 92 20 Room Air 21 10/14/18 20:00 98.6 104 18 168/104 (125) 96 10/14/18 16:00 98.2 85 17 146/96 (113) 98 10/14/18 15:58 89 20 99 Room Air 21 10/14/18 15:51 101 18 97 Room Air 21 10/14/18 12:00 98.1 86 18 151/95 (113) 98 Height (Feet): 5 Height (Inches): 1.00 Weight (Pounds): 175 Objective Gen: NAD HEENT: NCAT, MMM, EOM LUNGS: No Wheezing, No Accessory muscle use CARDS: RRR, S1, S2, No M/R/G, ABD: Soft, NT, ND, + BS NEURO: A/O x 4, Strength and Sensation Grossly intact Microbiology Date/Time Source Procedure Growth Status 10/12/18 16:50 Nasal Nares MRSA Culture - Final NO METHICILLIN RESISTANT STAPH AUREUS... Complete 10/12/18 16:50 Rectum VRE Culture - Final NO VANCOMYCIN RESISTANT ENTEROCOCCUS ... Complete 10/12/18 16:50 Rectum - Final NO CARBAPENEM-RESISTANT ENTEROBACTERI... Complete Laboratory Tests Test 10/15/18 05:30 White Blood Count 9.9 K/UL (4.8-10.8) Red Blood Count 3.50 M/UL (4.20-5.40) L Hemoglobin 9.1 G/DL (12.0-16.0) L Hematocrit 28.1 % (37.0-47.0) L Mean Corpuscular Volume 80 FL (80-99) Mean Corpuscular Hemoglobin 25.8 PG (27.0-31.0) L Mean Corpuscular Hemoglobin Concent 32.2 G/DL (32.0-36.0) Red Cell Distribution Width 14.0 % (11.6-14.8) Platelet Count 296 K/UL (150-450) Mean Platelet Volume 6.4 FL (6.5-10.1) L Neutrophils (%) (Auto) 63.3 % (45.0-75.0) Lymphocytes (%) (Auto) 28.6 % (20.0-45.0) Monocytes (%) (Auto) 5.1 % (1.0-10.0) Eosinophils (%) (Auto) 1.5 % (0.0-3.0) Basophils (%) (Auto) 1.5 % (0.0-2.0) Sodium Level 139 MMOL/L (136-145) Potassium Level 3.1 MMOL/L (3.5-5.1) L Chloride Level 103 MMOL/L (98-107) Carbon Dioxide Level 26 MMOL/L (21-32) Anion Gap 10 mmol/L (5-15) Blood Urea Nitrogen 8 mg/dL (7-18) Creatinine 0.9 MG/DL (0.55-1.30) Estimat Glomerular Filtration Rate > 60 mL/min (>60) Glucose Level 81 MG/DL (74-106) Calcium Level 8.3 MG/DL (8.5-10.1) L Current Medications Medications (Trade) Dose Ordered Sig/Aileen Route PRN Reason Start Time Stop Time Status Last Admin Dose Admin Acetaminophen (Tylenol) 650 mg Q4H PRN ORAL FEVER (temp>100.5F) 10/12/18 18:00 11/10/18 17:59 Albuterol/ Ipratropium (Albuterol/ Ipratropium) 3 ml Q4H PRN HHN Shortness of Breath 10/12/18 18:00 10/16/18 17:59 10/14/18 23:45 Chlorhexidine Gluconate (Ann-Hex 2%) 1 applic DAILY@2000 TOPIC 10/12/18 20:00 11/11/18 19:59 10/14/18 21:28 Clonidine HCl (Catapres Tab) 0.1 mg Q4H PRN ORAL For High Blood Pressure 10/13/18 16:30 11/12/18 16:29 10/14/18 21:28 Dextrose (Dextrose 50%) 25 ml Q30M PRN IV Hypoglycemia 10/12/18 16:00 11/10/18 17:59 Dextrose (Dextrose 50%) 50 ml Q30M PRN IV Hypoglycemia 10/12/18 16:00 11/10/18 17:59 Guaifenesin (Mucinex ER) 600 mg TWICE A DAY ORAL 10/12/18 18:00 11/11/18 17:59 10/13/18 08:36 Heparin Sodium (Porcine) (Heparin 5000 units/ml) 5,000 units EVERY 12 HOURS SUBQ 10/12/18 21:00 11/10/18 20:59 Hydroxychloroquine Sulfate (Plaquenil) 400 mg DAILY ORAL 10/15/18 09:00 11/14/18 08:59 10/15/18 08:39 Levofloxacin (Levaquin) 500 mg DAILY ORAL 10/13/18 09:00 10/19/18 10:59 10/15/18 08:39 Morphine Sulfate (Morphine Sulfate) 2 mg Q4H PRN IVP Severe Pain (Pain Scale 7-10) 10/12/18 18:00 10/18/18 17:59 10/15/18 08:47 Ondansetron HCl (Zofran) 4 mg Q6H PRN IVP Nausea & Vomiting 10/12/18 18:00 11/10/18 17:59 Oxymetazoline HCl (Afrin Nasal [place]) 1 spray BID NASAL 10/13/18 22:30 11/12/18 22:29 10/15/18 09:23 Polyethylene Glycol (Miralax) 17 gm DAILYPRN PRN ORAL Constipation 10/12/18 18:00 11/10/18 17:59 Promethazine HCl/ Codeine (Phenergan with Codeine) 10 ml Q6H PRN ORAL For Cough 10/13/18 21:30 11/12/18 21:29 10/14/18 21:27 Temazepam (Restoril) 15 mg HSPRN PRN ORAL Insomnia 10/13/18 12:45 10/20/18 12:44 10/13/18 23:17 Matthias Flores MD Oct 15, 2018 10:30
--- NOTE | 2018-10-15 11:18 | NUR ---
CASE MANAGEMENT: REVIEW SI: PNA T 99.2 HR 93 RR 16 BP 154/102 SAT 94% ROOM AIR H/H 9.1/28.1 K 3.1 ANNA 8.3 IS: PLAQUENIL PO QD LEVAQUIN PO QD MED/SURG STATUS DCP: PATIENT IS FROM HOME
[2018-10-15 12:00] VITALS: BP 155/97
--- NOTE | 2018-10-15 12:18 | NUR ---
CHARGE NURSE NOTE: BP runs high - last BP 155/97. notified, message left.
[2018-10-15] MEDS ORDERED: LEVAQUIN500 MG ORAL (12:22)
--- NOTE | 2018-10-15 12:34 | Pulmonology Progress Note ---
Assessment/Plan Problems: (1) Pneumonia (2) History of asthma (3) History of systemic lupus erythematosus (SLE) Assessment/Plan pt wants to get discharged improving titrate fio2 to sat of 92% continue abx respiratory treatment check electrolytes three more days of oral antibiotics Subjective ROS Limited/Unobtainable: No Constitutional: Reports: no symptoms HEENT: Repors: no symptoms Respiratory: Reports: no symptoms Allergies: Coded Allergies: CARBAMAZEPINE (Unverified Allergy, Unknown, 09/25/14) Objective Last 24 Hour Vital Signs Date Time Temp Pulse Resp B/P (MAP) Pulse Ox O2 Delivery O2 Flow Rate FiO2 10/15/18 12:00 97.7 82 18 155/97 (116) 94 10/15/18 09:17 98.4 10/15/18 09:00 Room Air 10/15/18 08:37 96 16 Room Air 21 10/15/18 08:00 99.2 93 18 154/102 (119) 94 10/15/18 04:00 98.4 95 18 150/95 (113) 95 10/15/18 00:00 98.6 93 18 150/99 (116) 96 10/14/18 23:55 81 20 98 Room Air 21 10/14/18 23:45 79 20 96 Room Air 21 10/14/18 21:28 168/104 10/14/18 21:00 Room Air 10/14/18 20:42 92 20 Room Air 21 10/14/18 20:00 98.6 104 18 168/104 (125) 96 10/14/18 16:00 98.2 85 17 146/96 (113) 98 10/14/18 15:58 89 20 99 Room Air 21 10/14/18 15:51 101 18 97 Room Air 21 Intake and Output 10/14/18 10/15/18 19:00 07:00 Intake Total 300 ml 350 ml Balance 300 ml 350 ml Intake Oral 300 ml 350 ml # Voids 2 2 # Bowel Movements 1 General Appearance: WD/WN HEENT: normocephalic, anicteric Respiratory/Chest: chest wall non-tender, lungs clear Breasts: no masses Cardiovascular: normal rate, no JVD Abdomen: normal bowel sounds Genitourinary: normal external genitalia Extremities: no clubbing Microbiology Date/Time Source Procedure Growth Status 10/12/18 16:50 Nasal Nares MRSA Culture - Final NO METHICILLIN RESISTANT STAPH AUREUS... Complete 10/12/18 16:50 Rectum VRE Culture - Final NO VANCOMYCIN RESISTANT ENTEROCOCCUS ... Complete 10/12/18 16:50 Rectum - Final NO CARBAPENEM-RESISTANT ENTEROBACTERI... Complete Laboratory Tests 10/15/18 05:30: White Blood Count 9.9, Red Blood Count 3.50L, Hemoglobin 9.1L, Hematocrit 28.1L , Mean Corpuscular Volume 80, Mean Corpuscular Hemoglobin 25.8L, Mean Corpuscular Hemoglobin Concent 32.2, Red Cell Distribution Width 14.0, Platelet Count 296, Mean Platelet Volume 6.4L, Neutrophils (%) (Auto) 63.3, Lymphocytes ( %) (Auto) 28.6, Monocytes (%) (Auto) 5.1, Eosinophils (%) (Auto) 1.5, Basophils (%) (Auto) 1.5, Sodium Level 139, Potassium Level 3.1L, Chloride Level 103, Carbon Dioxide Level 26, Anion Gap 10, Blood Urea Nitrogen 8, Creatinine 0.9, Estimat Glomerular Filtration Rate > 60, Glucose Level 81, Calcium Level 8.3L Current Medications Medications (Trade) Dose Ordered Sig/Aileen Route PRN Reason Start Time Stop Time Status Last Admin Dose Admin Acetaminophen (Tylenol) 650 mg Q4H PRN ORAL FEVER (temp>100.5F) 10/12/18 18:00 11/10/18 17:59 Albuterol/ Ipratropium (Albuterol/ Ipratropium) 3 ml Q4H PRN HHN Shortness of Breath 10/12/18 18:00 10/16/18 17:59 10/14/18 23:45 Chlorhexidine Gluconate (Ann-Hex 2%) 1 applic DAILY@2000 TOPIC 10/12/18 20:00 11/11/18 19:59 10/14/18 21:28 Clonidine HCl (Catapres Tab) 0.1 mg Q4H PRN ORAL For High Blood Pressure 10/13/18 16:30 11/12/18 16:29 10/14/18 21:28 Dextrose (Dextrose 50%) 25 ml Q30M PRN IV Hypoglycemia 10/12/18 16:00 11/10/18 17:59 Dextrose (Dextrose 50%) 50 ml Q30M PRN IV Hypoglycemia 10/12/18 16:00 11/10/18 17:59 Guaifenesin (Mucinex ER) 600 mg TWICE A DAY ORAL 10/12/18 18:00 11/11/18 17:59 10/13/18 08:36 Heparin Sodium (Porcine) (Heparin 5000 units/ml) 5,000 units EVERY 12 HOURS SUBQ 10/12/18 21:00 11/10/18 20:59 Hydroxychloroquine Sulfate (Plaquenil) 400 mg DAILY ORAL 10/15/18 09:00 11/14/18 08:59 10/15/18 08:39 Levofloxacin (Levaquin) 500 mg DAILY ORAL 10/13/18 09:00 10/19/18 10:59 10/15/18 08:39 Morphine Sulfate (Morphine Sulfate) 2 mg Q4H PRN IVP Severe Pain (Pain Scale 7-10) 10/12/18 18:00 10/18/18 17:59 10/15/18 08:47 Ondansetron HCl (Zofran) 4 mg Q6H PRN IVP Nausea & Vomiting 10/12/18 18:00 11/10/18 17:59 Oxymetazoline HCl (Afrin Nasal [place]) 1 spray BID NASAL 10/13/18 22:30 11/12/18 22:29 10/15/18 09:23 Polyethylene Glycol (Miralax) 17 gm DAILYPRN PRN ORAL Constipation 10/12/18 18:00 11/10/18 17:59 Promethazine HCl/ Codeine (Phenergan with Codeine) 10 ml Q6H PRN ORAL For Cough 10/13/18 21:30 11/12/18 21:29 10/14/18 21:27 Temazepam (Restoril) 15 mg HSPRN PRN ORAL Insomnia 10/13/18 12:45 10/20/18 12:44 10/13/18 23:17 Kadeem Lainez MD Oct 15, 2018 12:34
--- NOTE | 2018-10-15 13:00 | NUR ---
CHARGE NURSE NOTE: Spoke with , notified him about BP, no new orders were given. is discharging patient.
--- NOTE | 2018-10-15 14:05 | NUR ---
Discharge note: Pt is discharged home in stable condition by private car accompanied by spouse. Left femoral triple lumen cath. was removed, using aseptic technique in flat position, pressure applied. No bleeding, hematoma or inflammation noted. Belongings checked, cipro 500 mg poX3 days given. Pt will follow up with PCP.
--- NOTE | 2018-10-17 08:59 | Discharge Summary ---
Discharge Summary Discharge Summary _ DATE OF ADMISSION: 10/11/2018 DATE OF DISCHARGE: 10/15/2018 DISCHARGED BY: Dr. Gonzalez REASON FOR ADMISSION: 43 years old female with past medical history significant for t systemic lupus erythematosus ( on Plaquenil), migraine headache, multiple sclerosis, asthma, hypertension, morbid obesity, s/p bilateral tubal ligation, presented to emergency room complaining of productive cough associated with chest congestion , body aches and shortness of breath. Patient was recently discharged from [facility] after treatment for community-acquired pneumonia, status post antibiotic. Vital signs revealed fever 103.1. Pulse oximetry was 95% on room air. Laboratory workup revealed no leukocytosis, hemoglobin 9.5 hematocrit 29.1. Stable electrolytes , renal parameters and LFT. Troponin negative. Lactic acid 1.6. Urine toxicology screen was positive for marijuana. Urinalysis revealed +3 protein, no evidence of UTI. Chest x-ray revealed left lung base infiltrate versus atelectasis. Patient admitted with diagnoses of pneumonia, asthma with possible exacerbation, systemic lupus erythematosus, history of multiple sclerosis, migraine headaches, morbid obesity. CONSULTANTS: pulmonary Dr. Lainez ID specialist Dr. Chavarria [facility] COURSE: Patient admitted to medical surgical floor. Pulmonology and ID specialist closely followed. Patient started on broad-spectrum antibiotic with Levaquin. Antitussive provided as needed. Supplemental oxygen provided as needed to keep pulse oximetry above 92%. Pulmonary toilet provided [id number] and as needed. Decongestant /Mucinex provided. Nasal sprays ( Flonase and Afrin) initiated. DVT prophylaxis provided. Blood cultures were negative. Influenza screen test was negative. Sputum culture was negative. Urine culture revealed lactobacilli. Per Infectious disease specialist, patient had community-acquired pneumonia, likely complication of viral upper respiratory infection. Patient received 1 dose of steroid/Solumedrol / at ED, no further steroids were required. Pain management was addressed as needed. Home medications continued. Renal parameters and electrolytes were closely monitored. Nephrotoxins were avoided. Patient with evidence of proteinuria (+3 protein on urinalysis). Potassium corrected. Hemoglobin and hematocrit were closely monitored with goal to keep hemoglobin above 7, remained at the baseline. Anemia workup was consistent with anemia of chronic disease. B12 and folate were stable. Stool for occult blood was negative. CEA was within normal limits. Blood pressure was closely monitored and managed with current regimen. Patient will need 3 more days of oral antibiotics upon discharge , as per ID specialist recommendation. Patient clinically stabilized : fever resolved , no leukocytosis, no signs of respiratory distress. FINAL DIAGNOSES: Community-acquired pneumonia, likely complication of upper respiratory infection Asthma Systemic lupus erythematosus Multiple sclerosis Obesity Migraine headache Hypertension DISCHARGE MEDICATIONS: See Medication Reconciliation list. DISCHARGE INSTRUCTIONS: Patient was discharged home. Follow up with primary care provider in one week. I have been assigned to dictate discharge summary for this account. I was not involved in the patient's management. Viktoriya Rios NP Oct 17, 2018 08:59
--- NOTE | 2018-10-17 11:44 | NUR ---
INSURANCE ALL CLINICALS HAVE BEEN FAXED TO: EDITA ELLIS:NIA [facility]ING[facility] P:[phone] F:[phone] REF#[id number]
== END 2018-10-15 14:15 | disposition home or self-care (01) | DRG 139 ==
LOC: EMR 14:25 → 2E 15:30 → EDBEDREQ 15:59 → EDBEDREQSVC 16:02 → EDBEDREQ 16:13 → 3E 10-12 15:35
DX: J18.9 Pneumonia, unspecified organism (principal); M32.9 Systemic lupus erythematosus, unspecified; G35 Multiple sclerosis; J45.909 Unspecified asthma, uncomplicated; E66.9 Obesity, unspecified; G43.909 Migraine, unspecified, not intractable, without status migrainosus; I10 Essential (primary) hypertension; Z88.8 Allergy status to other drugs, medicaments and biological substances; Z68.33 Body mass index [BMI] 33.0-33.9, adult
CPT/HCPCS: 36415; 71045; 80048; 80053; 80069; 80307; 81003; 82270; 82378; 82550; 82553; 82607; 82746; 83540; 83550; 83605; 83615; 84443; 84484; 85007; 85025; 85044; 85060; 85610; 85651; 85730; 86710; 87040; 87070; 87081; 87086; 87205; 93005; 94640; 94664; 96361; 96365; 96368; 96375; 99285; J2405; J7620

== ENCOUNTER 2018-11-08 10:45 | Emergency (ER) | payer MEDICAID ==
[~2018-11-08] VITALS: Ht 154.9 cm; Wt 76.2 kg
[~2018-11-08 10:45] MED LIST changes: +LEVAQUIN500 MG ORAL
[2018-11-08 10:50] VITALS: BP 148/83
--- NOTE | 2018-11-08 10:50 | NUR ---
ED Nurse Note: pt present at er c/o 05/18 of rt rib cage pain upon coughing. pt reported she has been coughing since 10/18/18 with green or yellow sputum. pt sounds barking when she cough but no sputum noted yet. pt aao x4 cooperative, skin intact.
[2018-11-08] MEDS ORDERED: Ketorolac 30mg Inj IM ONE (11:00)
[2018-11-08] MEDS ORDERED: oxyCODONE HCL/Acetaminophen 5/325mg ORAL ONE (11:15)
[2018-11-08] MEDS ORDERED: Albuterol ud Inhalation HHN ONE (11:15)
--- NOTE | 2018-11-08 11:18 | Emergency Room Report ---
History of Present Illness General Chief Complaint: Flu Like Symptoms Source: Patient, Medical Record Present Illness HPI 43-year-old female history of lupus and asthma presents with a few days history of cough fever 101, clear sputum production, myalgias, feels like she may have hurt her R ribs from coughing, denies vomiting, diarrhea, no recent antibiotics , does report she tried steroid treatment recently when she had similar illness earlier this month. Allergies: Coded Allergies: CARBAMAZEPINE (Unverified Allergy, Unknown, 09/25/14) Patient History Past Medical History: see triage record Now: No Reviewed Nursing Documentation: PMH: Agreed; PSxH: Agreed Nursing Documentation-PMH Hx Cardiac Problems: No Hx Hypertension: No Hx Pacemaker: No Hx Asthma: Yes - PNA Hx COPD: No Hx Diabetes: No Hx Cancer: No Hx Gastrointestinal Problems: No Hx Dialysis: No Hx Neurological Problems: Yes - Lupus, MS Hx Cerebrovascular Accident: No Hx Seizures: No Review of Systems All Other Systems: negative except mentioned in HPI Physical Exam Vital Signs Date Time Temp Pulse Resp B/P (MAP) Pulse Ox O2 Delivery O2 Flow Rate FiO2 11/08/18 10:48 98.2 100 19 136/83 97 Room Air 11/08/18 10:50 99 Sp02 EP Interpretation: reviewed, normal General Appearance: no apparent distress, alert, non-toxic Head: normocephalic Eyes: bilateral eye normal inspection, bilateral eye PERRL, bilateral eye EOMI ENT: normal ENT inspection, hearing grossly normal, normal pharynx, no angioedema, normal voice, moist mucus membranes Neck: normal inspection, full range of motion, supple, supple/symm/no masses Respiratory: chest non-tender, lungs clear, normal breath sounds, no rhonchi, no respiratory distress, no retraction, no accessory muscle use, wheezing - Occasional scant Wheezing in upper airways bilaterally, chest symmetrical, palpation of chest normal Cardiovascular #1: normal peripheral pulses, regular rate, rhythm, no edema, no gallop, no JVD, no murmur, no rub Cardiovascular #2: 2+ radial (R), 2+ radial (L) Gastrointestinal: normal inspection, non tender, soft, no mass, no guarding, no rebound Rectal: deferred Genitourinary: normal inspection, no CVA tenderness Musculoskeletal: back normal, gait/station normal, normal range of motion, non- tender, no calf tenderness, Laurence's Sign negative Neurologic: alert, responsive, supervisor [employer]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 do not suspect PE given infectious symptoms, lack of dvt findings, no OCP use EKG Diagnostic Results EKG Time: 11:20 EP Interpretation: no stemi Rate: normal Rhythm: NSR ST Segments: no acute changes ASA given to the pt in ED: No Rhythm Strip Diag. Results Rhythm Strip Time: 11:27 EP Interpretation: yes Rate: 85 Rhythm: NSR, no PVC's, no ectopy Chest X-Ray Diagnostic Results Chest X-Ray Diagnostic Results : Chest X-Ray Ordered: Yes # of Views/Limited/Complete: 1 View Indication: Shortness of Breath EP Interpretation: Yes Interpretation: no consolidation, no effusion, no pneumothorax, no acute cardiopulmonary disease, other - R base lung nodule Impression: No acute disease Electronically Signed by: Laurence Fregoso MD Last Vital Signs Date Time Temp Pulse Resp B/P (MAP) Pulse Ox O2 Delivery O2 Flow Rate FiO2 11/08/18 10:50 98.2 98 19 148/83 99 Room Air 11/08/18 10:50 99 Disposition: HOME, SELF-CARE Condition: Stable Referrals: NON PHYSICIAN (PCP) LAURENCE FREGOSO M.D Nov 08, 2018 11:18
--- NOTE | 2018-11-08 11:52 | Diagnostic Imaging Report ---
Indication: Shortness of breath Technique: One view of the chest Comparison: 10/11/2018 Findings: There is suggestion of a 12 mm nodule in the right lung base. Ill-defined opacities are seen in the right mid lung, may reflect atelectasis or patchy infiltrate. The remainder the lungs are clear. The pleural spaces are clear. The heart size is normal Impression: Possible 12 mm right basilar lung nodule common duct calculi evident previously. Consider follow-up with chest CT Vague right midlung opacity, could represent focal infiltrate or some atelectasis. No acute process otherwise.
[2018-11-08 11:55] LABS: BASOPHILS % (AUTO) 0.9 % (0.0-2.0); EOSINOPHILS % (AUTO) 0.9 % (0.0-3.0); HEMATOCRIT 35.6 % (37.0-47.0); HEMOGLOBIN 11.2 G/DL (12.0-16.0); LYMPHOCYTES % (AUTO) 36.7 % (20.0-45.0); MEAN CORPUSCULAR VOLUME 81 FL (80-99); MONOCYTES % (AUTO) 7.5 % (1.0-10.0); NEUTROPHILS % (AUTO) 54.1 % (45.0-75.0); PLATELET COUNT 334 K/UL (150-450); RED BLOOD COUNT 4.39 M/UL (4.20-5.40); RED CELL DISTRIBUTION WIDTH 14.2 % (11.6-14.8)
[2018-11-08 12:09] LABS: ANION GAP 9 mmol/L (5-15); BLOOD UREA NITROGEN 9 mg/dL (7-18); CALCIUM 9.5 MG/DL (8.5-10.1); CARBON DIOXIDE 25 MMOL/L (21-32); CHLORIDE 102 MMOL/L (98-107); CREATININE 0.8 MG/DL (0.55-1.30); SODIUM 136 MMOL/L (136-145)
[2018-11-08 12:14] LABS: ALANINE AMINOTRANSFERASE 33 U/L (12-78); ALBUMIN 3.6 G/DL (3.4-5.0); ALBUMIN/GLOBULIN RATIO 1.1 (1.0-2.7); ALKALINE PHOSPHATASE 102 U/L (46-116); ASPARTATE AMINO TRANSFERASE 23 U/L (15-37); BILIRUBIN,TOTAL 0.6 MG/DL (0.2-1.0)
[2018-11-08 12:20] VITALS: BP 132/68
[2018-11-08] MEDS ORDERED: ZITHROMAX250 MG ORAL (12:38)
[2018-11-08] MEDS ORDERED: NORCO 5-325 TA1 EACH ORAL (12:55)
[2018-11-08 13:05] VITALS: BP 121/77
--- NOTE | 2018-11-08 13:06 | NUR ---
ED Nurse Note: pt was cleared to be discharged by ERMD. pt and at bedside received discharge instruction and prescriptions. they both verbalized understanding. id band removed and pt ambulated to be discharged in stable condition.
[2018-11-09] MEDS ORDERED: ROBAXIN-750750 MG PO (21:51)
[2018-11-09] MEDS ORDERED: LIDODERM700 M1 TOPIC (21:51)
[2018-11-09] MEDS ORDERED: PREDNISONE20 MG ORAL (21:51)
== END 2018-11-08 13:07 | disposition home or self-care (01) ==
LOC: EMR 11:00
DX: J11.1 Influenza due to unidentified influenza virus with other respiratory manifestations (principal); J45.909 Unspecified asthma, uncomplicated; M32.9 Systemic lupus erythematosus, unspecified
CPT/HCPCS: 36415; 71045; 80053; 84484; 85025; 86710; 93005; 94640; 94664; 96372; 99284; J1885

== ENCOUNTER 2018-11-09 20:12 | Emergency (ER) | payer MEDICAID ==
[~2018-11-09] VITALS: Ht 154.9 cm; Wt 72.6 kg
[~2018-11-09 20:12] MED LIST changes: +NORCO 5-325 TA1 EACH ORAL; +ZITHROMAX250 MG ORAL
--- NOTE | 2018-11-09 20:35 | NUR ---
ED Nurse Note: RECIEVED SITTING IN CHAIR CRYING AND GUARDING RIGHT SIDE, PT HERE WITH C/O RIGHT LUNG PAIN STATING SHE HAS PNA AND HER ORAL NORCO IS NOT WORKING FOR THE PAIN, PT DENIES FEVERS, NAUSEA OR VOMITING OR ANY OTHER COMPLAINTS, PT URINE COLLECTED AND SENT, WILL RESUME CARE ORDERED.
[2018-11-09] MEDS ORDERED: Morphine Sulfate 4mg/ml Inj (IV/IM USE ONLY) IM ONE (20:45)
--- NOTE | 2018-11-09 21:30 | Diagnostic Imaging Report ---
EXAM: CT Chest Without Intravenous Contrast CLINICAL HISTORY: PAIN TECHNIQUE: Axial computed tomography images of the chest without intravenous contrast. CTDI is 0.15, 21.75 mGy and DLP is 712 mGy-cm. One or more of the following dose reduction techniques were used: automated exposure control, adjustment of the mA and/or kV according to patient size, use of iterative reconstruction technique. COMPARISON: No relevant prior studies available. FINDINGS: Lungs: Consolidation within the right lower lobe with subtle nodular ground glass opacities seen within the remainder of both lungs. Pleural space: Trace right-sided pleural effusion. No pneumothorax. Heart: Unremarkable. No cardiomegaly. No significant pericardial effusion. Bones/joints: Unremarkable. No acute fracture. No dislocation. Soft tissues: Unremarkable. Vasculature: Unremarkable. No thoracic aortic aneurysm. Lymph nodes: Subcentimeter mediastinal and hilar lymph nodes, likely reactive. IMPRESSION: 1. Consolidation within the right lower lobe with subtle nodular ground glass opacities seen within the remainder of both lungs. Findings likely represent an inflammatory or infectious process. 2. Trace right-sided pleural effusion.
[2018-11-09] MEDS ORDERED: ROBAXIN-750750 MG PO (21:51)
[2018-11-09] MEDS ORDERED: PREDNISONE20 MG ORAL (21:51)
[2018-11-09] MEDS ORDERED: LIDODERM700 M1 TOPIC (21:51)
[2018-11-09 22:00] VITALS: BP 129/86
[2018-11-09] MEDS ORDERED: Methocarbamol 750mg tab ORAL ONE (22:00)
--- NOTE | 2018-11-09 22:10 | NUR ---
ED Nurse Note: MEDS GIVEN FOR PAIN SLIGHTLY EFFECTIVE, PT PAIN LEVEL DECREASED TO 5/10, PT BEING D/C TO HOME, GIVEN ORAL MED AND PAIN PATCH, PT WITH SPOUSE TO DRIVE, GIVEN F/U INFO, AFTER CARE INSTRUCTIONS AND RE-VERBALIZES PROPER MEDICATION ADMINISTRATION, NAD NOTED DURING D/C TO HOME, ARMBAND REMOVED.
[2018-11-09 22:13] VITALS: BP 129/86
--- NOTE | 2018-11-10 16:18 | Emergency Room Report ---
History of Present Illness General Chief Complaint: Pain Source: Patient Present Illness HPI 43-year-old female presents ED for evaluation. Complaining of right-sided rib pain. States she's been having this pain on and off times one month. Was admitted in October for pneumonia here. Was seen yesterday for similar pain. Had workup done which included chest x-ray. Concerning for questionable right lung nodule. Patient was informed of findings discharged with pain medications. States pain is persisting despite pain meds. Sharp, 9 out of 10, nonradiating. Denies fevers or chills. Denies chest pain. Denies shortness of breath. History of rheumatoid arthritis. No other aggravating relieving factors. Denies any other associated symptoms Allergies: Coded Allergies: CARBAMAZEPINE (Unverified Allergy, Unknown, 09/25/14) Patient History Past Medical History: other - pneumonia Pertinent Family History: none Social History: Denies: smoking, alcohol use, drug use Last Menstrual Period: 10/24/2018 Now: No Immunizations: UTD Reviewed Nursing Documentation: PMH: Agreed; PSxH: Agreed Nursing Documentation-PMH Hx Cardiac Problems: No Hx Hypertension: No Hx Pacemaker: No Hx Asthma: Yes - PNA Hx COPD: No Hx Diabetes: No Hx Cancer: No Hx Gastrointestinal Problems: No Hx Dialysis: No Hx Neurological Problems: Yes - Lupus, MS Hx Cerebrovascular Accident: No Hx Seizures: No Review of Systems All Other Systems: negative except mentioned in HPI Physical Exam Vital Signs Date Time Temp Pulse Resp B/P (MAP) Pulse Ox O2 Delivery O2 Flow Rate FiO2 11/09/18 20:20 98.6 105 22 133/80 98 Room Air Sp02 EP Interpretation: reviewed, normal General Appearance: no apparent distress, alert, GCS 15, non-toxic Head: normocephalic, atraumatic Eyes: bilateral eye normal inspection, bilateral eye PERRL ENT: hearing grossly normal, normal pharynx, no angioedema, normal voice Neck: full range of motion, supple/symm/no masses Respiratory: lungs clear, normal breath sounds, speaking full sentences, other - reproducible R rib pain Cardiovascular #1: regular rate, rhythm, no edema Cardiovascular #2: 2+ carotid (R), 2+ carotid (L), 2+ radial (R), 2+ radial (L) , 2+ dorsalis pedis (R), 2+ dorsalis pedis (L) Gastrointestinal: normal bowel sounds, non tender, soft, non-distended, no guarding, no rebound Rectal: deferred Genitourinary: normal inspection, no CVA tenderness Musculoskeletal: back normal, gait/station normal, normal range of motion, non- tender Neurologic: alert, oriented x3, responsive, motor strength/tone normal, sensory intact, speech normal Psychiatric: judgement/insight normal, memory normal, mood/affect normal, no suicidal/homicidal ideation Reflexes: 3+ bicep (R), 3+ bicep (L), 3+ tricep (R), 3+ tricep (L), 3+ knee (R) , 3+ knee (L) Skin: normal color, no rash, warm/dry, well hydrated Lymphatic: no adenopathy Medical Decision Making Diagnostic Impression: Primary Impression: Chest wall pain Additional Impression: Community acquired pneumonia Qualified Codes: J18.9 - Pneumonia, unspecified organism ER Course Hospital Course 43 yo F presents to ED c/o R chest pain. seen yesterday for same. ? R lung nodule on CXR Differential diagnoses include: PTX, rib fracture, lung ca Clinical course Patient placed on stretcher. After initial history and physical, I ordered pain medications and CT Chest CT chest shows infectious process, likely resolving pneumonia. Patient currently being treated for pneumonia. No signs of lung nodule. No pneumothorax rib fracture Discussed findings with patient. Pain is likely muscular as patient has been having repeated bouts of coughing. Patient also has history of lupus. Safe for discharge with close outpatient follow-up. Patient will be provided lidoderm patch, robaxin patient will continue her existing meds, has a PMD Diagnosis - chest wall pain, community acquired pneumonia Stable and discharged to home with prescription for robaxin, lidoderm, prednisone. Followup with PMD. Return to ED if symptoms recur or worsen CT/MRI/US Diagnostic Results CT/MRI/US Diagnostic Results : Imaging Test Ordered: CT Chest Impression 1. Consolidation within the right lower lobe with subtle nodular ground glass opacities seen within the remainder of both lungs. Findings likely represent an inflammatory or infectious process. 2. Trace right-sided pleural effusion. Last Vital Signs Date Time Temp Pulse Resp B/P (MAP) Pulse Ox O2 Delivery O2 Flow Rate FiO2 11/09/18 22:13 98.6 74 18 129/86 98 Room Air Status: improved Disposition: HOME, SELF-CARE Condition: Stable Scripts Prednisone* (PREDNISONE*) 20 Mg Tablet 40 MG ORAL DAILY, #10 TAB Prov: Ammon Vasquez MD 11/09/18 Lidocaine (Lidoderm) 1 Each Adh..patch 1 PATCH TOPIC DAILY, #7 PATCH 0 Refills Patch(es) may remain in place for up to 12 hours in any 24-hour period. Prov: Ammon Vasquez MD 11/09/18 Methocarbamol* (ROBAXIN-750*) 750 Mg Tablet 750 MG PO TID, #21 TAB 0 Refills Prov: Ammon Vasquez MD 11/09/18 Referrals: [facility],REFERRING (PCP) Patient Instructions: Chest Wall Pain, [id number] Additional Instructions: continue your antibiotics as prescribed. followup with PMD Ammon Vasquez MD Nov 10, 2018 16:18
== END 2018-11-09 22:10 | disposition home or self-care (01) ==
LOC: EMR 20:38
DX: R07.89 Other chest pain (principal); J18.9 Pneumonia, unspecified organism; M32.9 Systemic lupus erythematosus, unspecified
CPT/HCPCS: 71250; 81025; 96372; 99284; J2270

== ENCOUNTER 2018-12-04 21:30 | Inpatient (IN) | payer MEDICAID ==
[~2018-12-04] VITALS: Ht 154.9 cm; Wt 77.1 kg
[~2018-12-04 21:30] MED LIST changes: +LIDODERM700 M1 TOPIC; +ROBAXIN-750750 MG PO
--- NOTE | 2018-12-04 21:36 | NUR ---
ED Nurse Note: Patient walk in c/o headaches, sorethroat, fever, cough on and off for 1 month. Patient states it has been occurring since she was discharged from the hospital with pneumonia 1 month ago. Pt is AO x 4times, VSS, on room air no distress. ERMD seen Pt at bedside. Boyfriend is on bedside.
[2018-12-04] MEDS ORDERED: TESSALON PERLE100 M2 ORAL (21:39)
[2018-12-04] MEDS ORDERED: ZYRTEC10 M3 ORAL (21:39)
--- NOTE | 2018-12-04 22:00 | NUR ---
ED Nurse Note: Blood and urine sample sent to lab.
[2018-12-04 22:03] VITALS: BP 126/78
--- NOTE | 2018-12-04 22:30 | Emergency Room Report ---
History of Present Illness General Chief Complaint: Flu Like Symptoms Source: Patient Present Illness HPI Patient is a 43-year-old female presented after increased fever. Patient reports having intermittent fever since September. She reports having prior history of seronegative lupus as well as multiple sclerosis. She had previous hospitalization in which she was noted to have some fever. Patient denies any severe headache. She reports having increased cough and sore throat.Patient denies any new weakness or vomiting. She denies any dysuria. Allergies: Coded Allergies: CARBAMAZEPINE (Unverified Allergy, Unknown, 09/25/14) Patient History Last Menstrual Period: 11/13/2018 Now: No Reviewed Nursing Documentation: PMH: Agreed; PSxH: Agreed Nursing Documentation-PMH Past Medical History: No History, Except For Hx Cardiac Problems: No Hx Hypertension: No Hx Pacemaker: No Hx Asthma: Yes - PNA Hx COPD: No Hx Diabetes: No Hx Cancer: No Hx Gastrointestinal Problems: No Hx Dialysis: No Hx Neurological Problems: Yes - Lupus, MS Hx Cerebrovascular Accident: No Hx Seizures: No Review of Systems All Other Systems: negative except mentioned in HPI Physical Exam Vital Signs Date Time Temp Pulse Resp B/P (MAP) Pulse Ox O2 Delivery O2 Flow Rate FiO2 12/04/18 21:35 100.9 114 22 121/70 95 12/04/18 22:03 Room Air Sp02 EP Interpretation: reviewed, normal General Appearance: normal inspection, well appearing, no apparent distress, alert, GCS 15, non-toxic Head: atraumatic ENT: normal ENT inspection, hearing grossly normal, normal voice Neck: normal inspection, full range of motion, supple, no bony tend Respiratory: normal inspection, lungs clear, normal breath sounds, no respiratory distress, no retraction, no wheezing Cardiovascular #1: regular rate, rhythm, no edema Gastrointestinal: normal inspection, normal bowel sounds, non tender, soft, no guarding, no hernia Genitourinary: no CVA tenderness Musculoskeletal: normal inspection, back normal, normal range of motion Neurologic: normal inspection, alert, oriented x3, responsive, 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 The nurses include was not limited to pneumonia, urinary tract infection, drug fever, lupus , among others. Because of complexity of patient's case laboratory testing and imaging studies were ordered. Laboratory testing showed normal white blood count. Patient given IV fluids she was given oral antipyretics. Patient was started on antibiotics. Patient's urine did not appear to be infected. Dr. Jason Gonzalez was contacted for inpatient management due to previous admission Labs Test 12/04/18 21:45 12/04/18 23:05 Urine Color Yellow Urine Appearance Clear Urine pH 5 (4.5-8.0) Urine Specific [place] 1.015 (1.005-1.035) Urine Protein Negative (NEGATIVE) Urine Glucose (UA) Negative (NEGATIVE) Urine Ketones Negative (NEGATIVE) Urine Blood Negative (NEGATIVE) Urine Nitrite Negative (NEGATIVE) Urine Bilirubin Negative (NEGATIVE) Urine Urobilinogen Normal MG/DL (0.0-1.0) Urine Leukocyte Esterase Negative (NEGATIVE) Urine HCG, Qualitative Negative (NEGATIVE) White Blood Count 7.5 K/UL (4.8-10.8) Red Blood Count 3.97 M/UL (4.20-5.40) Hemoglobin 9.5 G/DL (12.0-16.0) Hematocrit 30.5 % (37.0-47.0) Mean Corpuscular Volume 77 FL (80-99) Mean Corpuscular Hemoglobin 23.9 PG (27.0-31.0) Mean Corpuscular Hemoglobin Concent 31.1 G/DL (32.0-36.0) Red Cell Distribution Width 15.3 % (11.6-14.8) Platelet Count 302 K/UL (150-450) Mean Platelet Volume 5.3 FL (6.5-10.1) Neutrophils (%) (Auto) 58.3 % (45.0-75.0) Lymphocytes (%) (Auto) 36.9 % (20.0-45.0) Monocytes (%) (Auto) 3.4 % (1.0-10.0) Eosinophils (%) (Auto) 0.4 % (0.0-3.0) Basophils (%) (Auto) 1.0 % (0.0-2.0) Sodium Level 140 MMOL/L (136-145) Potassium Level 3.1 MMOL/L (3.5-5.1) Chloride Level 102 MMOL/L (98-107) Carbon Dioxide Level 24 MMOL/L (21-32) Anion Gap 14 mmol/L (5-15) Blood Urea Nitrogen 10 mg/dL (7-18) Creatinine 1.0 MG/DL (0.55-1.30) Estimat Glomerular Filtration Rate > 60 mL/min (>60) Glucose Level 83 MG/DL (74-106) Lactic Acid Level 0.70 mmol/L (0.4-2.0) Calcium Level 9.1 MG/DL (8.5-10.1) Total Bilirubin 0.2 MG/DL (0.2-1.0) Aspartate Amino Transf (AST/SGOT) 36 U/L (15-37) Alanine Aminotransferase (ALT/SGPT) 28 U/L (12-78) Alkaline Phosphatase 99 U/L (46-116) Total Creatine Kinase 206 U/L (26-308) Creatine Kinase MB 0.5 NG/ML (0.0-3.6) Creatine Kinase MB Relative Index 0.2 Troponin I 0.160 ng/mL (0.000-0.056) Total Protein 6.8 G/DL (6.4-8.2) Albumin 3.5 G/DL (3.4-5.0) Globulin 3.3 g/dL Albumin/Globulin Ratio 1.1 (1.0-2.7) Last Vital Signs Date Time Temp Pulse Resp B/P (MAP) Pulse Ox O2 Delivery O2 Flow Rate FiO2 12/04/18 22:03 101.0 111 22 126/78 95 Room Air Status: improved Disposition: HOME, SELF-CARE Condition: Stable Referrals: [facility],REFERRING (PCP) Nghia Henderson MD Dec 04, 2018 22:30
[2018-12-04 23:07] LABS: APPEARANCE,URINE CLEAR; BILIRUBIN, URINE NEGATIVE (NEGATIVE); GLUCOSE, URINE (UA) NEGATIVE (NEGATIVE); KETONES,URINE NEGATIVE (NEGATIVE); LEUKOCYTE ESTERASE ,URINE NEGATIVE (NEGATIVE); NITRITE,URINE NEGATIVE (NEGATIVE); PH,URINE 5 (4.5-8.0); PROTEIN,URINE NEGATIVE (NEGATIVE); UROBILINOGEN,URINE NORMAL MG/DL (0.0-1.0)
[2018-12-04 23:10] LABS: COLOR,URINE YELLOW
[2018-12-04 23:41] LABS: ANION GAP 14 mmol/L (5-15); BLOOD UREA NITROGEN 10 mg/dL (7-18); CALCIUM 9.1 MG/DL (8.5-10.1); CARBON DIOXIDE 24 MMOL/L (21-32); CHLORIDE 102 MMOL/L (98-107); POTASSIUM 3.1 MMOL/L (3.5-5.1); SODIUM 140 MMOL/L (136-145)
[2018-12-04 23:46] LABS: ALANINE AMINOTRANSFERASE 28 U/L (12-78); ALBUMIN 3.5 G/DL (3.4-5.0); ALBUMIN/GLOBULIN RATIO 1.1 (1.0-2.7); ALKALINE PHOSPHATASE 99 U/L (46-116); ASPARTATE AMINO TRANSFERASE 36 U/L (15-37); BILIRUBIN,TOTAL 0.2 MG/DL (0.2-1.0); CREATINE KINASE 206 U/L (26-308)
[2018-12-04 23:50] LABS: EOSINOPHILS % (AUTO) 0.4 % (0.0-3.0); HEMATOCRIT 30.5 % (37.0-47.0); HEMOGLOBIN 9.5 G/DL (12.0-16.0); LYMPHOCYTES % (AUTO) 36.9 % (20.0-45.0); MEAN CORPUSCULAR VOLUME 77 FL (80-99); MONOCYTES % (AUTO) 3.4 % (1.0-10.0); NEUTROPHILS % (AUTO) 58.3 % (45.0-75.0); PLATELET COUNT 302 K/UL (150-450); RED BLOOD COUNT 3.97 M/UL (4.20-5.40); RED CELL DISTRIBUTION WIDTH 15.3 % (11.6-14.8); WHITE BLOOD COUNT 7.5 K/UL (4.8-10.8)
[2018-12-05] VITALS (7 sets, daily range): BP systolic 126–137; BP diastolic 72–89
[2018-12-05] MEDS ORDERED: cefTRIAXone 1 GM in NS 55 ML IVPB ONE (00:30)
--- NOTE | 2018-12-05 01:16 | NUR ---
ED Nurse Note: Pt potassium 3.1, Troponin 0.160. Inform ERMD, SHELIAD aware,
[2018-12-05 01:27] LABS: CKMB 0.5 NG/ML (0.0-3.6)
--- NOTE | 2018-12-05 01:28 | NUR ---
ED Nurse Note: Message left to Dr Gonzalez for admit orders, await for respond back.
--- NOTE | 2018-12-05 01:31 | NUR ---
ED Nurse Note: Admit Pt to 4E 406-2. Belongings and report given to NOE Thomson. Pt is AO x 4times, VSS, on room air no distress.
--- NOTE | 2018-12-05 01:59 | NUR ---
NURSE NOTES: Received patient in bed, asleep, alert, oriented, ambulatory, belongings list been accounted for, call light is within reach, RN called and left a message for dr. Gonzalez for admitting orders. Bed is in low position, locked and alarm is on, will continue to monitor.
--- NOTE | 2018-12-05 07:13 | NUR ---
HAND-OFF: Report given to ASTER LIU.
--- NOTE | 2018-12-05 07:43 | NUR ---
NURSE NOTES: PT AXOX4, CALM, RESTING IN BED. PT COMPLAINS OF PAIN AROUND RIBCAGE DUE TO CONTINUED COUGHING. PT MADE AWARE OF PLAN OF CARE. BED IN LOWEST POSITION WITH CALL LIGHT WITHIN REACH. WILL CONTINUE TO MONITOR.
[2018-12-05 07:50] LABS: BASOPHILS % (AUTO) 1.1 % (0.0-2.0); EOSINOPHILS % (AUTO) 0.4 % (0.0-3.0); HEMATOCRIT 27.1 % (37.0-47.0); HEMOGLOBIN 8.4 G/DL (12.0-16.0); LYMPHOCYTES % (AUTO) 40.6 % (20.0-45.0); MEAN CORPUSCULAR VOLUME 77 FL (80-99); MONOCYTES % (AUTO) 6.6 % (1.0-10.0); NEUTROPHILS % (AUTO) 51.3 % (45.0-75.0); PLATELET COUNT 272 K/UL (150-450); RED BLOOD COUNT 3.54 M/UL (4.20-5.40); RED CELL DISTRIBUTION WIDTH 15.1 % (11.6-14.8); WHITE BLOOD COUNT 5.4 K/UL (4.8-10.8)
[2018-12-05 08:18] LABS: ALANINE AMINOTRANSFERASE 24 U/L (12-78); ALBUMIN 2.8 G/DL (3.4-5.0); ALBUMIN/GLOBULIN RATIO 1.3 (1.0-2.7); ALKALINE PHOSPHATASE 82 U/L (46-116); ANION GAP 11 mmol/L (5-15); ASPARTATE AMINO TRANSFERASE 31 U/L (15-37); BILIRUBIN,TOTAL 0.2 MG/DL (0.2-1.0); BLOOD UREA NITROGEN 8 mg/dL (7-18); CALCIUM 8.4 MG/DL (8.5-10.1); CARBON DIOXIDE 25 MMOL/L (21-32); CHLORIDE 106 MMOL/L (98-107); CREATININE 0.8 MG/DL (0.55-1.30); PHOSPHORUS 3.8 MG/DL (2.5-4.9); POTASSIUM 3.2 MMOL/L (3.5-5.1); SODIUM 142 MMOL/L (136-145)
[2018-12-05] MEDS: Benzonatate 100mg Perles ORAL SCH ×3 (09:11→17:59)
[2018-12-05] MEDS: Methocarbamol 750mg tab ORAL SCH ×3 (10:45→17:59)
--- NOTE | 2018-12-05 10:50 | Diagnostic Imaging Report ---
Indication: Dyspnea Comparison: 11/08/2018 A single view chest radiograph was obtained. Findings: Cardiomediastinal appearance is within normal limits for age. The lungs are clear. Pulmonary vascularity is appropriate. The diaphragmatic contour is smooth and costophrenic angles are sharp. No pleural effusions are identified. The bones are unremarkable. Impression: No acute findings
--- NOTE | 2018-12-05 11:44 | History & Physical ---
History and Physical History & Physicial Dictated for Int Med-Dr Gonzalez no [id number]. Leonid Salmeron MD Dec 05, 2018 11:44
[2018-12-05] MEDS: Albuterol 90mcg Inhaler 8gm INH PRN (13:13)
[2018-12-05] MEDS: Promethazine/Codeine 5ml UD ORAL PRN ×2 (13:16→17:59)
--- NOTE | 2018-12-05 13:25 | Consultation ---
History of Present Illness General Date patient seen: Dec 05, 2018 Chief Complaint: Flu Like Symptoms Present Illness HPI 43 y/o F with hx of seronegative lupus, Multiple sclerosis, asthma, PNA presents to ED on 12/04 with increasing fever. Patient reports that since September 2018 has been having intermittent fever. +increased cough and sore throat. WATTS only when have fever and with sinus congestion. 10 lbs wt loss in the last 3 weeks. Denies WATTS, n/v/d, dysuria, rash. Dx MS at ate 21 but has been on remision for years Dx with Lupus 2013- on Plaquenil Has been admitted twice for same symptoms (Mid Sep 2018 and Early Oct 2018). Last admission she was treated for PNA. Non contrast CT showed consolidation. Allergies: Coded Allergies: CARBAMAZEPINE (Unverified Allergy, Unknown, 09/25/14) Medication History Scheduled Acyclovir* (Acyclovir*), 400 MG ORAL DAILY, (Reported) Azithromycin* (Zithromax*), 250 MG ORAL DAILY Benzonatate (Tessalon Perle), 100 MG ORAL THREE TIMES A DAY, (Reported) Cetirizine Hcl (Zyrtec), 10 MG ORAL DAILY, (Reported) Cetirizine Hcl* (Zyrtec*), 10 MG ORAL DAILY Levofloxacin* (Levaquin*), 500 MG ORAL DAILY Lidocaine (Lidoderm), 1 PATCH TOPIC DAILY Methocarbamol* (Robaxin-750*), 750 MG PO TID Prednisone* (Prednisone*), 40 MG ORAL DAILY [plaquenil], 400 MG ORAL DAILY, (Reported) Scheduled PRN Albuterol Sulfate* (Albuterol Sulfate Mdi*), 2 PUFF INH Q4H PRN for cough/ wheezing Hydrocodone Bit/Acetaminophen 5-325* ([place] 5-325*), 1 TAB ORAL Q6H PRN for For Pain Ibuprofen (Ibuprofen), 800 MG PO Q8HR PRN for FEVER, (Reported) Patient History Healthcare decision maker Resuscitation status Full Code Advanced Directive on File No Patient History Narrative Pmhx: as above Shx: reviewed Fhx: non contributory Review of Systems All Other Systems: negative except mentioned in HPI Physical Exam Physical Exam Narrative General Appearance: normal inspection, well appearing, no apparent distress, alert, , non-toxic Head: atraumatic ENT: normal ENT inspection, hearing grossly normal, normal voice Neck: normal inspection, full range of motion, supple, no bony tend Respiratory: normal inspection, lungs clear, normal breath sounds, no respiratory distress, no retraction, no wheezing Cardiovascular : regular rate, rhythm, no edema Gastrointestinal: normal inspection, normal bowel sounds, non tender, soft, no guarding, no hernia Genitourinary: no CVA tenderness Musculoskeletal: normal inspection, back normal, normal range of motion Neurologic: normal inspection, alert, oriented x3, 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, 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, speech normal Psychiatric: normal inspection, judgement/insight normal, mood/affect normal Skin: normal inspection, normal color, no rash Last 24 Hour Vital Signs Date Time Temp Pulse Resp B/P (MAP) Pulse Ox O2 Delivery O2 Flow Rate FiO2 12/05/18 09:00 Room Air 12/05/18 08:00 98.2 82 18 127/89 (102) 98 12/05/18 07:32 80 18 Room Air 21 12/05/18 04:00 99.0 79 20 135/85 (102) 12/05/18 02:04 Room Air 12/05/18 01:30 99.8 117 18 132/72 98 Room Air 12/05/18 01:30 99.8 117 18 132/72 98 Room Air 12/04/18 23:38 100.0 12/04/18 22:03 101.0 111 22 126/78 95 Room Air 12/04/18 22:03 111 22 Room Air 12/04/18 21:35 100.9 114 22 121/70 95 Intake and Output 12/04/18 12/05/18 19:00 07:00 Intake Total 200 ml Balance 200 ml Intake Oral 200 ml # Voids 1 # Bowel Movements 1 Laboratory Tests Test 12/04/18 21:45 12/04/18 23:05 12/05/18 07:40 Urine Color Yellow Urine Appearance Clear Urine pH 5 (4.5-8.0) Urine Specific [place] 1.015 (1.005-1.035) Urine Protein Negative (NEGATIVE) Urine Glucose (UA) Negative (NEGATIVE) Urine Ketones Negative (NEGATIVE) Urine Blood Negative (NEGATIVE) Urine Nitrite Negative (NEGATIVE) Urine Bilirubin Negative (NEGATIVE) Urine Urobilinogen Normal MG/DL (0.0-1.0) Urine Leukocyte Esterase Negative (NEGATIVE) Urine HCG, Qualitative Negative (NEGATIVE) White Blood Count 7.5 K/UL (4.8-10.8) 5.4 K/UL (4.8-10.8) Red Blood Count 3.97 M/UL (4.20-5.40) L 3.54 M/UL (4.20-5.40) L Hemoglobin 9.5 G/DL (12.0-16.0) L 8.4 G/DL (12.0-16.0) L Hematocrit 30.5 % (37.0-47.0) L 27.1 % (37.0-47.0) L Mean Corpuscular Volume 77 FL (80-99) L 77 FL (80-99) L Mean Corpuscular Hemoglobin 23.9 PG (27.0-31.0) L 23.8 PG (27.0-31.0) L Mean Corpuscular Hemoglobin Concent 31.1 G/DL (32.0-36.0) L 31.1 G/DL (32.0-36.0) L Red Cell Distribution Width 15.3 % (11.6-14.8) H 15.1 % (11.6-14.8) H Platelet Count 302 K/UL (150-450) 272 K/UL (150-450) Mean Platelet Volume 5.3 FL (6.5-10.1) L 5.0 FL (6.5-10.1) L Neutrophils (%) (Auto) 58.3 % (45.0-75.0) 51.3 % (45.0-75.0) Lymphocytes (%) (Auto) 36.9 % (20.0-45.0) 40.6 % (20.0-45.0) Monocytes (%) (Auto) 3.4 % (1.0-10.0) 6.6 % (1.0-10.0) Eosinophils (%) (Auto) 0.4 % (0.0-3.0) 0.4 % (0.0-3.0) Basophils (%) (Auto) 1.0 % (0.0-2.0) 1.1 % (0.0-2.0) Sodium Level 140 MMOL/L (136-145) 142 MMOL/L (136-145) Potassium Level 3.1 MMOL/L (3.5-5.1) L 3.2 MMOL/L (3.5-5.1) L Chloride Level 102 MMOL/L (98-107) 106 MMOL/L (98-107) Carbon Dioxide Level 24 MMOL/L (21-32) 25 MMOL/L (21-32) Anion Gap 14 mmol/L (5-15) 11 mmol/L (5-15) Blood Urea Nitrogen 10 mg/dL (7-18) 8 mg/dL (7-18) Creatinine 1.0 MG/DL (0.55-1.30) 0.8 MG/DL (0.55-1.30) Estimat Glomerular Filtration Rate > 60 mL/min (>60) > 60 mL/min (>60) Glucose Level 83 MG/DL (74-106) 87 MG/DL (74-106) Lactic Acid Level 0.70 mmol/L (0.4-2.0) Calcium Level 9.1 MG/DL (8.5-10.1) 8.4 MG/DL (8.5-10.1) L Total Bilirubin 0.2 MG/DL (0.2-1.0) 0.2 MG/DL (0.2-1.0) Aspartate Amino Transf (AST/SGOT) 36 U/L (15-37) 31 U/L (15-37) Alanine Aminotransferase (ALT/SGPT) 28 U/L (12-78) 24 U/L (12-78) Alkaline Phosphatase 99 U/L (46-116) 82 U/L (46-116) Total Creatine Kinase 206 U/L (26-308) Creatine Kinase MB 0.5 NG/ML (0.0-3.6) Creatine Kinase MB Relative Index 0.2 Troponin I 0.160 ng/mL (0.000-0.056) 0.005 ng/mL (0.000-0.056) Total Protein 6.8 G/DL (6.4-8.2) 5.0 G/DL (6.4-8.2) L Albumin 3.5 G/DL (3.4-5.0) 2.8 G/DL (3.4-5.0) L Globulin 3.3 g/dL 2.2 g/dL Albumin/Globulin Ratio 1.1 (1.0-2.7) 1.3 (1.0-2.7) Phosphorus Level 3.8 MG/DL (2.5-4.9) Magnesium Level 1.8 MG/DL (1.8-2.4) Microbiology Date/Time Source Procedure Growth Status 12/04/18 23:05 Nasal Nares Influenza Types A,B Antigen (CASSANDRA) - Final Complete Height (Feet): 5 Height (Inches): 1.00 Weight (Pounds): 170 Medications Current Medications Medications (Trade) Dose Ordered Sig/Aileen Route PRN Reason Start Time Stop Time Status Last Admin Dose Admin Acetaminophen/ Hydrocodone Bitart ([place] 5/325) 1 tab Q6H PRN ORAL For Pain 12/05/18 06:00 12/12/18 05:59 Albuterol Sulfate (Proventil MDI) 2 puff Q4H PRN INH cough/wheezing 12/05/18 06:00 01/04/19 05:59 12/05/18 13:13 Benzonatate (Tessalon Perles) 100 mg THREE TIMES A DAY ORAL 12/05/18 09:00 01/04/19 08:59 12/05/18 09:11 Ceftriaxone Sodium 1 gm/ Dextrose 55 ml @ 110 mls/hr Q24H IVPB 12/06/18 00:00 12/13/18 00:00 Ibuprofen (Motrin) 800 mg Q8H PRN ORAL FEVER 12/05/18 06:00 01/04/19 05:59 12/05/18 10:42 Methocarbamol (Robaxin) 750 mg TID ORAL 12/05/18 09:00 01/04/19 08:59 12/05/18 10:45 Prednisone (predniSONE) 40 mg DAILY ORAL 12/05/18 09:00 01/04/19 08:59 12/05/18 09:11 Promethazine HCl/ Codeine (Phenergan with Codeine) 5 ml Q4H PRN ORAL For Cough 12/05/18 12:15 01/04/19 12:14 Assessment/Plan Assessment/Plan Abx: Ceftriaxone 12/05- Assessment: Fever of unkown origen (since Sep 2018)- r/o Lymphoma, flare of Lupus or other autoimmune/inflammatory disorder- infectious process seems less likely but r/o atypical infections such as rickettsia, q fever, brucella, HIV. -CXR: No acute findings -u/a neg -influenza sc neg -Bcx p -2/ CT chest wo: Consolidation within the right lower lobe with subtle nodular ground glass opacities seen within the remainder of both lungs. Findings likely represent an inflammatory or infectious process. Trace right- sided pleural effusion. Cervical lymphadenopathy No leukocytosis seronegative lupus Multiple sclerosis asthma hx of PNA Plan: -Continue empiric Ceftriaxone for now and add Doxycycline for atypical coverage -f/u cx -Monitor CBC/CMP, temperatures -2d Echo, ESR, CRP, HIV ab, RPR, Brucella ab, Q fever ab, bartonella ab -Rheum w/u -CT c/abd/p/head/neck with contrast -may need lymph node biopsy- likely from neck -V.duplex -Neuro and Rheum evaluation recommended Thank you for this consultation. Will continue to follow along with you. Discussed with Jany Ramirez M.D. Dec 05, 2018 13:24
--- NOTE | 2018-12-05 14:21 | NUR ---
TECHNICAL ASSOCCASHIER CREDIT 43 YO FEMALE FROM HOME TO ER CC WATTS COUGH FLU LIKE SYMPTOMS SINCE A FEW DAYS SI: FEBRILE ILLNESS T. 101.0 HR 114 RR 22 B/P 121/70 CXR= NO ACUTE PROCESS K 3.1 TROP 0.160 IS: IV BOLUS NS X 1 LITER IBUPROFEN PO ADMITTED TO MED/SURG @0130 MED/SURG STATUS DCP RETURN HOME
--- NOTE | 2018-12-05 16:26 | NUR ---
*-* INSURANCE *-* ALL CLINICALS AND REVIEWS HAVE BEEN FAXED TO: NILA SHEA REPORTED TO: LAURITA Ortiz AUTH#: [employer] ATTENDANT: NIA Rock#: [phone] F#: [phone] PLEASE FAX CLINICALS TO ABOVE #
--- NOTE | 2018-12-05 16:45 | History and Physical Report ---
DATE OF ADMISSION: 12/04/2018 DATE OF EVALUATION: 12/05/2018. CHIEF COMPLAINT: The patient is a 43-year-old female, who presents with a chief complaint of fever, chills, and cough. HISTORY OF PRESENT ILLNESS: The patient was admitted to [facility] in October of 2018 for community-acquired pneumonia. The patient was treated with intravenous antibiotics at that time. The patient has a history of systemic lupus. The patient complains of on and off fever since the October admission. The patient states her fever runs between 100 and 102 degrees Fahrenheit. The patient states fevers off and on. This has been accompanied with a nonproductive cough. Over the last 3 or 4 days, cough has increased. The patient is now complaining of cough productive of a yellowish sputum. The patient presented to [place] emergency room. The patient is admitted with fever and chills with a cough. The patient is admitted to rule out pneumonia. REVIEW OF SYSTEMS: CONSTITUTIONAL: The patient denies weight loss or gain. The patient complains of fevers and chills as above. HEENT: The patient denies ear or throat pain. The patient denies headache. CARDIOVASCULAR: The patient has palpitation, chest pain. CHEST: The patient complains of cough productive of a yellow sputum. The patient denies wheezes. ABDOMEN: The patient denies nausea, vomiting, diarrhea, or constipation. GENITOURINARY: The patient denies dysuria or increased frequency of urination. NEUROMUSCULAR: The patient denies seizures or generalized weakness. PAST MEDICAL HISTORY: Significant for: 1. Multiple sclerosis, diagnosed in 1995. 2. Systemic lupus diagnosed in 2007. 3. Hypertension. 4. History of migraine headaches. PAST SURGICAL HISTORY: Significant for bilateral tubal ligation. CURRENT MEDICATIONS: 1. Acyclovir 400 mg p.o. daily. 2. Albuterol metered-dose inhaler 2 puffs p.o. q.i.d. p.r.n. 3. Zyrtec 10 mg p.o. daily. 4. Hydrocodone/acetaminophen 5/325 mg 1 tablet p.o. q.6 hours p.r.n. 5. Ibuprofen 800 mg p.o. q.8 hours p.r.n. 6. Lidocaine patch is applied daily. 7. Robaxin 750 mg p.o. 3 times daily. 8. Prednisone 40 mg p.o. daily. 9. Plaquenil 400 mg p.o. daily. ALLERGIES: Tegretol. SOCIAL HISTORY: The patient is single and lives with her mother and daughter. The patient denies tobacco use. The patient admits to occasional alcohol use. PHYSICAL EXAMINATION: VITAL SIGNS: Temperature 100.9 to 101.0, pulse 111 to 114, respiratory rate 22, blood pressure 121 to 126/70 to 78. GENERAL: The patient is well-developed, well-nourished, slightly obese female, in no apparent distress. HEENT: Eyes, pupils equal and responsive to light and accommodation. Extraocular movements are intact. NECK: Supple without lymphadenopathy. CHEST: Lungs are clear to auscultation bilaterally without wheezes or rales. CARDIOVASCULAR: Regular rate. S1 and S2 are normal without murmurs, rubs, or gallops. ABDOMEN: Soft, nontender, nondistended. Positive bowel sounds. No evidence of hepatosplenomegaly. Currently, no rebound or guarding noted. EXTREMITIES: Negative for clubbing, cyanosis, or edema. RECTAL/GENITAL: Refused. NEUROLOGIC: Cranial nerves II through XII are grossly intact without focal deficits. Motor strength is 5/5 bilaterally. Deep tendon reflexes are 2+ plantar. LABORATORY STUDIES: WBC 7.5, hemoglobin 9.5, hematocrit 30.5, platelets 302,000. Sodium 140, potassium 3.1, chloride 102, CO2 24, BUN 10, creatinine 1.0, glucose 83. Troponin elevated at 0.16. Chest x-ray is reported as no acute disease. ASSESSMENT: This is a 43-year-old female. 1. Fever. 2. Cough. 3. Systemic lupus. 4. Multiple sclerosis. 5. Hypertension. 6. History of migraine headaches. TREATMENT: 1. Fever/chills/cough. An Infectious Disease consultation has been obtained with Dr. Chavarria. Blood cultures are pending. Initial chest x-ray was reported as no acute disease. The patient has been started empirically on ceftriaxone. Await culture results. 2. Hypertension. The patient is currently not taking antihypertensive medication at home. The patient will be started on clonidine 0.1 mg p.r.n. 3. Systemic lupus. 4. Multiple sclerosis. 5. Migraine headache. Leonid Rasta Salmeron DR: TERESA JOB#: [id number] CC:
--- NOTE | 2018-12-05 16:53 | Cardiology Report ---
APPROVED REPORT EXAM: Two-dimensional and M-mode echocardiogram with Doppler and color Doppler. INDICATION [place] M-Mode DIMENSIONS IVSd0.7 (0.7-1.1cm)Left Atrium (MM)3.6 (1.6-4.0cm) LVDd4.5 (3.5-5.6cm)Aortic Root2.8 (2.0-3.7cm) PWd1.1 (0.7-1.1cm)Aortic Cusp Exc.1.8 (1.5-2.0cm) LVDs2.5 (2.5-4.0cm) PWs1.7 cm Normal left ventricular chamber size, systolic function and wall motion. Left ventricular ejection fraction estimated to be 60-65 %. Mild left ventricular hypertrophy. No evidence of pricardial effusion. Left atrial size at upper limits of normal. Right cardiac chamber sizes are within normal limits. Focal aortic valve sclerosis with adequate cusp excursion. Thickened mitral valve leaflets with normal excursion. Mitral annulus and aortic root calcification. Pulmonic valve not well visualized. Normal tricuspid valve structure. IVC measured at 1.8 cm with slight physiologic collapse A color flow and spectral Doppler study was performed and revealed: No evidence aortic insufficiency. Mild to moderate mitral regurgitation. Normal left ventricular diastolic function . Trace tricuspid regurgitation. Tricuspid systolic velocities suggests peak right ventricular systolic pressure of 34 mmHg.
--- NOTE | 2018-12-05 17:00 | NUR ---
NURSE NOTES: PT MADE AWARE OF PENDING CT SCAN ORDERS. PT AGREES TO CONTRAST INJECTION FOR IMAGING. CONSENT PLACED IN CHART.
--- NOTE | 2018-12-05 17:15 | Cardiology Report ---
APPROVED REPORT EKG Measurement Heart [id number] Normal sinus rhythm Normal ECG
--- NOTE | 2018-12-05 17:22 | Cardiology Report ---
APPROVED REPORT EKG Measurement Heart [id number] Sinus tachycardia Otherwise normal ECG
[2018-12-05] MEDS ORDERED: Isovue-300 100ml vial INJ PRN ×3 (17:30)
--- NOTE | 2018-12-05 19:10 | NUR ---
NURSE NOTES: Received a report from NOE Callejas. Pt is in stable condition. AAOX4. Able to make needs known. Family members at the bedside. IV site is patent and intact. Bed in lowest position. Call light within reach. Will continue to monitor.
--- NOTE | 2018-12-05 19:24 | NUR ---
HAND-OFF: Report given to Semaj ALANIZ RN.
[2018-12-05] MEDS: cefTRIAXone 1 GM in D5W 55 ML IVPB SCH (23:46)
--- NOTE | 2018-12-06 01:00 | NUR ---
NURSE NOTES: Contacted Dr. Gonzalez regarding the complain of muscle spasm of the pt. He ordered Robaxin one time only. Will continue to monitor
[2018-12-06] MEDS: Albuterol 90mcg Inhaler 8gm INH PRN ×2 (02:00→19:26)
[2018-12-06] MEDS ORDERED: Methocarbamol 750mg tab ORAL SCH (02:00)
[2018-12-06 04:00] VITALS: BP 137/87
--- NOTE | 2018-12-06 07:00 | NUR ---
HAND-OFF: Report given to Julieta Antony RN.
[2018-12-06 07:18] LABS: BASOPHILS % (AUTO) 1.2 % (0.0-2.0); EOSINOPHILS % (AUTO) 0.1 % (0.0-3.0); HEMATOCRIT 27.1 % (37.0-47.0); HEMOGLOBIN 8.4 G/DL (12.0-16.0); MEAN CORPUSCULAR VOLUME 77 FL (80-99); MONOCYTES % (AUTO) 6.4 % (1.0-10.0); NEUTROPHILS % (AUTO) 40.3 % (45.0-75.0); PLATELET COUNT 290 K/UL (150-450); RED BLOOD COUNT 3.52 M/UL (4.20-5.40); RED CELL DISTRIBUTION WIDTH 14.9 % (11.6-14.8); WHITE BLOOD COUNT 4.7 K/UL (4.8-10.8)
[2018-12-06 07:19] LABS: ANION GAP 10 mmol/L (5-15); BLOOD UREA NITROGEN 9 mg/dL (7-18); CALCIUM 8.5 MG/DL (8.5-10.1); CARBON DIOXIDE 25 MMOL/L (21-32); CHLORIDE 108 MMOL/L (98-107); CREATININE 0.6 MG/DL (0.55-1.30); POTASSIUM 3.4 MMOL/L (3.5-5.1); SODIUM 143 MMOL/L (136-145)
--- NOTE | 2018-12-06 07:29 | NUR ---
NURSE NOTES: Received report from NOE Alva. Pt in bed, asleep, respirations unlabored, bed in lowest position, call light within reach.
[2018-12-06 08:00] VITALS: BP 139/94
[2018-12-06] MEDS: Benzonatate 100mg Perles ORAL SCH ×3 (09:00→17:10)
[2018-12-06] MEDS: Methocarbamol 750mg tab ORAL SCH ×3 (09:00→17:10)
--- NOTE | 2018-12-06 09:41 | NUR ---
NURSE NOTES: Notified Denisha Yip 3.4
[2018-12-06] MEDS: Norco 5mg/325mg tab ORAL PRN ×2 (10:45→20:52)
[2018-12-06 11:19] VITALS: BP 136/93
--- NOTE | 2018-12-06 11:56 | Diagnostic Imaging Report ---
APPROVED REPORT CPT Code: 10711 Present Symptoms Comments: BILATERAL LEGS PAIN. BILATERAL: Imaging reveals a patent deep venous system bilaterally. There is no evidence of thrombus within the femoral, popliteal or tibial segments. The greater saphenous veins are also within normal limits. Doppler indicates normal spontaneous flow within these segments.
--- NOTE | 2018-12-06 11:59 | Consultation ---
History of Present Illness General Date patient seen: Dec 06, 2018 Chief Complaint: Flu Like Symptoms Present Illness HPI 43-year-old female with hx of lupus, Asthma and MS presented to ER with cc of fever since September. Patient denies any severe headache. She reports having increased cough and sore throat.Patient denies any new weakness or vomiting. She denies any dysuria. Allergies: Coded Allergies: CARBAMAZEPINE (Unverified Allergy, Unknown, 09/25/14) Medication History Scheduled Acyclovir* (Acyclovir*), 400 MG ORAL DAILY, (Reported) Azithromycin* (Zithromax*), 250 MG ORAL DAILY Benzonatate (Tessalon Perle), 100 MG ORAL THREE TIMES A DAY, (Reported) Cetirizine Hcl (Zyrtec), 10 MG ORAL DAILY, (Reported) Cetirizine Hcl* (Zyrtec*), 10 MG ORAL DAILY Doxycycline Hyclate (Doxycycline Hyclate), 100 MG ORAL EVERY 12 HOURS Levofloxacin* (Levaquin*), 500 MG ORAL DAILY Lidocaine (Lidoderm), 1 PATCH TOPIC DAILY Methocarbamol* (Robaxin-750*), 750 MG PO TID Prednisone* (Prednisone*), 40 MG ORAL DAILY [plaquenil], 400 MG ORAL DAILY, (Reported) Scheduled PRN Albuterol Sulfate* (Albuterol Sulfate Mdi*), 2 PUFF INH Q4H PRN for cough/ wheezing Hydrocodone Bit/Acetaminophen 5-325* ([place] 5-325*), 1 TAB ORAL Q6H PRN for For Pain Ibuprofen (Ibuprofen), 800 MG PO Q8HR PRN for FEVER, (Reported) Patient History Healthcare decision maker Resuscitation status Full Code Advanced Directive on File No Family History Family History: (1) History of lupus (2) Multiple sclerosis (3) Migraine (4) History of systemic lupus erythematosus (SLE) Review of Systems All Other Systems: negative except mentioned in HPI Physical Exam General Appearance: WD/WN, no apparent distress Lines, tubes and drains: peripheral HEENT: normocephalic, atraumatic Neck: non-tender, normal alignment Respiratory/Chest: chest wall non-tender, lungs clear Breasts: no masses Cardiovascular/Chest: normal peripheral pulses Abdomen: normal bowel sounds, non tender Genitourinary/Rectal: normal genital exam Extremities: normal range of motion Skin Exam: normal pigmentation Last 24 Hour Vital Signs Date Time Temp Pulse Resp B/P (MAP) Pulse Ox O2 Delivery O2 Flow Rate FiO2 12/06/18 11:19 98.2 82 16 136/93 (107) 98 12/06/18 11:15 98.2 12/06/18 09:44 87 18 Room Air 21 12/06/18 09:00 Room Air 12/06/18 08:00 97.7 74 16 139/94 (109) 97 12/06/18 04:00 98.2 74 18 137/87 (104) 98 12/06/18 02:04 70 20 98 Room Air 21 12/06/18 02:00 69 20 98 Room Air 21 12/05/18 23:35 97.9 69 19 132/82 (99) 97 12/05/18 21:00 Room Air 12/05/18 20:13 84 18 Room Air 21 12/05/18 20:00 98.7 78 18 137/83 (101) 99 12/05/18 16:00 98.8 89 18 128/81 (97) 98 12/05/18 13:14 100 18 92 Room Air 21 12/05/18 13:13 100 18 92 Room Air 21 12/05/18 12:00 98.5 93 19 126/76 (93) 95 Intake and Output 12/05/18 12/06/18 19:00 07:00 Intake Total 1200 ml 55 ml Balance 1200 ml 55 ml IV Total 55 ml Other 1200 ml # Voids 3 Laboratory Tests Test 12/06/18 05:40 White Blood Count 4.7 K/UL (4.8-10.8) L Red Blood Count 3.52 M/UL (4.20-5.40) L Hemoglobin 8.4 G/DL (12.0-16.0) L Hematocrit 27.1 % (37.0-47.0) L Mean Corpuscular Volume 77 FL (80-99) L Mean Corpuscular Hemoglobin 23.8 PG (27.0-31.0) L Mean Corpuscular Hemoglobin Concent 31.0 G/DL (32.0-36.0) L Red Cell Distribution Width 14.9 % (11.6-14.8) H Platelet Count 290 K/UL (150-450) Mean Platelet Volume 5.4 FL (6.5-10.1) L Neutrophils (%) (Auto) 40.3 % (45.0-75.0) L Lymphocytes (%) (Auto) 52.0 % (20.0-45.0) H Monocytes (%) (Auto) 6.4 % (1.0-10.0) Eosinophils (%) (Auto) 0.1 % (0.0-3.0) Basophils (%) (Auto) 1.2 % (0.0-2.0) Erythrocyte Sedimentation Rate 48 MM/HR (0-20) H Sodium Level 143 MMOL/L (136-145) Potassium Level 3.4 MMOL/L (3.5-5.1) L Chloride Level 108 MMOL/L (98-107) H Carbon Dioxide Level 25 MMOL/L (21-32) Anion Gap 10 mmol/L (5-15) Blood Urea Nitrogen 9 mg/dL (7-18) Creatinine 0.6 MG/DL (0.55-1.30) Estimat Glomerular Filtration Rate > 60 mL/min (>60) Glucose Level 76 MG/DL (74-106) Calcium Level 8.5 MG/DL (8.5-10.1) C-Reactive Protein, Quantitative 5.9 mg/dL (0.00-0.90) H Rheumatoid Factor Screen Pending Cyclic Citrullinated Peptide IgG Ab Pending Anti-Nuclear Antibody Screen Pending c-ANCA Titer Pending p-ANCA Titer Pending Anti-Double Strand DNA Antibody Pending Rapid Plasma Reagin Pending Coccidioides Antibody (Comp Fix) Pending Hepatitis A IgM Antibody Pending Hepatitis B Surface Antigen Pending Hepatitis B Core IgM Antibody Pending Hepatitis C Antibody Pending HIV (1&2) Antibody Rapid Negative (NEGATIVE) Q Fever Phase I IgG Antibody Pending Q Fever Phase II IgG Antibody Pending Rickettsia IgG Ab ([place] Fever) Pending Rickettsia IgM Ab ([place] Fever) Pending Height (Feet): 5 Height (Inches): 1.00 Weight (Pounds): 170 Medications Current Medications Medications (Trade) Dose Ordered Sig/Aileen Route PRN Reason Start Time Stop Time Status Last Admin Dose Admin Acetaminophen/ Hydrocodone Bitart ([place] 5/325) 1 tab Q6H PRN ORAL For Pain 12/05/18 06:00 12/12/18 05:59 12/06/18 10:45 Albuterol Sulfate (Proventil MDI) 2 puff Q4H PRN INH cough/wheezing 12/05/18 06:00 01/04/19 05:59 12/06/18 02:00 Barium Sulfate (Readi-Cat 2) 450 ml NOW PRN ORAL Radiology Procedure 12/05/18 17:30 12/07/18 17:17 Benzonatate (Tessalon Perles) 100 mg THREE TIMES A DAY ORAL 12/05/18 09:00 01/04/19 08:59 12/05/18 17:59 Ceftriaxone Sodium 1 gm/ Dextrose 55 ml @ 110 mls/hr Q24H IVPB 12/06/18 00:00 12/13/18 00:00 12/05/18 23:46 Doxycycline Monohydrate (Vibramycin) 100 mg EVERY 12 HOURS ORAL 12/05/18 21:00 12/12/18 20:59 12/05/18 20:47 Ibuprofen (Motrin) 800 mg Q8H PRN ORAL FEVER 12/05/18 06:00 01/04/19 05:59 12/05/18 10:42 Iopamidol (Isovue-300 100ml) 100 ml NOW PRN INJ Radiology Procedure 12/05/18 17:30 12/07/18 17:17 Iopamidol (Isovue-300 100ml) 100 ml NOW PRN INJ Radiology Procedure 12/05/18 17:30 12/07/18 17:17 Iopamidol (Isovue-300 100ml) 100 ml NOW PRN INJ Radiology Procedure 12/05/18 17:30 12/07/18 17:29 Methocarbamol (Robaxin) 750 mg TID ORAL 12/05/18 09:00 01/04/19 08:59 12/05/18 17:59 Prednisone (predniSONE) 40 mg DAILY ORAL 12/05/18 09:00 01/04/19 08:59 12/05/18 09:11 Promethazine HCl/ Codeine (Phenergan with Codeine) 5 ml Q4H PRN ORAL For Cough 12/05/18 12:15 01/04/19 12:14 12/05/18 17:59 Assessment/Plan Problem List: (1) Acute febrile illness ICD Codes: R50.9 - Fever, unspecified SNOMED: 153987221 (2) Influenza-like symptoms ICD Codes: R68.89 - Other general symptoms and signs SNOMED: 805097067 (3) Multiple sclerosis ICD Codes: G35 - Multiple sclerosis SNOMED: 11954503 (4) History of lupus ICD Codes: M32.9 - Systemic lupus erythematosus, unspecified SNOMED: 566787897 (5) Hypertension ICD Codes: I10 - Essential (primary) hypertension SNOMED: 57110358 Assessment/Plan Lozada culture iv abx ID evaluation check sputum urine analysis dvt prophylaxis. Kadeem Lainez MD Dec 06, 2018 11:59
--- NOTE | 2018-12-06 13:03 | Diagnostic Imaging Report ---
CLINICAL INDICATION:History of seronegative lupus, multiple sclerosis, asthma, pneumonia, increasing fever, intermittent fever, cough, sore throat, and explain weight loss TECHNIQUE: Patient ingested oral contrast. IV administration nonionic contrast. Multiphasic spiral acquisitions obtained through the chest, abdomen, and pelvis. Multiplanar reconstructions were generated. Total dose length product 5202 mGycm. CTDIvol(s) 70.38,13.23,70.38,15.63 mGy. Radiation dose was minimized using automated exposure control COMPARISON: Chest compared to 11/09/2018 noncontrast study. No comparison abdomen pelvis CT FINDINGS Chest: Parenchymal opacity in the lateral periphery of the upper portion of the right lower lobe is again demonstrated. There is a slight degree of surrounding groundglass opacity. This appears essentially unchanged from previous exam. Previously demonstrated opacity along the minor fissure in the right lung is no longer evident. Areas of pleural thickening along the posterior right lower lobe pleural surface appear unchanged. Irregular opacity in the anterior inferior right middle lobe appears unchanged. Faint parenchymal opacities in the left costophrenic sulcus are unchanged. Small area of opacity in the inferior lingula appears unchanged. Small new pleural-based opacity is seen in the inferolateral lingula. There is a 2 mm nodule, likely calcified, in the anterior periphery of the left lower lobe. Patchy areas of groundglass opacity in the medial anterior left upper lobe is now evident, not evident previously. No effusions are evident. Previously demonstrated trace right pleural effusion is no longer present. No definite congestion. The heart is upper limits normal in size. The included thyroid is unremarkable. No pericardial effusion. No mediastinal or hilar mass or adenopathy. No axillary or chest wall mass or adenopathy. The bones are unremarkable. The esophagus is unremarkable. Abdomen pelvis: The appendix is upper limits normal in caliber, otherwise unremarkable. No evidence of diverticulosis or diverticulitis. The rectum is mildly distended with stool. There is no rectal wall thickening evident. No small bowel distention or small bowel wall thickening. No free or loculated intraperitoneal gas or fluid is evident. The liver, gallbladder, bile ducts, pancreas, adrenals are unremarkable. The spleen is borderline enlarged, measuring 13 cm long axis dimension. The kidneys are unremarkable. No renal or ureteral calculi, hydronephrosis, hydroureter. The bladder is nondistended. The uterus is enlarged, contains multiple masses demonstrating varying degrees of enhancement. No pelvic adenopathy demonstrated. The bones are unremarkable except for a right acetabular bone island. IMPRESSION: Right lower lobe opacity. This is essentially unchanged from prior exam of 11/09/2018, may represent an area of chronic scarring, although could represent residual acute infiltrate. Multiple other areas of parenchymal opacity, mostly subpleural, likely representing areas of parenchymal scarring as well. New groundglass opacity in the left upper lobe, likely represents an area of acute infectious or noninfectious inflammation Probable left lung calcified granuloma again demonstrated Interim resolution of previously demonstrated trace right pleural effusion Mild rectal distention with stool No acute abdominal process otherwise Borderline splenomegaly Enlarged fibroid uterus The CT scanner at [facility] is accredited by the [employer] and the scans are performed using protocols designed to limit radiation exposure to as low as reasonably achievable to attain images of sufficient resolution adequate for diagnostic evaluation.
--- NOTE | 2018-12-06 13:41 | Infectious Diseases Prog Note ---
Assessment/Plan Assessment/Plan Abx: Ceftriaxone 12/05- Assessment: Fever of unknown origin (since Mid Sep 2018)- r/o Lymphoma, flare of Lupus or other autoimmune/inflammatory disorder (ie Sarcoidosis)- infectious process seems less likely but r/o atypical infections such as rickettsia, q fever, brucella, HIV. -CT head: Minimal periventricular deep white matter low-attenuation consistent with chronic ischemic changes. Minimal cortical volume loss Otherwise negative. No evidence of acute intracranial bleed, mass effect, or contrast enhancing lesion -CT neck: Bilateral mild cervical lymphadenopathy. Nonspecific as regards etiology, could be reactive, inflammatory, or neoplastic. No other significant abnormality demonstrated -12/05 CT c/abd/p: Right lower lobe opacity. This is essentially unchanged from prior exam of 11/09/2018, may represent an area of chronic scarring, although could represent residual acute infiltrate. Multiple other areas of parenchymal opacity, mostly subpleural, likely representing areas of parenchymal scarring as well. New groundglass opacity in the left upper lobe, likely represents an area of acute infectious or noninfectious inflammation. Probable left lung calcified granuloma again demonstrated. Interim resolution of previously demonstrated trace right pleural effusion. Mild rectal distention with stool. No acute abdominal process otherwise. Borderline splenomegaly. Enlarged fibroid uterus -CT head/neck p -neg: HIV ab sc -CXR: No acute findings -u/a neg -influenza sc neg -Bcx NTD -ESR 48, CRP 5.9 -11/09 CT chest wo: Consolidation within the right lower lobe with subtle nodular ground glass opacities seen within the remainder of both lungs. Findings likely represent an inflammatory or infectious process. Trace right- sided pleural effusion. Cervical lymphadenopathy No leukocytosis, no mild leukopenia Anemia seronegative lupus Multiple sclerosis asthma hx of PNA Plan: -Continue empiric Ceftriaxone and Doxycycline #2 for now -Lymph node biopsy lymph node nodes -send tissue for biopsy and cultures -f/u cx -Monitor CBC/CMP, temperatures -f/u RPR, Brucella ab, Q fever ab, bartonella ab -f/u Rheum w/u -Neuro and Rheum evaluation recommended -LDH, NOY level am Thank you for this consultation. Will continue to follow along with you. Discussed with RN. Subjective Allergies: Coded Allergies: CARBAMAZEPINE (Unverified Allergy, Unknown, 09/25/14) Objective Vital Signs Last 24 Hour Vital Signs Date Time Temp Pulse Resp B/P (MAP) Pulse Ox O2 Delivery O2 Flow Rate FiO2 12/06/18 11:19 98.2 82 16 136/93 (107) 98 12/06/18 11:15 98.2 12/06/18 09:44 87 18 Room Air 21 12/06/18 09:00 Room Air 12/06/18 08:00 97.7 74 16 139/94 (109) 97 12/06/18 04:00 98.2 74 18 137/87 (104) 98 12/06/18 02:04 70 20 98 Room Air 21 12/06/18 02:00 69 20 98 Room Air 21 12/05/18 23:35 97.9 69 19 132/82 (99) 97 12/05/18 21:00 Room Air 12/05/18 20:13 84 18 Room Air 21 12/05/18 20:00 98.7 78 18 137/83 (101) 99 12/05/18 16:00 98.8 89 18 128/81 (97) 98 Height (Feet): 5 Height (Inches): 1.00 Weight (Pounds): 170 Objective General Appearance: normal inspection, well appearing, no apparent distress, alert, , non-toxic Head: atraumatic ENT: normal ENT inspection, hearing grossly normal, normal voice Neck: normal inspection, full range of motion, supple, no bony tend Respiratory: normal inspection, lungs clear, normal breath sounds, no respiratory distress, no retraction, no wheezing Cardiovascular : regular rate, rhythm, no edema Gastrointestinal: normal inspection, normal bowel sounds, non tender, soft, no guarding, no hernia Genitourinary: no CVA tenderness Musculoskeletal: normal inspection, back normal, normal range of motion Neurologic: normal inspection, alert, oriented x3, responsive, director of compensation III-XII nml as tested, speech normal Psychiatric: normal inspection, judgement/insight normal, mood/affect normal Skin: normal inspection, normal color, no rash Microbiology Date/Time Source Procedure Growth Status 12/04/18 23:05 Blood Blood Culture - Preliminary NO GROWTH AFTER 24 HOURS Resulted 12/04/18 22:50 Blood Blood Culture - Preliminary NO GROWTH AFTER 24 HOURS Resulted 12/04/18 23:05 Nasal Nares Influenza Types A,B Antigen (CASSANDRA) - Final Complete Laboratory Tests Test 12/06/18 05:40 White Blood Count 4.7 K/UL (4.8-10.8) L Red Blood Count 3.52 M/UL (4.20-5.40) L Hemoglobin 8.4 G/DL (12.0-16.0) L Hematocrit 27.1 % (37.0-47.0) L Mean Corpuscular Volume 77 FL (80-99) L Mean Corpuscular Hemoglobin 23.8 PG (27.0-31.0) L Mean Corpuscular Hemoglobin Concent 31.0 G/DL (32.0-36.0) L Red Cell Distribution Width 14.9 % (11.6-14.8) H Platelet Count 290 K/UL (150-450) Mean Platelet Volume 5.4 FL (6.5-10.1) L Neutrophils (%) (Auto) 40.3 % (45.0-75.0) L Lymphocytes (%) (Auto) 52.0 % (20.0-45.0) H Monocytes (%) (Auto) 6.4 % (1.0-10.0) Eosinophils (%) (Auto) 0.1 % (0.0-3.0) Basophils (%) (Auto) 1.2 % (0.0-2.0) Erythrocyte Sedimentation Rate 48 MM/HR (0-20) H Sodium Level 143 MMOL/L (136-145) Potassium Level 3.4 MMOL/L (3.5-5.1) L Chloride Level 108 MMOL/L (98-107) H Carbon Dioxide Level 25 MMOL/L (21-32) Anion Gap 10 mmol/L (5-15) Blood Urea Nitrogen 9 mg/dL (7-18) Creatinine 0.6 MG/DL (0.55-1.30) Estimat Glomerular Filtration Rate > 60 mL/min (>60) Glucose Level 76 MG/DL (74-106) Calcium Level 8.5 MG/DL (8.5-10.1) C-Reactive Protein, Quantitative 5.9 mg/dL (0.00-0.90) H Rheumatoid Factor Screen Pending Cyclic Citrullinated Peptide IgG Ab Pending Anti-Nuclear Antibody Screen Pending c-ANCA Titer Pending p-ANCA Titer Pending Anti-Double Strand DNA Antibody Pending Rapid Plasma Reagin Pending Coccidioides Antibody (Comp Fix) Pending Hepatitis A IgM Antibody Pending Hepatitis B Surface Antigen Pending Hepatitis B Core IgM Antibody Pending Hepatitis C Antibody Pending HIV (1&2) Antibody Rapid Negative (NEGATIVE) Q Fever Phase I IgG Antibody Pending Q Fever Phase II IgG Antibody Pending Rickettsia IgG Ab ([facility] Fever) Pending Rickettsia IgM Ab ([facility] Fever) Pending Current Medications Medications (Trade) Dose Ordered Sig/Aileen Route PRN Reason Start Time Stop Time Status Last Admin Dose Admin Acetaminophen/ Hydrocodone Bitart ([place] 5/325) 1 tab Q6H PRN ORAL For Pain 12/05/18 06:00 12/12/18 05:59 12/06/18 10:45 Albuterol Sulfate (Proventil MDI) 2 puff Q4H PRN INH cough/wheezing 12/05/18 06:00 01/04/19 05:59 12/06/18 02:00 Barium Sulfate (Readi-Cat 2) 450 ml NOW PRN ORAL Radiology Procedure 12/05/18 17:30 12/07/18 17:17 Benzonatate (Tessalon Perles) 100 mg THREE TIMES A DAY ORAL 12/05/18 09:00 01/04/19 08:59 12/06/18 12:19 Ceftriaxone Sodium 1 gm/ Dextrose 55 ml @ 110 mls/hr Q24H IVPB 12/06/18 00:00 12/13/18 00:00 12/05/18 23:46 Doxycycline Monohydrate (Vibramycin) 100 mg EVERY 12 HOURS ORAL 12/05/18 21:00 12/12/18 20:59 12/05/18 20:47 Ibuprofen (Motrin) 800 mg Q8H PRN ORAL FEVER 12/05/18 06:00 01/04/19 05:59 12/05/18 10:42 Iopamidol (Isovue-300 100ml) 100 ml NOW PRN INJ Radiology Procedure 12/05/18 17:30 12/07/18 17:17 Iopamidol (Isovue-300 100ml) 100 ml NOW PRN INJ Radiology Procedure 12/05/18 17:30 12/07/18 17:17 Iopamidol (Isovue-300 100ml) 100 ml NOW PRN INJ Radiology Procedure 12/05/18 17:30 12/07/18 17:29 Methocarbamol (Robaxin) 750 mg TID ORAL 12/05/18 09:00 01/04/19 08:59 12/06/18 12:21 Prednisone (predniSONE) 40 mg DAILY ORAL 12/05/18 09:00 01/04/19 08:59 12/05/18 09:11 Promethazine HCl/ Codeine (Phenergan with Codeine) 5 ml Q4H PRN ORAL For Cough 12/05/18 12:15 01/04/19 12:14 12/05/18 17:59 Jany Eason M.D. Dec 06, 2018 13:41
--- NOTE | 2018-12-06 14:00 | NUR ---
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 98.2 HR 82 RR 16 B/P 136/93 RA 98% ESR 48 K 3.4 CR 5.9 IS: CEFTRIAXONE IV VIBRAMYCIN PO PREDNISONE PO ROBAXIN PO ALB HHN MED/SURG STATUS
--- NOTE | 2018-12-06 15:47 | Diagnostic Imaging Report ---
Indication: Palpable cervical lymphadenopathy. History of lupus, fever Technique: IV administration nonionic contrast. Spiral acquisitions obtained through the neck. Multiplanar reconstructions were generated. Total dose length product 5202 mGycm. CTDIvol(s) 70.38,13.23,70.38,15.63 mGy. Dose reduction achieved using automated exposure control Comparison: none Findings: There are abundant mildly enlarged cervical nodes bilaterally. The largest nodes are in the left supraclavicular region measuring up to 20 mm long axis dimension. Overall ignacio architecture is preserved, however. The nasopharynx, oropharynx, hypopharynx and larynx are all unremarkable. The salivary glands are unremarkable. Included thyroid is unremarkable. There is extensive bilateral maxillary and ethmoids and sphenoid sinus opacification. The bones are unremarkable. Intact dentition. Impression: Bilateral mild cervical lymphadenopathy. Nonspecific as regards etiology, could be reactive, inflammatory, or neoplastic. No other significant abnormality demonstrated Findings previously discussed by phone with Dr. Eason The CT scanner at [facility] is accredited by the [employer] and the scans are performed using protocols designed to limit radiation exposure to as low as reasonably achievable to attain images of sufficient resolution adequate for diagnostic evaluation.
--- NOTE | 2018-12-06 15:54 | Diagnostic Imaging Report ---
Indication: Infection, fever, history of seronegative lupus, Weight loss, headache Technique: Spiral acquisitions obtained through the brain pre- and post-IV contrast administration. Angled axial and coronal 5 x 5 mm slices reconstructed. Total dose length product 5202 mGycm. CTDIvol(s) 70.38,13.23,70.38,15.63 mGy. Dose reduction achieved using automated exposure control Comparison: none Findings: Precontrast images demonstrate no evidence of intracranial hemorrhage or edema, mass effect, nor midline shift. There is minimal prominence to the cortical sulci There is minimal periventricular deep white matter low-attenuation consistent with chronic ischemic change. Normal decker-white differentiation. Incidental finding of empty sella noted. The calvarium is intact. There is extensive pansinus disease. The orbits are unremarkable. The mastoids are clear. Postcontrast images demonstrate no evidence of unusual contrast enhancement. Impression: Minimal periventricular deep white matter low-attenuation consistent with chronic ischemic changes. Minimal cortical volume loss Otherwise negative. No evidence of acute intracranial bleed, mass effect, or contrast enhancing lesion The CT scanner at [facility] is accredited by the [employer] and the scans are performed using protocols designed to limit radiation exposure to as low as reasonably achievable to attain images of sufficient resolution adequate for diagnostic evaluation.
[2018-12-06 16:00] VITALS: BP 140/95
--- NOTE | 2018-12-06 16:14 | NUR ---
NURSE NOTES: Notified Dr. Gonzalez, pt has had an unrelieved headache since 1030 Am, despite taking Holland, laying in Trendelenberg and drinking coffee. Addendum: 12/06/18 at 1615 by ANA MARIA GROSS RN Pt states pain is 07/18
--- NOTE | 2018-12-06 17:30 | Internal Med Progress Note ---
Subjective Physician Name FaviolaLeonid Attending Physician Jason Gonzalez MD Current Medications Medications (Trade) Dose Ordered Sig/Aileen Route PRN Reason Start Time Stop Time Status Last Admin Dose Admin Acetaminophen/ Hydrocodone Bitart ([place] 5/325) 1 tab Q6H PRN ORAL For Pain 12/05/18 06:00 12/12/18 05:59 12/06/18 10:45 Albuterol Sulfate (Proventil MDI) 2 puff Q4H PRN INH cough/wheezing 12/05/18 06:00 01/04/19 05:59 12/06/18 02:00 Barium Sulfate (Readi-Cat 2) 450 ml NOW PRN ORAL Radiology Procedure 12/05/18 17:30 12/07/18 17:17 Benzonatate (Tessalon Perles) 100 mg THREE TIMES A DAY ORAL 12/05/18 09:00 01/04/19 08:59 12/06/18 17:10 Ceftriaxone Sodium 1 gm/ Dextrose 55 ml @ 110 mls/hr Q24H IVPB 12/06/18 00:00 12/13/18 00:00 12/05/18 23:46 Doxycycline Monohydrate (Vibramycin) 100 mg EVERY 12 HOURS ORAL 12/05/18 21:00 12/12/18 20:59 12/05/18 20:47 Ibuprofen (Motrin) 800 mg Q8H PRN ORAL FEVER 12/05/18 06:00 01/04/19 05:59 12/05/18 10:42 Iopamidol (Isovue-300 100ml) 100 ml NOW PRN INJ Radiology Procedure 12/05/18 17:30 12/07/18 17:17 Iopamidol (Isovue-300 100ml) 100 ml NOW PRN INJ Radiology Procedure 12/05/18 17:30 12/07/18 17:17 Iopamidol (Isovue-300 100ml) 100 ml NOW PRN INJ Radiology Procedure 12/05/18 17:30 12/07/18 17:29 Methocarbamol (Robaxin) 750 mg TID ORAL 12/05/18 09:00 01/04/19 08:59 12/06/18 17:10 Prednisone (predniSONE) 40 mg DAILY ORAL 12/05/18 09:00 01/04/19 08:59 12/05/18 09:11 Promethazine HCl/ Codeine (Phenergan with Codeine) 5 ml Q4H PRN ORAL For Cough 12/05/18 12:15 01/04/19 12:14 12/05/18 17:59 Sumatriptan Succinate (Imitrex) 50 mg ONCE ORAL 12/06/18 18:00 12/06/18 20:00 12/06/18 17:11 Allergies: Coded Allergies: CARBAMAZEPINE (Unverified Allergy, Unknown, 09/25/14) Objective Last Vital Signs Date Time Temp Pulse Resp B/P (MAP) Pulse Ox O2 Delivery O2 Flow Rate FiO2 12/06/18 16:00 96.8 80 16 140/95 (110) 97 12/06/18 09:44 Room Air 21 Laboratory Tests Test 12/06/18 05:40 White Blood Count 4.7 K/UL (4.8-10.8) L Red Blood Count 3.52 M/UL (4.20-5.40) L Hemoglobin 8.4 G/DL (12.0-16.0) L Hematocrit 27.1 % (37.0-47.0) L Mean Corpuscular Volume 77 FL (80-99) L Mean Corpuscular Hemoglobin 23.8 PG (27.0-31.0) L Mean Corpuscular Hemoglobin Concent 31.0 G/DL (32.0-36.0) L Red Cell Distribution Width 14.9 % (11.6-14.8) H Platelet Count 290 K/UL (150-450) Mean Platelet Volume 5.4 FL (6.5-10.1) L Neutrophils (%) (Auto) 40.3 % (45.0-75.0) L Lymphocytes (%) (Auto) 52.0 % (20.0-45.0) H Monocytes (%) (Auto) 6.4 % (1.0-10.0) Eosinophils (%) (Auto) 0.1 % (0.0-3.0) Basophils (%) (Auto) 1.2 % (0.0-2.0) Erythrocyte Sedimentation Rate 48 MM/HR (0-20) H Sodium Level 143 MMOL/L (136-145) Potassium Level 3.4 MMOL/L (3.5-5.1) L Chloride Level 108 MMOL/L (98-107) H Carbon Dioxide Level 25 MMOL/L (21-32) Anion Gap 10 mmol/L (5-15) Blood Urea Nitrogen 9 mg/dL (7-18) Creatinine 0.6 MG/DL (0.55-1.30) Estimat Glomerular Filtration Rate > 60 mL/min (>60) Glucose Level 76 MG/DL (74-106) Calcium Level 8.5 MG/DL (8.5-10.1) C-Reactive Protein, Quantitative 5.9 mg/dL (0.00-0.90) H Rheumatoid Factor Screen Pending Cyclic Citrullinated Peptide IgG Ab Pending Anti-Nuclear Antibody Screen Pending c-ANCA Titer Pending p-ANCA Titer Pending Anti-Double Strand DNA Antibody Pending Rapid Plasma Reagin Pending Coccidioides Antibody (Comp Fix) Pending Hepatitis A IgM Antibody Pending Hepatitis B Surface Antigen Pending Hepatitis B Core IgM Antibody Pending Hepatitis C Antibody Pending HIV (1&2) Antibody Rapid Negative (NEGATIVE) Q Fever Phase I IgG Antibody Pending Q Fever Phase II IgG Antibody Pending Rickettsia IgG Ab ([facility] Fever) Pending Rickettsia IgM Ab ([facility] Fever) Pending Microbiology Date/Time Source Procedure Growth Status 12/04/18 23:05 Blood Blood Culture - Preliminary NO GROWTH AFTER 24 HOURS Resulted 12/04/18 22:50 Blood Blood Culture - Preliminary NO GROWTH AFTER 24 HOURS Resulted 12/04/18 23:05 Nasal Nares Influenza Types A,B Antigen (CASSANDRA) - Final Complete Intake and Output 12/05/18 12/06/18 19:00 07:00 Intake Total 1200 ml 55 ml Balance 1200 ml 55 ml IV Total 55 ml Other 1200 ml # Voids 3 Objective PHYSICAL EXAMINATION: GENERAL: The patient is well-developed, well-nourished, slightly obese female, in no apparent distress. HEENT: Eyes, pupils equal and responsive to light and accommodation. Extraocular movements are intact. NECK: Supple without lymphadenopathy. CHEST: Lungs are clear to auscultation bilaterally without wheezes or rales. CARDIOVASCULAR: Regular rate. S1 and S2 are normal without murmurs, rubs, or gallops. ABDOMEN: Soft, nontender, nondistended. Positive bowel sounds. No evidence of hepatosplenomegaly. Currently, no rebound or guarding noted. EXTREMITIES: Negative for clubbing, cyanosis, or edema. RECTAL/GENITAL: Refused. NEUROLOGIC: Cranial nerves II through XII are grossly intact without focal deficits. Motor strength is 5/5 bilaterally. Deep tendon reflexes are 2+ Assessment/Plan Status: progressing Assessment/Plan ASSESSMENT: This is a 43-year-old female. 1. Fever. 2. Cough. 3. Systemic lupus. 4. Multiple sclerosis. 5. Hypertension. 6. History of migraine headaches. TREATMENT: 1. Fever/chills/cough. An Infectious Disease consultation has been obtained with Dr. Chavarria. Blood cultures are pending. Initial chest x-ray was reported as no acute disease. The patient has been started empirically on ceftriaxone and doxycycline. Await culture results. 2. Hypertension. The patient is currently not taking antihypertensive medication at home. The patient will be started on clonidine 0.1 mg p.r.n. 3. Systemic lupus. 4. Multiple sclerosis. 5. Migraine headache. Leonid Salmeron MD Dec 06, 2018 17:30
[2018-12-06] MEDS ORDERED: SUMAtriptan 50mg tab ORAL SCH (18:00)
[2018-12-06] MEDS ORDERED: Lidocaine 1% Plain 30 ml INJ PRN (18:45)
--- NOTE | 2018-12-06 19:00 | NUR ---
NURSE NOTES: Received a report from Julieta Antony RN. Pt is in stable condition. AAOX4. Able to make needs known. No c/o pain/discomfort. IV site is patent and intact. Bed in lowest position. Call light within reach. Will continue to monitor.
[2018-12-06] MEDS: Promethazine/Codeine 5ml UD ORAL PRN (19:08)
--- NOTE | 2018-12-06 19:13 | NUR ---
HAND-OFF: Report given to NOE Alva.
[2018-12-06 20:00] VITALS: BP 132/89
[2018-12-07] VITALS: BP 140/91
[2018-12-07] MEDS: cefTRIAXone 1 GM in D5W 55 ML IVPB SCH (00:20)
[2018-12-07 04:00] VITALS: BP 144/93
--- NOTE | 2018-12-07 07:00 | NUR ---
HAND-OFF: Report given to NOE Crane.
[2018-12-07 07:08] LABS: HEMATOCRIT 30.5 % (37.0-47.0); HEMOGLOBIN 9.7 G/DL (12.0-16.0); MEAN CORPUSCULAR VOLUME 75 FL (80-99); PLATELET COUNT 339 K/UL (150-450); RED BLOOD COUNT 4.04 M/UL (4.20-5.40); RED CELL DISTRIBUTION WIDTH 15.7 % (11.6-14.8); WHITE BLOOD COUNT 4.7 K/UL (4.8-10.8)
[2018-12-07 07:37] LABS: ANION GAP 11 mmol/L (5-15); BLOOD UREA NITROGEN 7 mg/dL (7-18); CALCIUM 8.6 MG/DL (8.5-10.1); CARBON DIOXIDE 25 MMOL/L (21-32); CHLORIDE 104 MMOL/L (98-107); CREATININE 0.8 MG/DL (0.55-1.30); POTASSIUM 3.8 MMOL/L (3.5-5.1); SODIUM 140 MMOL/L (136-145)
--- NOTE | 2018-12-07 08:00 | NUR ---
NURSE NOTES: patient is alert and oriented,sitting up in bed and eating breakfast,patient requesting her inhalers,will notify respiratory therapist,will monitor,call light within reach.
[2018-12-07 08:12] VITALS: BP 128/93
[2018-12-07] MEDS: Methocarbamol 750mg tab ORAL SCH ×3 (08:18→18:18)
[2018-12-07] MEDS: Benzonatate 100mg Perles ORAL SCH ×3 (08:19→18:18)
[2018-12-07] MEDS: Albuterol 90mcg Inhaler 8gm INH PRN (08:22)
[2018-12-07 12:55] VITALS: BP 140/91
--- NOTE | 2018-12-07 14:02 | Pre-Procedure Note/Attestation ---
Pre-Procedure Note/Attestation Complete Prior to Procedure Planned Procedure: left Procedure Narrative: US guided cervical node bx Indications for Procedure Pre-Operative Diagnosis: lymphadenopathy Attestation I attest that I discussed the nature of the procedure; its benefits; risks and complications; and alternatives (and the risks and benefits of such alternatives ), prior to the procedure, with the patient (or the patient's legal sales utility representative). I attest that, if there was a reasonable possibility of needing a blood transfusion, the patient (or the patient's legal sales utility representative) was given the [facility] standardized written summary, pursuant to the [place] Blood Safety Act ([place] Health and Safety Code # 1645, as amended). I attest that I re-evaluated the patient just prior to the surgery and that there has been no change in the patient's H&P, except as documented below: Satish Lane MD Dec 07, 2018 14:02
--- NOTE | 2018-12-07 14:11 | Brief Operative Note ---
Immediate Post Operative Note Operative Note Pre-op Diagnosis: lymphadenopathy Post-op Diagnosis: US guided L neck node bx Post-op Diagnosis: same as pre-op Findings: consistent w/pre-op dx studies Surgeon: Cecilia Lepe Specimen: yes - 5 18G cores Complications: none Condition: stable Fluids: none Implant(s) used?: No Satish Lepe MD Dec 07, 2018 14:11
--- NOTE | 2018-12-07 14:52 | NUR ---
NURSE NOTES: Patient back from Ultrasound,patient c/o headache,patient requesting pain medication,will give as ordered.
--- NOTE | 2018-12-07 15:00 | NUR ---
NURSE NOTES: patient back from ultrasound,patient had biopsy,band aid to the left side of neck in place,no bleeding noted,will monitor.
[2018-12-07] MEDS: Norco 5mg/325mg tab ORAL PRN (15:01)
--- NOTE | 2018-12-07 16:28 | Infectious Diseases Prog Note ---
Assessment/Plan Assessment/Plan Abx: Ceftriaxone 12/05- Assessment: Fever of unknown origin (since Mid Sep 2018)- r/o Lymphoma, flare of Lupus or other autoimmune/inflammatory disorder (ie Sarcoidosis)- infectious process seems less likely but r/o atypical infections such as rickettsia, q fever, brucella, HIV. -12/07 s/p L cervical lymph node US guided biopsy -CT head: Minimal periventricular deep white matter low-attenuation consistent with chronic ischemic changes. Minimal cortical volume loss. Otherwise negative. No evidence of acute intracranial bleed, mass effect, or contrast enhancing lesion -CT neck: Bilateral mild cervical lymphadenopathy. Nonspecific as regards etiology, could be reactive, inflammatory, or neoplastic. No other significant abnormality demonstrated -12/05 CT c/abd/p: Right lower lobe opacity. This is essentially unchanged from prior exam of 11/09/2018, may represent an area of chronic scarring, although could represent residual acute infiltrate. Multiple other areas of parenchymal opacity, mostly subpleural, likely representing areas of parenchymal scarring as well. New groundglass opacity in the left upper lobe, likely represents an area of acute infectious or noninfectious inflammation. Probable left lung calcified granuloma again demonstrated. Interim resolution of previously demonstrated trace right pleural effusion. Mild rectal distention with stool. No acute abdominal process otherwise. Borderline splenomegaly. Enlarged fibroid uterus -neg: HIV ab sc, RPR, FABIOLA, dsDNA, RF -CXR: No acute findings -u/a neg -influenza sc neg -Bcx NTD -ESR 48, CRP 5.9, LDH 331 -11/09 CT chest wo: Consolidation within the right lower lobe with subtle nodular ground glass opacities seen within the remainder of both lungs. Findings likely represent an inflammatory or infectious process. Trace right- sided pleural effusion. Cervical lymphadenopathy No leukocytosis, no mild leukopenia Anemia seronegative lupus Multiple sclerosis asthma hx of PNA Plan: -Continue empiric Ceftriaxone and Doxycycline #3 -can be discharged on PO Doxyccyline for 4 more days -f/u lymph node biopsy and cultures -if not conclusive can go after peripheral lung nodule biopsy (this can be done as outpatient) -f/u cx -Monitor CBC/CMP, temperatures -f/u Brucella ab, Q fever ab, bartonella ab, NOY level -f/u Rheum w/u -Neuro and Rheum evaluation recommended Thank you for this consultation. Will continue to follow along with you. Discussed with RN. Subjective Allergies: Coded Allergies: CARBAMAZEPINE (Unverified Allergy, Unknown, 09/25/14) Subjective afebrile >48hrs Bcx NTD for lymph node biopsy Objective Vital Signs Last 24 Hour Vital Signs Date Time Temp Pulse Resp B/P (MAP) Pulse Ox O2 Delivery O2 Flow Rate FiO2 12/07/18 12:55 86 18 140/91 (107) 97 12/07/18 09:00 Room Air 12/07/18 08:24 70 19 98 Room Air 21 12/07/18 08:23 69 19 Room Air 21 12/07/18 08:22 69 18 97 12/07/18 08:12 98.9 90 18 128/93 (105) 97 12/07/18 04:00 97.8 75 16 144/93 (110) 95 12/07/18 00:00 97.8 77 16 140/91 (107) 96 12/06/18 21:22 97.9 12/06/18 21:00 Room Air 12/06/18 20:00 97.9 87 18 132/89 (103) 100 12/06/18 19:28 88 18 Room Air 21 12/06/18 19:27 88 20 97 Room Air 21 12/06/18 19:26 88 20 97 Room Air 21 Height (Feet): 5 Height (Inches): 1.00 Weight (Pounds): 170 Objective General Appearance: normal inspection, well appearing, no apparent distress, alert, , non-toxic Head: atraumatic ENT: normal ENT inspection, hearing grossly normal, normal voice Neck: normal inspection, full range of motion, supple, no bony tend Respiratory: normal inspection, lungs clear, normal breath sounds, no respiratory distress, no retraction, no wheezing Cardiovascular : regular rate, rhythm, no edema Gastrointestinal: normal inspection, normal bowel sounds, non tender, soft, no guarding, no hernia Genitourinary: no CVA tenderness Musculoskeletal: normal inspection, back normal, normal range of motion Neurologic: normal inspection, alert, oriented x3, responsive, application support consultant III-XII nml as tested, speech normal Psychiatric: normal inspection, judgement/insight normal, mood/affect normal Skin: normal inspection, normal color, no rash Microbiology Date/Time Source Procedure Growth Status 12/04/18 23:05 Blood Blood Culture - Preliminary NO GROWTH AFTER 48 HOURS Resulted 12/04/18 22:50 Blood Blood Culture - Preliminary NO GROWTH AFTER 48 HOURS Resulted 12/04/18 23:05 Nasal Nares Influenza Types A,B Antigen (CASSANDRA) - Final Complete Laboratory Tests Test 12/07/18 06:25 White Blood Count 4.7 K/UL (4.8-10.8) L Red Blood Count 4.04 M/UL (4.20-5.40) L Hemoglobin 9.7 G/DL (12.0-16.0) L Hematocrit 30.5 % (37.0-47.0) L Mean Corpuscular Volume 75 FL (80-99) L Mean Corpuscular Hemoglobin 23.9 PG (27.0-31.0) L Mean Corpuscular Hemoglobin Concent 31.7 G/DL (32.0-36.0) L Red Cell Distribution Width 15.7 % (11.6-14.8) H Platelet Count 339 K/UL (150-450) Mean Platelet Volume 5.7 FL (6.5-10.1) L Neutrophils (%) (Auto) % (45.0-75.0) Lymphocytes (%) (Auto) % (20.0-45.0) Monocytes (%) (Auto) % (1.0-10.0) Eosinophils (%) (Auto) % (0.0-3.0) Basophils (%) (Auto) % (0.0-2.0) Differential Total Cells Counted 100 Neutrophils % (Manual) 36 % (45-75) L Lymphocytes % (Manual) 55 % (20-45) H Monocytes % (Manual) 7 % (1-10) Eosinophils % (Manual) 1 % (0-3) Basophils % (Manual) 1 % (0-2) Band Neutrophils 0 % (0-8) Platelet Estimate Adequate Platelet Morphology Normal Hypochromasia 1+ Anisocytosis 1+ Sodium Level 140 MMOL/L (136-145) Potassium Level 3.8 MMOL/L (3.5-5.1) Chloride Level 104 MMOL/L (98-107) Carbon Dioxide Level 25 MMOL/L (21-32) Anion Gap 11 mmol/L (5-15) Blood Urea Nitrogen 7 mg/dL (7-18) Creatinine 0.8 MG/DL (0.55-1.30) Estimat Glomerular Filtration Rate > 60 mL/min (>60) Glucose Level 78 MG/DL (74-106) Calcium Level 8.6 MG/DL (8.5-10.1) Lactate Dehydrogenase 331 U/L (81-234) H Angiotensin Converting Enzyme Pending Bartonella henselae IgG Antibody Pending Bartonella henselae IgM Antibody Pending Brucella IgG Antibody Pending Brucella IgM Antibody Pending Q Fever Phase I IgG Antibody Pending Q Fever Phase II IgG Antibody Pending TB Test (T-Spot) Pending TB Test Nil Control (T-Spot) Pending TB Test Panel A (T-Spot) Pending TB Test Panel B (T-Spot) Pending TB Test Positive Control (T-Spot) Pending Typhus Fever IgG Antibody Titer Pending Typhus Fever IgG Antibody Pending Typhus Fever IgM Antibody Titer Pending Typhus Fever IgM Antibody Pending Current Medications Medications (Trade) Dose Ordered Sig/Aileen Route PRN Reason Start Time Stop Time Status Last Admin Dose Admin Acetaminophen/ Hydrocodone Bitart ([place] 5/325) 1 tab Q6H PRN ORAL For Pain 12/05/18 06:00 12/12/18 05:59 12/07/18 15:01 Albuterol Sulfate (Proventil MDI) 2 puff Q4H PRN INH cough/wheezing 12/05/18 06:00 01/04/19 05:59 12/07/18 08:22 Barium Sulfate (Readi-Cat 2) 450 ml NOW PRN ORAL Radiology Procedure 12/05/18 17:30 12/07/18 17:17 Benzonatate (Tessalon Perles) 100 mg THREE TIMES A DAY ORAL 12/05/18 09:00 01/04/19 08:59 12/07/18 08:19 Ceftriaxone Sodium 1 gm/ Dextrose 55 ml @ 110 mls/hr Q24H IVPB 12/06/18 00:00 12/13/18 00:00 12/07/18 00:20 Doxycycline Monohydrate (Vibramycin) 100 mg EVERY 12 HOURS ORAL 12/05/18 21:00 12/12/18 20:59 12/07/18 08:19 Ibuprofen (Motrin) 800 mg Q8H PRN ORAL FEVER 12/05/18 06:00 01/04/19 05:59 12/05/18 10:42 Iopamidol (Isovue-300 100ml) 100 ml NOW PRN INJ Radiology Procedure 12/05/18 17:30 12/07/18 17:17 Iopamidol (Isovue-300 100ml) 100 ml NOW PRN INJ Radiology Procedure 12/05/18 17:30 12/07/18 17:17 Iopamidol (Isovue-300 100ml) 100 ml NOW PRN INJ Radiology Procedure 12/05/18 17:30 12/07/18 17:29 Lidocaine HCl (Xylocaine 1% 30ml) 30 ml NOW PRN INJ Radiology Procedure 12/06/18 18:45 12/08/18 18:41 Methocarbamol (Robaxin) 750 mg TID ORAL 12/05/18 09:00 01/04/19 08:59 12/07/18 08:18 Prednisone (predniSONE) 40 mg DAILY ORAL 12/05/18 09:00 01/04/19 08:59 12/07/18 08:17 Promethazine HCl/ Codeine (Phenergan with Codeine) 5 ml Q4H PRN ORAL For Cough 12/05/18 12:15 01/04/19 12:14 12/06/18 19:08 Jany Eason M.D. Dec 07, 2018 16:28
[2018-12-07 16:50] VITALS: BP 120/87
[2018-12-07] MEDS ORDERED: DOXYCYCLINE HY100 M2 ORAL (17:00)
--- NOTE | 2018-12-07 17:01 | Pulmonology Progress Note ---
Assessment/Plan Problems: (1) Pneumonia (2) Acute febrile illness (3) Influenza-like symptoms (4) Multiple sclerosis (5) History of lupus (6) Hypertension Assessment/Plan CT reviewed pt has pneumonia on CT improving afebrile now dc home as recommended by ID with 3 more days of oral abx. Subjective ROS Limited/Unobtainable: No Constitutional: Reports: no symptoms HEENT: Repors: no symptoms Allergies: Coded Allergies: CARBAMAZEPINE (Unverified Allergy, Unknown, 09/25/14) Objective Last 24 Hour Vital Signs Date Time Temp Pulse Resp B/P (MAP) Pulse Ox O2 Delivery O2 Flow Rate FiO2 12/07/18 16:50 98.4 69 18 120/87 (98) 98 12/07/18 12:55 86 18 140/91 (107) 97 12/07/18 09:00 Room Air 12/07/18 08:24 70 19 98 Room Air 21 12/07/18 08:23 69 19 Room Air 21 12/07/18 08:22 69 18 97 12/07/18 08:12 98.9 90 18 128/93 (105) 97 12/07/18 04:00 97.8 75 16 144/93 (110) 95 12/07/18 00:00 97.8 77 16 140/91 (107) 96 12/06/18 21:22 97.9 12/06/18 21:00 Room Air 12/06/18 20:00 97.9 87 18 132/89 (103) 100 12/06/18 19:28 88 18 Room Air 21 12/06/18 19:27 88 20 97 Room Air 21 12/06/18 19:26 88 20 97 Room Air 21 Intake and Output 12/06/18 12/07/18 19:00 07:00 Intake Total 1200 ml 55 ml Balance 1200 ml 55 ml Intake Oral 1200 ml IV Total 55 ml # Voids 3 General Appearance: WD/WN HEENT: normocephalic Respiratory/Chest: chest wall non-tender, lungs clear Breasts: no masses Cardiovascular: normal rate Abdomen: normal bowel sounds, no organomegaly Genitourinary: normal external genitalia Microbiology Date/Time Source Procedure Growth Status 12/04/18 23:05 Blood Blood Culture - Preliminary NO GROWTH AFTER 48 HOURS Resulted 12/04/18 22:50 Blood Blood Culture - Preliminary NO GROWTH AFTER 48 HOURS Resulted 12/04/18 23:05 Nasal Nares Influenza Types A,B Antigen (CASSANDRA) - Final Complete Laboratory Tests 12/07/18 06:25: White Blood Count 4.7L, Red Blood Count 4.04L, Hemoglobin 9.7L, Hematocrit 30.5L , Mean Corpuscular Volume 75L, Mean Corpuscular Hemoglobin 23.9L, Mean Corpuscular Hemoglobin Concent 31.7L, Red Cell Distribution Width 15.7H, Platelet Count 339, Mean Platelet Volume 5.7L, Neutrophils (%) (Auto) , Lymphocytes (%) (Auto) , Monocytes (%) (Auto) , Eosinophils (%) (Auto) , Basophils (%) (Auto) , Differential Total Cells Counted 100, Neutrophils % ( Manual) 36L, Lymphocytes % (Manual) 55H, Monocytes % (Manual) 7, Eosinophils % ( Manual) 1, Basophils % (Manual) 1, Band Neutrophils 0, Platelet Estimate Adequate, Platelet Morphology Normal, Hypochromasia 1+, Anisocytosis 1+, Sodium Level 140, Potassium Level 3.8, Chloride Level 104, Carbon Dioxide Level 25, Anion Gap 11, Blood Urea Nitrogen 7, Creatinine 0.8, Estimat Glomerular Filtration Rate > 60, Glucose Level 78, Calcium Level 8.6, Lactate Dehydrogenase 331H, Angiotensin Converting Enzyme [Pending], Bartonella henselae IgG Antibody [Pending], Bartonella henselae IgM Antibody [Pending], Brucella IgG Antibody [Pending], Brucella IgM Antibody [Pending], Q Fever Phase I IgG Antibody [Pending], Q Fever Phase II IgG Antibody [Pending], TB Test (T- Spot) [Pending], TB Test Nil Control (T-Spot) [Pending], TB Test Panel A (T-Spot ) [Pending], TB Test Panel B (T-Spot) [Pending], TB Test Positive Control (T- Spot) [Pending], Typhus Fever IgG Antibody Titer [Pending], Typhus Fever IgG Antibody [Pending], Typhus Fever IgM Antibody Titer [Pending], Typhus Fever IgM Antibody [Pending] Current Medications Medications (Trade) Dose Ordered Sig/Aileen Route PRN Reason Start Time Stop Time Status Last Admin Dose Admin Acetaminophen/ Hydrocodone Bitart ([place] 5/325) 1 tab Q6H PRN ORAL For Pain 12/05/18 06:00 12/12/18 05:59 12/07/18 15:01 Albuterol Sulfate (Proventil MDI) 2 puff Q4H PRN INH cough/wheezing 12/05/18 06:00 01/04/19 05:59 12/07/18 08:22 Barium Sulfate (Readi-Cat 2) 450 ml NOW PRN ORAL Radiology Procedure 12/05/18 17:30 12/07/18 17:17 Benzonatate (Tessalon Perles) 100 mg THREE TIMES A DAY ORAL 12/05/18 09:00 01/04/19 08:59 12/07/18 08:19 Ceftriaxone Sodium 1 gm/ Dextrose 55 ml @ 110 mls/hr Q24H IVPB 12/06/18 00:00 12/13/18 00:00 12/07/18 00:20 Doxycycline Monohydrate (Vibramycin) 100 mg EVERY 12 HOURS ORAL 12/05/18 21:00 12/12/18 20:59 12/07/18 08:19 Ibuprofen (Motrin) 800 mg Q8H PRN ORAL FEVER 12/05/18 06:00 01/04/19 05:59 12/05/18 10:42 Iopamidol (Isovue-300 100ml) 100 ml NOW PRN INJ Radiology Procedure 12/05/18 17:30 12/07/18 17:17 Iopamidol (Isovue-300 100ml) 100 ml NOW PRN INJ Radiology Procedure 12/05/18 17:30 12/07/18 17:17 Iopamidol (Isovue-300 100ml) 100 ml NOW PRN INJ Radiology Procedure 12/05/18 17:30 12/07/18 17:29 Lidocaine HCl (Xylocaine 1% 30ml) 30 ml NOW PRN INJ Radiology Procedure 12/06/18 18:45 12/08/18 18:41 Methocarbamol (Robaxin) 750 mg TID ORAL 12/05/18 09:00 01/04/19 08:59 12/07/18 08:18 Prednisone (predniSONE) 40 mg DAILY ORAL 12/05/18 09:00 01/04/19 08:59 12/07/18 08:17 Promethazine HCl/ Codeine (Phenergan with Codeine) 5 ml Q4H PRN ORAL For Cough 12/05/18 12:15 01/04/19 12:14 12/06/18 19:08 Kadeem Lainez MD Dec 07, 2018 17:01
--- NOTE | 2018-12-07 18:17 | Internal Med Progress Note ---
Subjective Physician Name Jaosn Gonzalez Attending Physician Jason Gonzalez MD Current Medications Medications (Trade) Dose Ordered Sig/Aileen Route PRN Reason Start Time Stop Time Status Last Admin Dose Admin Acetaminophen/ Hydrocodone Bitart ([place] 5/325) 1 tab Q6H PRN ORAL For Pain 12/05/18 06:00 12/12/18 05:59 12/07/18 15:01 Albuterol Sulfate (Proventil MDI) 2 puff Q4H PRN INH cough/wheezing 12/05/18 06:00 01/04/19 05:59 12/07/18 08:22 Benzonatate (Tessalon Perles) 100 mg THREE TIMES A DAY ORAL 12/05/18 09:00 01/04/19 08:59 12/07/18 08:19 Ceftriaxone Sodium 1 gm/ Dextrose 55 ml @ 110 mls/hr Q24H IVPB 12/06/18 00:00 12/13/18 00:00 12/07/18 00:20 Doxycycline Monohydrate (Vibramycin) 100 mg EVERY 12 HOURS ORAL 12/05/18 21:00 12/12/18 20:59 12/07/18 08:19 Ibuprofen (Motrin) 800 mg Q8H PRN ORAL FEVER 12/05/18 06:00 01/04/19 05:59 12/05/18 10:42 Lidocaine HCl (Xylocaine 1% 30ml) 30 ml NOW PRN INJ Radiology Procedure 12/06/18 18:45 12/08/18 18:41 Methocarbamol (Robaxin) 750 mg TID ORAL 12/05/18 09:00 01/04/19 08:59 12/07/18 08:18 Prednisone (predniSONE) 40 mg DAILY ORAL 12/05/18 09:00 01/04/19 08:59 12/07/18 08:17 Promethazine HCl/ Codeine (Phenergan with Codeine) 5 ml Q4H PRN ORAL For Cough 12/05/18 12:15 01/04/19 12:14 12/06/18 19:08 Allergies: Coded Allergies: CARBAMAZEPINE (Unverified Allergy, Unknown, 09/25/14) Subjective Awake, alert, responsive, complaining less headache, no chest pain, no shortness of breath, family member at the bedside. Objective Last Vital Signs Date Time Temp Pulse Resp B/P (MAP) Pulse Ox O2 Delivery O2 Flow Rate FiO2 12/07/18 16:50 98.4 69 18 120/87 (98) 98 12/07/18 09:00 Room Air 12/07/18 08:24 21 Laboratory Tests Test 12/07/18 06:25 White Blood Count 4.7 K/UL (4.8-10.8) L Red Blood Count 4.04 M/UL (4.20-5.40) L Hemoglobin 9.7 G/DL (12.0-16.0) L Hematocrit 30.5 % (37.0-47.0) L Mean Corpuscular Volume 75 FL (80-99) L Mean Corpuscular Hemoglobin 23.9 PG (27.0-31.0) L Mean Corpuscular Hemoglobin Concent 31.7 G/DL (32.0-36.0) L Red Cell Distribution Width 15.7 % (11.6-14.8) H Platelet Count 339 K/UL (150-450) Mean Platelet Volume 5.7 FL (6.5-10.1) L Neutrophils (%) (Auto) % (45.0-75.0) Lymphocytes (%) (Auto) % (20.0-45.0) Monocytes (%) (Auto) % (1.0-10.0) Eosinophils (%) (Auto) % (0.0-3.0) Basophils (%) (Auto) % (0.0-2.0) Differential Total Cells Counted 100 Neutrophils % (Manual) 36 % (45-75) L Lymphocytes % (Manual) 55 % (20-45) H Monocytes % (Manual) 7 % (1-10) Eosinophils % (Manual) 1 % (0-3) Basophils % (Manual) 1 % (0-2) Band Neutrophils 0 % (0-8) Platelet Estimate Adequate Platelet Morphology Normal Hypochromasia 1+ Anisocytosis 1+ Sodium Level 140 MMOL/L (136-145) Potassium Level 3.8 MMOL/L (3.5-5.1) Chloride Level 104 MMOL/L (98-107) Carbon Dioxide Level 25 MMOL/L (21-32) Anion Gap 11 mmol/L (5-15) Blood Urea Nitrogen 7 mg/dL (7-18) Creatinine 0.8 MG/DL (0.55-1.30) Estimat Glomerular Filtration Rate > 60 mL/min (>60) Glucose Level 78 MG/DL (74-106) Calcium Level 8.6 MG/DL (8.5-10.1) Lactate Dehydrogenase 331 U/L (81-234) H Angiotensin Converting Enzyme Pending Bartonella henselae IgG Antibody Pending Bartonella henselae IgM Antibody Pending Brucella IgG Antibody Pending Brucella IgM Antibody Pending Q Fever Phase I IgG Antibody Pending Q Fever Phase II IgG Antibody Pending TB Test (T-Spot) Pending TB Test Nil Control (T-Spot) Pending TB Test Panel A (T-Spot) Pending TB Test Panel B (T-Spot) Pending TB Test Positive Control (T-Spot) Pending Typhus Fever IgG Antibody Titer Pending Typhus Fever IgG Antibody Pending Typhus Fever IgM Antibody Titer Pending Typhus Fever IgM Antibody Pending Microbiology Date/Time Source Procedure Growth Status 12/04/18 23:05 Blood Blood Culture - Preliminary NO GROWTH AFTER 48 HOURS Resulted 12/04/18 22:50 Blood Blood Culture - Preliminary NO GROWTH AFTER 48 HOURS Resulted 12/04/18 23:05 Nasal Nares Influenza Types A,B Antigen (CASSANDRA) - Final Complete Intake and Output 12/06/18 12/07/18 19:00 07:00 Intake Total 1200 ml 55 ml Balance 1200 ml 55 ml Intake Oral 1200 ml IV Total 55 ml # Voids 3 Objective General: No acute distress, awake and alert HEENT: NCAT, sclera anicteric, PERRL, EOMI. Neck: Supple, no significant jugular venous distention, Lungs: Good inspiratory effort, clear to auscultation bilaterally, no Wheeze or Rales. Heart: Regular rate and rhythm, normal S1/S2, no murmur. Abdomen: soft, nontender, nondistended. Normoactive bowel sounds, morbid obesity. / Rectal: Refused and deferred. Extremities: No Cyanosis , clubbing or edema. Neuro: A&O x 3, Able to move all extremities Skin: warm, no rashes or lesions Assessment/Plan Assessment/Plan (1) Pneumonia (2) Acute febrile illness (3) Influenza-like symptoms (4) Multiple sclerosis (5) History of lupus (6) Hypertension Plan: Considered to follow-up as outpatient for neck biopsy results. Discharge home today. Jason Gonzalez MD Dec 07, 2018 18:17
--- NOTE | 2018-12-07 19:12 | NUR ---
CASE MANAGEMENT: REVIEW SI: PNA T 98.4 HR 69 RR 18 BP 120/87 SAT 97% ROOM AIR WBC 4.7 H/H 9.7/30.3 IS: CEFTRIAXONE IV Q24HR DOXYCYCLINE PO Q12HR PREDNISONE PO QD MED/SURG STATUS DCP: PATIENT IS FROM HOME
--- NOTE | 2018-12-07 19:40 | NUR ---
NURSE NOTES: patient discharge with discharge prescription give,prescription was filled by outpatient pharmacy.ID hospital band removed,IV removed,patient has personal belonging,Patient family member here to take patient home.Patient accompany down to private vehicle.
--- NOTE | 2018-12-13 09:46 | Discharge Summary ---
Discharge Summary Discharge Summary _ DATE OF ADMISSION: 12/04/2018 DATE OF DISCHARGE: 12/07/2018 DISCHARGED BY: Dr. Gonzalez REASON FOR ADMISSION: 43 years old female with past medical history of seronegative lupus, asthma, multiple sclerosis, presented to emergency department with fever Upon evaluation patient was found to be febrile and tachycardic. Pulse oximetry was stable on room air. Laboratory workup revealed no leukocytosis, hemoglobin 9.5, hematocrit 30.5. Potassium 3.1. Urinalysis revealed no evidence of UTI. Chest x-ray revealed no acute cardiopulmonary pathology. Echocardiogram revealed patient will benefit from neurology and rheumatology evaluation as outpatient. Patient was admitted for further management. CONSULTANTS: pulmonary Dr. Fatou CR specialist Dr. Chavarria [facility]SE: Patient admitted and started on empiric antibiotic as per ID recommendation. Supplemental oxygen provided as needed to keep pulse oximetry above 92%. Antitussive provided as needed. Pan Devulcanizer Helper followed. Blood cultures were negative. Rapid influenza screen test was negative. No leukocytosis. Venous duplex bilateral lower extremity revealed no evidence of acute DVT. CT of the head revealed no evidence of acute intracranial bleeding mass-effect or contrast-enhancing media lesion. Minimal periventricular deep white matter low-attenuation consistent with chronic ischemic changes. Neck CT demonstrated bilateral mild cervical lymphadenopathy. CT scan of the chest abdomen and pelvis revealed right lower lobe opacity, essentially unchanged from prior exam of 11/09/2018, may represent an area of chronic scarring, although could represent residual acute infiltrate. Multiple other areas of parenchymal opacity, mostly subpleural, likely representing areas of parenchymal scarring as well. New ground glass opacity in the left upper lobe, likely represents an area of acute infectious or noninfectious inflammation Probable left lung calcified granuloma again demonstrated Interim resolution of previously demonstrated trace right pleural effusion Mild rectal distention with stool No acute abdominal process otherwise, Per infectious disease specialist, patient had ever of unknown origin. Rheumatoid workup and workup for atypical infection initiated. Echocardiogram revealed preserved ejection fraction of 60-65% with mild left ventricular hypertrophy. No evidence of wall motion abnormality. Right ventricular systolic pressure of 34. Rheumatoid factor was negative. FABIOLA screen was negative. Double-stranded DNA antibody was negative. Hepatitis panel was negative. HIV test was nonreactive. TB spot was negative. Typhus fever and Q fever serology negative RPR was nonreactive. Brucella serology negative. NOY level still pending Cocci, Rickettsia and Brucella serology still pending Antibiotics provided as per infectious disease doctor recommendation. ID recommended to discharge on oral doxycycline for additional 4 more days to complete the course. Patient undergone ultrasound-guided lymph node biopsy. Culture revealed no growth. Biopsy results still pending Infectious disease doctor recommended that if lymph node biopsy come up not conclusive, consider peripheral lung nodule biopsy , which can be done as outpatient. Pain management was addressed. Blood pressure was closely monitored remained stable. Renal parameters and electrolytes were closely monitored. Electrolytes corrected as needed/potassium. Prednisone continued. Supportive care provided. Fevers resolved. Patient clinically stabilized. Patient was stable for discharge home on oral antibiotic to complete the course. FINAL DIAGNOSIS Acute febrile illness Possible pneumonia Asthma Seronegative lupus Multiply sclerosis Hypertension Cervical lymphadenopathy , status post lymph node biopsy Influenza-like symptoms DISCHARGE MEDICATIONS: See Medication Reconciliation list. DISCHARGE INSTRUCTIONS: She was discharged home. Follow-up with primary care provider in 1 week. Follow-up with the lymph node biopsy results. Outpatient follow-up with neurology and rheumatology recommen. Ded. I have been assigned to dictate discharge summary for this account. I was not involved in the patient's management. Viktoriya Rios NP Dec 13, 2018 09:46
--- NOTE | 2018-12-14 14:06 | Diagnostic Imaging Report ---
Indication: Palpable lymphadenopathy Technique: Informed consent obtained prior to commencement of the procedure from the patient. Procedural timeout performed. Ultrasound used to localize optimal note for sampling, thought to be a left posterior triangle node. Sterile prepping and draping. Local anesthesia with 1% lidocaine. Under real-time ultrasound guidance, a guide needle was passed to the periphery of the targeted node. Total of 6 needle passes then made using automated biopsy gun. Specimens submitted to pathology. A specimen was also submitted for culture and sensitivity. The patient tolerated the procedure well, without immediate complication. Comparison: Reference made to neck CT dated 12/06/2018 Findings: Intraprocedural images document needle placement within the targeted node Impression: Ultrasound-guided biopsy of left neck node, as described Pathology report is available, describes normal benign lymph node. This is concordant with imaging findings
== END 2018-12-07 20:20 | disposition home or self-care (01) | DRG 952 ==
LOC: EMR 21:57 → 4E 23:27 → EDBEDREQ 12-05 00:21
PROC: 07B23ZX Excision of Left Neck Lymphatic, Percutaneous Approach, Diagnostic (ICD-10-PCS; principal; 2018-12-04)
DX: J18.9 Pneumonia, unspecified organism (principal); M32.9 Systemic lupus erythematosus, unspecified; G35 Multiple sclerosis; J45.909 Unspecified asthma, uncomplicated; I10 Essential (primary) hypertension; R59.0 Localized enlarged lymph nodes; Z88.8 Allergy status to other drugs, medicaments and biological substances
CPT/HCPCS: 36415; 70470; 70491; 71045; 71260; 74177; 76942; 80048; 80053; 81003; 81025; 82164; 82550; 82553; 83605; 83615; 83735; 84100; 84484; 85007; 85025; 85651; 86021; 86039; 86140; 86200; 86225; 86431; 86592; 86611; 86635; 86703; 86705; 86709; 86710; 86803; 87040; 87070; 87081; 87116; 87205; 87340; 93005; 93306; 93970; 94640; 94664; 96361; 96365; 99285; J8499